=== PATIENT | male | born 1995 ===

== ENCOUNTER 2021-06-09 01:37 | Emergency (ER) | payer MEDICAID, SELFPAY ==
--- NOTE | ~2021-06-09 | CT_ITS ---
EXAMINATION: CT ABDOMEN AND PELVIS WITH CONTRAST CLINICAL INFORMATION: Right lower quadrant/flank pain COMPARISON: None TECHNIQUE: Multidetector volumetric images were obtained from the superior aspect of the liver through the pubic symphysis following administration 85 mL of Omnipaque 350 intravenous contrast. Sagittal and coronal reformatted images were obtained on the technologist's workstation. Oral contrast: No This CT examination was performed using dose optimization techniques as appropriate, variously including the following: *Automated exposure control *Adjustment of mA and/or kV according to patient size (this includes techniques or standardized protocols for targeted exams where dose is matched to indication/reason for exam; i.e. extremities or head) *Use of iterative reconstruction technique DLP: 394 mGy-cm FINDINGS: LUNG BASES: The visualized lung bases are unremarkable. LIVER, GALLBLADDER, AND BILIARY TREE: The liver is normal in size, shape, and attenuation. No focal hepatic lesion or biliary ductal dilatation is present. The gallbladder is unremarkable with no evidence of radiopaque gallstones, gallbladder wall thickening, or obvious pericholecystic inflammatory changes. PANCREAS: Unremarkable. SPLEEN: Unremarkable. ADRENAL GLANDS: Unremarkable. KIDNEYS AND URETERS: The kidneys are normal in size, shape, and attenuation. Delayed right-sided nephrogram. Mild right hydroureteronephrosis. 0.2 cm calculus in the distal ureter approximately 1 cm proximal to the ureterovesicular junction. No additional calculi noted. BLADDER: Decompressed with no gross abnormality. GASTROINTESTINAL TRACT: The stomach is unremarkable. Normal caliber small bowel. No obstruction. No colonic wall thickening or inflammatory change. No free air or free fluid. The appendix is not definitively seen. ABDOMINAL WALL: No significant hernia is appreciated. LYMPH NODES: Normal. VASCULAR: Unremarkable. PELVIC VISCERA: The prostate and seminal vesicles are unremarkable. OSSEOUS STRUCTURES: No acute or suspicious osseous abnormality. CT/CT abdomen pelvis w con IMPRESSION: Mild right hydroureteronephrosis with a 0.2 cm distal ureteral obstructing calculus.
[2021-06-09 01:41] VITALS: BP 127/74; PULSE 67; RESP 16; TEMP 36.8; O2SAT 96; BMI 25.1
[2021-06-09] MEDS: ondansetron HCL 4 MG/2 ML VIAL IVPUSH ×2 (02:22→04:24)
--- NOTE | 2021-06-09 02:24 | PC.NURSE ---
Addendum entered by Karmen Alonso 06/09/21 02:26: Pt unable to provide urine sample at this time, provided with bedside urinal when able. Original Note: Pt ambulating from the [facility] into room 17, pt vomiting multiple times while ambulating into room. Pt reports a s/o of right sided lower back pain followed by episodes of vomiting. Pt denies dysuria, reports a hx of kidney stones. IV established, labs obtained, pt medicated with Zofran per NOV. Awaiting primary MD beckman.
[2021-06-09 02:27] LABS: MANUAL DIFF FLAG NO
[2021-06-09 02:28] LABS: Basophils Percent Auto 0.3 % (0-2); Eosinophils Absolute Auto 0.2 X10*3/uL (0.0-0.4); Eosinophils Percent Auto 1.3 % (0-4); Hematocrit 41.4 % (42-52); Imm Gran Abs Auto 0.07 X10*3/uL (0.00-0.03); Imm Gran Pct Auto 0.5 % (0.0-0.4); Lymphocytes Absolute Auto 3.8 X10*3/uL (1.2-4.9); Lymphocytes Percent Auto 26.5 % (20-40); Mean Corpuscular HGB Conc 33.8 g/dl (31.0-36.0); Mean Corpuscular Hemoglobin 29.8 pg (27.0-33.0); Mean Corpuscular Volume 88.1 fL (80-98); Mean Platelet Volume 9.9 fL (9.4-12.4); Monocytes Absolute Auto 0.9 X10*3/uL (0.1-1.2); Monocytes Percent Auto 6.4 % (2-11); Neutrophils Absolute Auto 9.3 X10*3/uL (2.0-8.3); Platelet Count 283 X10*3/uL (160-400); Red Cell Distribution Width 12.5 % (11.0-16.0); White Blood Count 14.3 X10*3/uL (4.8-10.8)
[2021-06-09 02:45] LABS: Alanine Aminotransferase 18 U/L (0-40); Albumin Level 4.6 g/dL (3.5-5.0); Alkaline Phosphatase 78 U/L (39-117); Anion Gap 15 (12-20); Aspartate Amino Transferase 22 U/L (5-37); Bilirubin Direct 0.2 mg/dL (0.0-0.5); Bilirubin Total 0.2 mg/dL (0.0-1.0); Blood Urea Nitrogen 14 mg/dL (9-16); Calcium 9.7 mg/dL (8.4-10.2); Carbon Dioxide 23 mmol/L (22-29); Chloride 106 mmol/L (96-108); Creatinine Clr Calc Pharmacy 93.9; Estimated Glomerular Filt Rate > 60; Glucose Random 124 mg/dL (60-115); Lipase 15 U/L (8-78); Sodium 140 mmol/L (135-145); Total Protein 7.3 g/dL (6.5-8.0)
--- NOTE | 2021-06-09 02:55 | ED_ITS ---
HPI - Abdominal Pain General Chief Complaint: Abdominal Pain Stated Complaint: stomach/abd pain Time Seen by Provider: 06/09/21 01:45 Source: patient Mode of arrival: ambulatory History of Present Illness HPI narrative: 26-year-old male without significant past medical history presents with acute onset of right-sided sharp, do not abdominal pain that radiates into the right lower quadrant with associated nausea but no vomiting and states he gets chills when the pain is ?really bad?. In addition, patient endorses that he is having some dysuria with this pain. Related Data Previous Rx's Medication Instructions Recorded prednisone 20 mg tablet 20 mg PO DAILY 4 Days #4 tab 06/09/21 tamsulosin 0.4 mg capsule (Flomax) 0.4 mg PO BEDTIME #4 cap 06/09/21 Allergies Allergy/AdvReac Type Severity Reaction Status Date / Time No Known Allergies Allergy Verified 06/09/21 01:40 Review of Systems Review of Systems Pertinent positives and negatives as stated in HPI and 10 point review of systems is otherwise negative. Physical Exam Vital Signs: Vital Signs: Last Vital Signs Temp 98.3 F 06/09/21 01:41 Pulse 67 06/09/21 01:41 Resp 16 06/09/21 01:41 BP 127/74 06/09/21 01:41 Pulse Ox 96 06/09/21 01:41 Body Mass Index 25.1 VITAL SIGNS: Reviewed. GENERAL: Well developed, well nourished, in no acute distress. HEAD: Normocephalic/atraumatic EYES: PERRLA, EOMI OROPHARYNX: no oral lesions noted, posterior pharynx clear LUNGS: Normal breath sounds. No adventitious sounds or accessory muscle use. SpO2<96> CARDIOVASCULAR: Regular rate and rhythm without noted murmurs ABDOMEN: Soft, tenderness noted along right flank with CVA tenderness has well as pain on palpation the right lower quadrant without rebound, non-distended with bowel sounds. SKIN: Inspection of the skin reveals no rashes, NEUROLOGIC: Alert and oriented x 4. Course Course Course Narrative: 26-year-old male with history and clinical presentation suggestive of renal colic, appendicitis. Review of all investigations consistent with ureterolithiasis with mild hydro and after receiving pain medication patient is now feeling much better, pain free, and tolerating oral intake. He will be discharged in stable condition and was informed of all results. MDM - Abdominal Pain Lab Data Result diagrams: 06/09/21 02:21 10 02:21 Labs: Lab Results 06/09/21 06/09/21 06/09/21 Range/Units 02:21 02:21 02:21 WBC 14.3 H (4.8-10.8) X10*3/uL RBC 4.70 (4.60-5.80) X10*6/uL Hgb 14.0 (14.0-18.0) g/dl Hct 41.4 L (42-52) % MCV 88.1 (80-98) fL MCH 29.8 (27.0-33.0) pg MCHC 33.8 (31.0-36.0) g/dl RDW 12.5 (11.0-16.0) % Plt Count 283 (160-400) X10*3/uL MPV 9.9 (9.4-12.4) fL Immature Gran % (Auto) 0.5 H (0.0-0.4) % Neut % (Auto) 65.0 (45-73) % Lymph % (Auto) 26.5 (20-40) % [place] % (Auto) 6.4 (2-11) % Eos % (Auto) 1.3 (0-4) % Baso % (Auto) 0.3 (0-2) % Lymph # (Auto) 3.8 (1.2-4.9) X10*3/uL [place] # (Auto) 0.9 (0.1-1.2) X10*3/uL Eos # (Auto) 0.2 (0.0-0.4) X10*3/uL Baso # (Auto) 0.0 (0.0-0.2) X10*3/uL Abs Immat Gran (auto) 0.07 H (0.00-0.03) X10*3/uL Absolute Neuts (auto) 9.3 H (2.0-8.3) X10*3/uL Absolute Nucleated RBC 0.000 (0.0-0.012) X10*3/uL Nucleated RBC % (auto) 0.0 (0.0-0.2) /100WBC Sodium 140 (135-145) mmol/L Potassium 4.0 (3.3-5.1) mmol/L Chloride 106 (96-108) mmol/L Carbon Dioxide 23 (22-29) mmol/L Anion Gap 15 (12-20) BUN 14 (9-16) mg/dL Creatinine 1.17 (0.5-1.4) mg/dL Estim Creat Clear Calc 93.9 Estimated GFR > 60 Random Glucose 124 H (60-115) mg/dL Calcium 9.7 (8.4-10.2) mg/dL Total Bilirubin 0.2 Cancelled (0.0-1.0) mg/dL Direct Bilirubin 0.2 Cancelled (0.0-0.5) mg/dL AST 22 Cancelled (5-37) U/L ALT 18 Cancelled (0-40) U/L Alkaline Phosphatase 78 Cancelled (39-117) U/L Total Protein 7.3 Cancelled (6.5-8.0) g/dL Albumin 4.6 Cancelled (3.5-5.0) g/dL Lipase 15 Cancelled (8-78) U/L Urine Color Urine Appearance Urine pH (5.0-8.0) Ur Specific [place] (1.005-1.025) Urine Protein (NEG-TRACE) MG/DL Urine Glucose (UA) (NEG) MG/DL Urine Ketones (NEG) MG/DL Urine Blood (NEG) Urine Nitrite (NEG) Ur Leukocyte Esterase (NEG) 06/09/21 Range/Units 04:29 WBC (4.8-10.8) X10*3/uL RBC (4.60-5.80) X10*6/uL Hgb (14.0-18.0) g/dl Hct (42-52) % MCV (80-98) fL MCH (27.0-33.0) pg MCHC (31.0-36.0) g/dl RDW (11.0-16.0) % Plt Count (160-400) X10*3/uL MPV (9.4-12.4) fL Immature Gran % (Auto) (0.0-0.4) % Neut % (Auto) (45-73) % Lymph % (Auto) (20-40) % [place] % (Auto) (2-11) % Eos % (Auto) (0-4) % Baso % (Auto) (0-2) % Lymph # (Auto) (1.2-4.9) X10*3/uL [place] # (Auto) (0.1-1.2) X10*3/uL Eos # (Auto) (0.0-0.4) X10*3/uL Baso # (Auto) (0.0-0.2) X10*3/uL Abs Immat Gran (auto) (0.00-0.03) X10*3/uL Absolute Neuts (auto) (2.0-8.3) X10*3/uL Absolute Nucleated RBC (0.0-0.012) X10*3/uL Nucleated RBC % (auto) (0.0-0.2) /100WBC Sodium (135-145) mmol/L Potassium (3.3-5.1) mmol/L Chloride (96-108) mmol/L Carbon Dioxide (22-29) mmol/L Anion Gap (12-20) BUN (9-16) mg/dL Creatinine (0.5-1.4) mg/dL Estim Creat Clear Calc Estimated GFR Random Glucose (60-115) mg/dL Calcium (8.4-10.2) mg/dL Total Bilirubin (0.0-1.0) mg/dL Direct Bilirubin (0.0-0.5) mg/dL AST (5-37) U/L ALT (0-40) U/L Alkaline Phosphatase (39-117) U/L Total Protein (6.5-8.0) g/dL Albumin (3.5-5.0) g/dL Lipase (8-78) U/L Urine Color YELLOW Urine Appearance CLEAR Urine pH 6.0 (5.0-8.0) Ur Specific [place] >= 1.030 H (1.005-1.025) Urine Protein TRACE (NEG-TRACE) MG/DL Urine Glucose (UA) NEG (NEG) MG/DL Urine Ketones NEG (NEG) MG/DL Urine Blood NEG (NEG) Urine Nitrite NEG (NEG) Ur Leukocyte Esterase NEG (NEG) Discharge Plan Discharge Clinical Impression: Renal colic, Ureterolithiasis Patient Disposition: Home, Self-Care Instructions: Renal Colic (ED), Ureteral Stones (ED) Additional Instructions: 1. Increase fluid hydration, especially with water. 2. Tylenol 1000 mg, orally, every 6 hours as needed for pain control. Do not exceed 4000 mg within 24 hours. 3. Ibuprofen 400 mg, orally with milk or food, every 6 hours as needed for pain control. 4. You have been provided with a referral to see Urology regarding your kidney stone and you should call Wednesday morning. Return to the ER for acute worsening of your symptoms. Prescriptions: New tamsulosin [Flomax] 0.4 mg capsule 0.4 mg PO BEDTIME Qty: 4 RF: 0 prednisone 20 mg tablet 20 mg PO DAILY 4 Days Qty: 4 RF: 0 Referrals: [facility] [Primary Care Provider] - 2 days Ray Allen MD [Physician] - 2 days [facility] Past Medical History Source: nursing notes reviewed Medical History No known health problems Social History Social History Advance Directives: No Advance Directives Information Provided: Yes
[2021-06-09] MEDS: 0.9 % Sodium Chloride 1,000 ML 999 ML IV (03:05)
[2021-06-09] MEDS: Ketorolac Tromethamine 15 MG/ML VIAL IVPUSH (03:05)
--- NOTE | 2021-06-09 03:27 | PC.NURSE ---
Pt off to CT on hospital bed.
--- NOTE | 2021-06-09 03:48 | PC.NURSE ---
Pt returns from CT on hospital bed at this time. Per CT staff, pt vomiting several times in CT. Awaiting CT results.
[2021-06-09] MEDS: fentaNYL citrate/PF 100 MCG/2 ML VIAL 25 MCG IVPUSH (04:25)
--- NOTE | 2021-06-09 04:29 | PC.NURSE ---
Pt medicated per NOV. UA obtained and sent.
[2021-06-09 04:42] LABS: Appearance Urine CLEAR; Color Urine YELLOW; Glucose Urine UA NEG (NEG); Leukocyte Esterase Urine NEG (NEG); Nitrite Urine NEG (NEG); Specific Gravity - Urine >= 1.030 (1.005-1.025); Urine Blood NEG (NEG); Urine Ketones NEG (NEG); Urine Protein TRACE MG/DL (NEG-TRACE)
--- NOTE | 2021-06-09 05:42 | PC.NURSE ---
MD at bedside discussing results and plan for discharge.
[2021-06-09 05:56] VITALS: BP 103/62; PULSE 68; RESP 16; O2SAT 98
== END 2021-06-09 06:34 | disposition home or self-care (01) ==
PROVIDERS: Emergency Provider Student in an Organized Health Care Education/Training Program
DX: N20.1 Calculus of ureter (principal); R11.0 Nausea; N23 Unspecified renal colic; Z79.899 Other long term (current) drug therapy
CPT/HCPCS: 36415; 74177; 80053; 81003; 82248; 83690; 85025; 96361; 96374; 96375; 96376; 99284; J1885; J2405; J3010

== ENCOUNTER 2022-05-12 23:06 | Emergency (ER) | payer MEDICAID, SELFPAY ==
--- NOTE | ~2022-05-12 | CT_ITS ---
EXAMINATION: CT ABDOMEN AND PELVIS WITHOUT CONTRAST CLINICAL INFORMATION: Right-sided pain with history of stones COMPARISON: 06/09/2021 TECHNIQUE: Multidetector volumetric imaging was performed from the superior aspect of the liver through the pubic symphysis. Sagittal and coronal reformatted images were obtained on the technologist's workstation. This CT examination was performed using dose optimization techniques as appropriate, variously including the following: *Automated exposure control *Adjustment of mA and/or kV according to patient size (this includes techniques or standardized protocols for targeted exams where dose is matched to indication/reason for exam; i.e. extremities or head) *Use of iterative reconstruction technique DLP: 453 mGy-cm FINDINGS: LUNG BASES: The visualized lung bases are unremarkable. LIVER, GALLBLADDER, AND BILIARY TREE: The liver is normal in size, shape, and attenuation. No focal hepatic lesion or biliary ductal dilatation is identified. The gallbladder is unremarkable with no evidence of radiopaque gallstones, gallbladder wall thickening, or obvious pericholecystic inflammatory changes. PANCREAS: Unremarkable. SPLEEN: Unremarkable. ADRENAL GLANDS: Unremarkable. KIDNEYS AND URETERS: There is a 2 mm calculus in the distal right ureter with minimal hydronephrosis. No left hydronephrosis. Several punctate bilateral renal calculi are noted. BLADDER: Unremarkable. GASTROINTESTINAL TRACT: No evidence of bowel obstruction. No significant bowel wall thickening is seen. Appendix is suspected to be collapsed. No free air or significant free fluid is seen. ABDOMINAL WALL: No significant hernia is appreciated. LYMPH NODES: No lymphadenopathy is seen, though assessment is limited in the absence of intravenous contrast. VASCULAR: Unremarkable. PELVIC VISCERA: Unremarkable. OSSEOUS STRUCTURES: Unremarkable. CT/CT abdomen pelvis wo IV con IMPRESSION: 1. Distal right ureteral calculus measuring 2 mm with minimal hydronephrosis. 2. Punctate bilateral renal calculi.
[2022-05-12 23:35] VITALS: BP 132/66; PULSE 63; RESP 18; TEMP 36.7; O2SAT 98; BMI 23.2
[2022-05-12 23:48] LABS: MANUAL DIFF FLAG NO
[2022-05-12 23:49] LABS: Basophils Percent Auto 0.2 % (0-2); Eosinophils Absolute Auto 0.3 X10*3/uL (0.0-0.4); Eosinophils Percent Auto 1.6 % (0-4); Hemoglobin 13.2 g/dl (14.0-18.0); Imm Gran Abs Auto 0.07 X10*3/uL (0.00-0.03); Imm Gran Pct Auto 0.4 % (0.0-0.4); Lymphocytes Absolute Auto 4.6 X10*3/uL (1.2-4.9); Lymphocytes Percent Auto 27.3 % (20-40); Mean Corpuscular HGB Conc 34.7 g/dl (31.0-36.0); Mean Corpuscular Hemoglobin 31.5 pg (27.0-33.0); Mean Corpuscular Volume 90.7 fL (80.0-98.0); Mean Platelet Volume 10.6 fL (9.4-12.4); Monocytes Absolute Auto 1.3 X10*3/uL (0.1-1.2); Monocytes Percent Auto 7.8 % (2-11); Neutrophils Absolute Auto 10.6 x10*3/uL (2.0-8.3); Neutrophils Percent Auto 62.7 % (45-73); Platelet Count 222 X10*3/uL (160-400); Red Blood Count 4.19 X10*6/uL (4.60-5.80); Red Cell Distribution Width 13.2 % (11.0-16.0); White Blood Count 16.9 X10*3/uL (4.8-10.8)
[2022-05-13 00:09] LABS: Alanine Aminotransferase 23 U/L (0-40); Albumin Level 4.5 g/dL (3.5-5.0); Alkaline Phosphatase 74 U/L (39-117); Anion Gap 16 (12-20); Aspartate Amino Transferase 26 U/L (5-37); Bilirubin Total 0.2 mg/dL (0.0-1.0); Blood Urea Nitrogen 15 mg/dL (9-16); Calcium 9.5 mg/dL (8.4-10.2); Carbon Dioxide 23 mmol/L (22-29); Chloride 107 mmol/L (96-108); Creatinine Clr Calc Pharmacy 91.7; Estimated Glomerular Filt Rate > 60; Glucose Random 100 mg/dL (60-115); Potassium 3.6 mmol/L (3.3-5.1); Sodium 142 mmol/L (135-145); Total Protein 7.1 g/dL (6.5-8.0)
[2022-05-13 04:00] VITALS: BP 107/62; PULSE 62; RESP 13; TEMP 36.6; O2SAT 99
--- NOTE | 2022-05-13 04:00 | ED.ABDPAIN ---
HPI - Abdominal Pain General Chief Complaint: Abdominal Pain Stated Complaint: kidney stones Time Seen by Provider: 05/13/22 03:56 Source: patient Mode of arrival: ambulatory Limitations: no limitations History of Present Illness HPI narrative: Patient's history of kidney stones in the past came with several months of pain in the right mid abdomen radiating to the right testicle since yesterday pain got worse prior to arrival with nausea and vomiting patient had 1 episode of kidney stone in the past mother has history of kidney stones. No hematuria no fever or chills Related Data Previous Rx's Medication Instructions Recorded prednisone 20 mg tablet 20 mg PO DAILY 4 days #4 tabs 06/09/21 tamsulosin 0.4 mg capsule (Flomax) 0.4 mg PO BEDTIME #4 caps 06/09/21 ondansetron 4 mg disintegrating 4 mg PO Q6-8H PRN nausea and 05/13/22 tablet vomiting #7 tabs oxycodone 5 mg tablet 5 mg PO Q6H PRN Moderate Pain 05/13/22 (Scale Score 5-6) #20 tabs tamsulosin 0.4 mg capsule (Flomax) 0.4 mg PO DAILY #7 caps 05/13/22 Allergies Allergy/AdvReac Type Severity Reaction Status Date / Time No Known Allergies Allergy Verified 06/09/21 01:40 Review of Systems Review of Systems Yes all other systems are reviewed and are negative [facility] Past Medical History Medical History No known health problems Social History Social History Patient Tobacco Use Status: Current everyday Tobacco user Smoked in Last 30 Days: Yes Substance Use Type: Marijuana Advance Directives: No Advance Directives Information Provided: No Physical Exam ED Vital Signs: Vital Signs - 24 hr 05/12/22 23:35 05/13/22 04:00 Temperature 98.1 F 97.9 F Pulse Rate 63 62 Respiratory Rate 18 13 Blood Pressure 132/66 107/62 Pulse Oximetry 98 99 Oxygen Delivery Method Room Air Room Air BMI result Body Mass Index 23.2 Appearance: Alert. Oriented X3. In moderate distress Eyes: PERRLA, No Nystagmus ENT: Pharynx normal. Oral Mucosa moist Neck: Normal inspection. Neck supple. CVS: Normal heart rate and rhythm. Pulses normal. Respiratory: No respiratory distress. Equal air entry bilateral, no wheezing/rales/rhonchi Abdomen: Soft and nontender. Bowel sounds are present, no mass palpable, right CVA tenderness+ Skin: Skin warm and dry. Normal skin color. Normal skin turgor. Extremities: No lower extremity edema. No calf tenderness Neuro: Oriented X 3. No motor deficit. MDM - Abdominal Pain Differential Diagnosis Differential diagnosis: Likely acute appendicitis and calculus of kidney Lab Data Attestation: I reviewed the patient's lab results. Result diagrams: 05/12/22 23:39 05/12/22 23:39 Labs: Lab Results 05/12/22 05/12/22 Range/Units 23:39 23:39 WBC 16.9 H (4.8-10.8) X10*3/uL RBC 4.19 L (4.60-5.80) X10*6/uL Hgb 13.2 L (14.0-18.0) g/dl Hct 38.0 L (42.0-52.0) % MCV 90.7 (80.0-98.0) fL MCH 31.5 (27.0-33.0) pg MCHC 34.7 (31.0-36.0) g/dl RDW 13.2 (11.0-16.0) % Plt Count 222 (160-400) X10*3/uL MPV 10.6 (9.4-12.4) fL Immature Gran % (Auto) 0.4 (0.0-0.4) % Neut % (Auto) 62.7 (45-73) % Lymph % (Auto) 27.3 (20-40) % [place] % (Auto) 7.8 (2-11) % Eos % (Auto) 1.6 (0-4) % Baso % (Auto) 0.2 (0-2) % Lymph # (Auto) 4.6 (1.2-4.9) X10*3/uL [place] # (Auto) 1.3 H (0.1-1.2) X10*3/uL Eos # (Auto) 0.3 (0.0-0.4) X10*3/uL Baso # (Auto) 0.0 (0.0-0.2) X10*3/uL Abs Immat Gran (auto) 0.07 H (0.00-0.03) X10*3/uL Absolute Neuts (auto) 10.6 H (2.0-8.3) x10*3/uL Absolute Nucleated RBC 0.000 (0.0-0.012) X10*3/uL Nucleated RBC % (auto) 0.0 (0.0-0.2) /100WBC Sodium 142 (135-145) mmol/L Potassium 3.6 (3.3-5.1) mmol/L Chloride 107 (96-108) mmol/L Carbon Dioxide 23 (22-29) mmol/L Anion Gap 16 (12-20) BUN 15 (9-16) mg/dL Creatinine 1.16 (0.5-1.4) mg/dL Estim Creat Clear Calc 91.7 Estimated GFR > 60 Random Glucose 100 (60-115) mg/dL Calcium 9.5 (8.4-10.2) mg/dL Total Bilirubin 0.2 (0.0-1.0) mg/dL AST 26 (5-37) U/L ALT 23 (0-40) U/L Alkaline Phosphatase 74 (39-117) U/L Total Protein 7.1 (6.5-8.0) g/dL Albumin 4.5 (3.5-5.0) g/dL Discharge Plan Discharge Clinical Impression: Calculus of kidney Patient Disposition: Home, Self-Care Instructions: Kidney Stones (ED) Additional Instructions: Drink plenty of fluids Pain medication and Flomax advised Follow with urologist if pain continues Prescriptions: New tamsulosin [Flomax] 0.4 mg capsule 0.4 mg PO DAILY Qty: 7 0RF ondansetron 4 mg tablet,disintegrating 4 mg PO Q6-8H PRN (Reason: nausea and vomiting) Qty: 7 0RF oxycodone 5 mg tablet 5 mg PO Q6H PRN (Reason: Moderate Pain (Scale Score 5-6)) Qty: 20 0RF Rx Instructions: Partial Fill upon patient request. No Action tamsulosin [Flomax] 0.4 mg capsule 0.4 mg PO BEDTIME Qty: 4 0RF prednisone 20 mg tablet 20 mg PO DAILY 4 Days Qty: 4 0RF Referrals: Ray Allen MD [Physician] - 1 week
[2022-05-13] MEDS: Morphine Sulfate 4 MG/ML CARTRIDGE IVPUSH (04:54)
[2022-05-13] MEDS: 0.9 % Sodium Chloride 1,000 ML 999 ML IV (04:54)
[2022-05-13] MEDS: Ketorolac Tromethamine 30 MG/ML VIAL IVPUSH (04:55)
[2022-05-13] MEDS: ondansetron HCL 4 MG/2 ML VIAL IVPUSH (04:55)
--- NOTE | 2022-05-13 05:03 | PC.NURSE ---
Pt medicated per NOV, A&O, pt resting quietly while on his cellphone.
[2022-05-13 06:25] VITALS: BP 105/64; PULSE 63; RESP 14; TEMP 37.6
--- NOTE | 2022-05-13 06:30 | PC.NURSE ---
discharge instructions given and explained to pt, all questions answered, pt ambulates safely and independently
== END 2022-05-13 06:30 | disposition home or self-care (01) ==
PROVIDERS: Emergency Provider Internal Medicine
DX: N13.2 Hydronephrosis with renal and ureteral calculous obstruction (principal); R10.9 Unspecified abdominal pain; Z87.442 Personal history of urinary calculi; F17.200 Nicotine dependence, unspecified, uncomplicated; F12.90 Cannabis use, unspecified, uncomplicated
CPT/HCPCS: 36415; 74176; 80053; 85025; 96374; 96375; 99284; 99285; J1885; J2270; J2405

== ENCOUNTER 2022-05-22 21:17 | Emergency (ER) | payer MEDICAID, SELFPAY ==
[2022-05-22 22:27] VITALS: BP 123/76; PULSE 63; RESP 20; TEMP 36.6; O2SAT 96; BMI 22.1
[2022-05-23 01:14] VITALS: BP 111/59; PULSE 63; O2SAT 99
--- NOTE | 2022-05-23 01:28 | ED.MALEGU ---
HPI - Male Genitourinary General Chief complaint: Urogenital-Male Stated complaint: kidney stones Time Seen by Provider: 05/23/22 01:21 Source: patient and old records reviewed Mode of arrival: ambulatory Limitations: no limitations History of Present Illness HPI Narrative: dx with R distal 2mm non obs stone 05/13 had pain earlier that was severe couldn't urinate, took his medication since waiting thinks he passed the stone and saw something in his urine Complaint: other (?passed stone) Onset (ago): week(s) (10 days ago ) Duration: now resolved Location: right flank Severity: moderate Quality: sharp Exacerbating factors: none Context: other (known stone) Associated symptoms: Reports urinary retention Related Data Previous Rx's Medication Instructions Recorded prednisone 20 mg tablet 20 mg PO DAILY 4 days #4 tabs 06/09/21 tamsulosin 0.4 mg capsule (Flomax) 0.4 mg PO BEDTIME #4 caps 06/09/21 ondansetron 4 mg disintegrating 4 mg PO Q6-8H PRN nausea and 05/13/22 tablet vomiting #7 tabs oxycodone 5 mg tablet 5 mg PO Q6H PRN Moderate Pain 05/13/22 (Scale Score 5-6) #20 tabs tamsulosin 0.4 mg capsule (Flomax) 0.4 mg PO DAILY #7 caps 05/13/22 Allergies Allergy/AdvReac Type Severity Reaction Status Date / Time No Known Allergies Allergy Verified 05/22/22 22:31 Review of Systems Review of Systems: Constitutional : No Weight loss, No Fever, No Chills ENT/Mouth : No sore throat, No Rhinorrhea Eyes: No Swelling, No Redness Cardiovascular : No Chest Pain, No SOB, NoEdema Respiratory : No Cough, No Sputum, No Wheezing Gastrointestinal : Positive Nausea, no Vomiting, no Diarrhea, positive abdominal Pain, No Hematochezia, No Melena Genitourinary : No Dysuria, No Urinary Frequency, No Hematuria, No Urgency , pos retention Musculoskeletal : No joint pain, No Myalgias, No Joint Swelling Skin : No Skin Lesions, No rash Neuro : No Weakness, No Numbness, No Dizziness, No Headache Psych : No Anxiety/Panic, No Depression Heme/Lymph: No Bruising, No Lymphadenopathy Endocrine : No Polyuria, No Polydipsia All other systems reviewed and are negative. [facility] Past Medical History Attestation statement: The following information was validated with the patient. Medical History No known health problems Social History Social History Patient Tobacco Use Status: Current everyday Tobacco user Substance Use Type: Marijuana Advance Directives: No Advance Directives Information Provided: No Physical Exam Vital Signs: Vital Signs: Last Vital Signs Temp 97.9 F 05/22/22 22:27 Pulse 63 05/23/22 01:14 Resp 20 05/22/22 22:27 BP 111/59 L 05/23/22 01:14 Pulse Ox 99 05/23/22 01:14 O2 Del Method 05/23/22 01:14 BMI result Body Mass Index 22.1 Appearance: Alert. Oriented X3. No acute distress. Eyes: Pupils equal, round and reactive to light. ENT: Pharynx normal. Neck: Normal inspection. Neck supple. CVS: Normal heart rate and rhythm. Pulses normal. Respiratory: No respiratory distress. Breath sounds normal. Abdomen: Soft and nontender. Skin: Skin warm and dry. Normal skin color. Normal skin turgor. Extremities: No lower extremity edema. No calf ttp Neuro: Oriented X 3. No motor deficit. No sensory deficit. Course Course Course Narrative: kidney function normal suspect he passed stone has no pain WBC cells but also RBCs and epi doubt UTI - no bacteria seen MDM - Male Genitourinary MDM Narrative Medical decision making narrative: 27 yo male with known small R ureter stone 2mm - came in with pain but has since think he passed it after he though he saw something in the urine, at this time will test his urine and repeat chem7 for kidney function Lab Data Result diagrams: 05/23/22 01:59 Labs: Lab Results 05/23/22 05/23/22 Range/Units 01:46 01:59 Sodium 141 (135-145) mmol/L Potassium 4.7 D (3.3-5.1) mmol/L Chloride 104 (96-108) mmol/L Carbon Dioxide 27 (22-29) mmol/L Anion Gap 15 (12-20) BUN 13 (9-16) mg/dL Creatinine 1.21 (0.5-1.4) mg/dL Estim Creat Clear Calc 86.6 Estimated GFR > 60 Random Glucose 99 (60-115) mg/dL Calcium 9.9 (8.4-10.2) mg/dL Urine Color Yellow Urine Appearance Clear Urine pH 6.0 (5.0-9.0) Ur Specific [place] 1.020 (1.005-1.025) Urine Protein Trace (Neg-Trace) mg/dL Urine Glucose (UA) Negative (Negative) mg/dL Urine Ketones 40 (Negative) mg/dL Urine Blood Small (1+) H (Negative) Urine Nitrite Negative (Negative) Ur Leukocyte Esterase Moderate (2+) H (Negative) Urine RBC 11-20 H (0-2) /HPF Urine WBC 11-20 H (0-5) /HPF Ur Squamous Epith Cells 3-5 (0-2) /HPF Calcium Oxalate Crystal Present Urine Bacteria None Seen (None Seen) Hyaline Casts 6-10 (0-2) /LPF Discharge Plan Discharge Clinical Impression: Calculus, ureteral Patient Disposition: Home, Self-Care Instructions: Ureteral Stones (ED) Additional Instructions: return to ED for any worsening symptoms or concerns based off your exam suspect you passed your stone continue to drink plenty of fluids stay hydrated Prescriptions: No Action tamsulosin [Flomax] 0.4 mg capsule 0.4 mg PO DAILY Qty: 7 0RF ondansetron 4 mg tablet,disintegrating 4 mg PO Q6-8H PRN (Reason: nausea and vomiting) Qty: 7 0RF oxycodone 5 mg tablet 5 mg PO Q6H PRN (Reason: Moderate Pain (Scale Score 5-6)) Qty: 20 0RF Rx Instructions: Partial Fill upon patient request. tamsulosin [Flomax] 0.4 mg capsule 0.4 mg PO BEDTIME Qty: 4 0RF prednisone 20 mg tablet 20 mg PO DAILY 4 Days Qty: 4 0RF Stand Alone Forms: Work/School Release
[2022-05-23 01:52] LABS: Appearance Urine Clear; Color Urine Yellow; Glucose Urine UA Negative (Negative); Leukocyte Esterase Urine Moderate (2+) (Negative); Nitrite Urine Negative (Negative); UMIC TRIGGER UACC YES; Urine Blood Small (1+) (Negative); Urine Ketones 40 mg/dL (Negative); Urine Protein Trace mg/dL (Neg-Trace)
[2022-05-23 02:05] LABS: Bacteria Urine None Seen (None Seen); Calcium Oxalate Crystals Urine Present; UACC Culture Trigger YES
[2022-05-23 02:27] LABS: Anion Gap 15 (12-20); Blood Urea Nitrogen 13 mg/dL (9-16); Calcium 9.9 mg/dL (8.4-10.2); Carbon Dioxide 27 mmol/L (22-29); Chloride 104 mmol/L (96-108); Creatinine Clr Calc Pharmacy 86.6; Estimated Glomerular Filt Rate > 60; Glucose Random 99 mg/dL (60-115); Potassium 4.7 mmol/L (3.3-5.1); Sodium 141 mmol/L (135-145)
--- NOTE | 2022-05-23 02:30 | PC.NURSE ---
pt a&ox3, vss, pt resting comfortably, RR even and unlabored. no new orders at this time.
== END 2022-05-23 02:47 | disposition home or self-care (01) ==
PROVIDERS: Emergency Provider Emergency Medicine
DX: N20.2 Calculus of kidney with calculus of ureter (principal); F17.200 Nicotine dependence, unspecified, uncomplicated; F12.90 Cannabis use, unspecified, uncomplicated
CPT/HCPCS: 36415; 80048; 81001; 81003; 87086; 99283

== ENCOUNTER 2022-12-31 17:30 | Emergency (ER) | payer MEDICAID, SELFPAY ==
[2022-12-31 18:39] VITALS: BP 106/62; PULSE 66; RESP 18; TEMP 36.8; O2SAT 98; BMI 22.1
--- NOTE | 2022-12-31 18:44 | ED_ITS ---
HPI - Nausea/Vomiting/Diarrhea General Chief complaint: Nausea/Vomiting/Diarrhea Stated complaint: Dehydrated? Related Data Previous Rx's ?Medication ?Instructions ?Recorded prednisone 20 mg tablet 20 mg PO DAILY 4 days #4 tabs 06/09/21 tamsulosin 0.4 mg capsule (Flomax) 0.4 mg PO BEDTIME #4 caps 06/09/21 ondansetron 4 mg disintegrating 4 mg PO Q6-8H PRN nausea and 05/13/22 tablet vomiting #7 tabs oxycodone 5 mg tablet 5 mg PO Q6H PRN Moderate Pain 05/13/22 (Scale Score 5-6) #20 tabs tamsulosin 0.4 mg capsule (Flomax) 0.4 mg PO DAILY #7 caps 05/13/22 hydrocortisone acetate 25 mg 25 mg MS BID 5 days #12 ea 01/01/23 rectal suppository (Anusol-HC) polyethylene glycol 3350 17 17 g PO DAILY PRN constipation 01/01/23 gram/dose oral powder (Miralax) #238 grams cefuroxime axetil 250 mg tablet 250 mg PO BID #14 tabs 01/26/23 ketorolac 10 mg tablet 10 mg PO Q6H PRN pain 5 days #20 01/27/23 tabs oxycodone 5 mg tablet 5 mg PO Q4H PRN pain #14 tabs 01/27/23 tamsulosin 0.4 mg capsule (Flomax) 0.4 mg PO DAILY #30 caps 01/27/23 cephalexin 500 mg capsule 500 mg PO BID #28 caps 02/11/23 cyclobenzaprine 10 mg tablet 10 mg PO TID PRN muscle spasm #10 02/11/23 tabs Allergies Allergy/AdvReac Type Severity Reaction Status Date / Time No Known Allergies Allergy Verified 02/11/23 10:19 [facility] Past Medical History Medical History No known health problems Social History Social History Alcohol intake: never Patient Tobacco Use Status: Current everyday Tobacco user Smoked in Last 30 Days: Yes Use of substances other than those prescribed or required for medical reasons: Yes Substance Use Type: Marijuana Advance Directives: No Advance Directives Information Provided: No Physical Exam 2 Vital Signs: Vital Signs: Last Vital Signs Temp 98.3 F 12/31/22 18:39 Pulse 66 12/31/22 18:39 Resp 18 12/31/22 18:39 BP 106/62 12/31/22 18:39 Pulse Ox 98 12/31/22 18:39 O2 Del Method Room Air 12/31/22 18:39 BMI result Body Mass Index 22.1 Course Course Course Narrative: This is an RME: Additional HPI, ROS, PE not included below will be deferred to primary provider. Medical Decision Making Lab Data 12/31/22 18:53 12/31/22 18:53 Labs: Lab Results 12/31/22 Range/Units 18:53 WBC 10.0 (4.8-10.8) X10*3/uL RBC 4.73 (4.60-5.80) X10*6/uL Hgb 14.0 (14.0-18.0) g/dl Hct 41.8 L (42.0-52.0) % MCV 88.4 (80.0-98.0) fL MCH 29.6 (27.0-33.0) pg MCHC 33.5 (31.0-36.0) g/dl RDW 12.3 (11.0-16.0) % Plt Count 258 (160-400) X10*3/uL MPV 10.3 (9.4-12.4) fL Immature Gran % (Auto) 0.1 (0.0-0.4) % Neut % (Auto) 68.1 (45-73) % Lymph % (Auto) 23.6 (20-40) % Sac % (Auto) 7.3 (2-11) % Eos % (Auto) 0.6 (0-4) % Baso % (Auto) 0.3 (0-2) % Lymph # (Auto) 2.4 (1.2-4.9) X10*3/uL Sac # (Auto) 0.7 (0.1-1.2) X10*3/uL Eos # (Auto) 0.1 (0.0-0.4) X10*3/uL Baso # (Auto) 0.0 (0.0-0.2) X10*3/uL Abs Immat Gran (auto) 0.01 (0.00-0.03) X10*3/uL Absolute Neuts (auto) 6.8 (2.0-8.3) x10*3/uL Absolute Nucleated RBC 0.000 (0.0-0.012) X10*3/uL Nucleated RBC % (auto) 0.0 (0.0-0.2) /100WBC Sodium 144 (135-145) mmol/L Potassium 4.0 (3.3-5.1) mmol/L Chloride 106 (96-108) mmol/L Carbon Dioxide 28 (22-29) mmol/L Anion Gap 14 (12-20) BUN 15 (9-16) mg/dL Creatinine 0.93 (0.5-1.4) mg/dL Estim Creat Clear Calc 112.7 Estimated GFR > 60 Random Glucose 77 (60-115) mg/dL Calcium 9.9 (8.4-10.2) mg/dL Magnesium 2.0 (1.6-2.6) mg/dL Total Bilirubin 0.9 (0.0-1.0) mg/dL AST 21 (5-37) U/L ALT 13 (0-40) U/L Alkaline Phosphatase 62 (39-117) U/L Total Protein 7.1 (6.5-8.0) g/dL Albumin 4.8 (3.5-5.0) g/dL Lipase 20 (8-78) U/L COVID-19 (LOREN) Negative (Negative) COVID-19 Clin Com See Note Influenza Type A (JEFFRY) Negative (Negative) Influenza Type B (JEFFRY) Negative (Negative) Influenza A & B Note See Note Discharge Plan Discharge Clinical Impression: Eloped from emergency department Patient Disposition: Elopement Prescriptions: No Action tamsulosin [Flomax] 0.4 mg capsule 0.4 mg PO DAILY Qty: 7 0RF ondansetron 4 mg tablet,disintegrating 4 mg PO Q6-8H PRN (Reason: nausea and vomiting) Qty: 7 0RF oxycodone 5 mg tablet 5 mg PO Q6H PRN (Reason: Moderate Pain (Scale Score 5-6)) Qty: 20 0RF Rx Instructions: Partial Fill upon patient request. tamsulosin [Flomax] 0.4 mg capsule 0.4 mg PO BEDTIME Qty: 4 0RF prednisone 20 mg tablet 20 mg PO DAILY 4 Days Qty: 4 0RF polyethylene glycol 3350 [Miralax] 17 gram/dose powder 17 g PO DAILY PRN (Reason: constipation) Qty: 238 0RF hydrocortisone acetate [Anusol-HC] 25 mg suppository 25 mg MS BID 5 Days Qty: 12 0RF cephalexin 500 mg capsule 500 mg PO BID Qty: 28 0RF cyclobenzaprine 10 mg tablet 10 mg PO TID PRN (Reason: muscle spasm) Qty: 10 0RF cefuroxime axetil 250 mg tablet 250 mg PO BID Qty: 14 0RF tamsulosin [Flomax] 0.4 mg capsule 0.4 mg PO DAILY Qty: 30 0RF ketorolac 10 mg tablet 10 mg PO Q6H PRN (Reason: pain) 5 Days Qty: 20 0RF oxycodone 5 mg tablet 5 mg PO Q4H PRN (Reason: pain) Qty: 14 0RF Rx Instructions: Patient may request partial fill; Partial Fill upon patient request. Discharge Date/Time: 12/31/22 22:53 Print Language: Albanian
[2022-12-31 18:58] LABS: MANUAL DIFF FLAG NO
[2022-12-31 19:12] LABS: Basophils Percent Auto 0.3 % (0-2); Eosinophils Absolute Auto 0.1 X10*3/uL (0.0-0.4); Eosinophils Percent Auto 0.6 % (0-4); Hematocrit 41.8 % (42.0-52.0); Imm Gran Abs Auto 0.01 X10*3/uL (0.00-0.03); Imm Gran Pct Auto 0.1 % (0.0-0.4); Lymphocytes Absolute Auto 2.4 X10*3/uL (1.2-4.9); Lymphocytes Percent Auto 23.6 % (20-40); Mean Corpuscular HGB Conc 33.5 g/dl (31.0-36.0); Mean Corpuscular Hemoglobin 29.6 pg (27.0-33.0); Mean Corpuscular Volume 88.4 fL (80.0-98.0); Mean Platelet Volume 10.3 fL (9.4-12.4); Monocytes Absolute Auto 0.7 X10*3/uL (0.1-1.2); Monocytes Percent Auto 7.3 % (2-11); Neutrophils Absolute Auto 6.8 x10*3/uL (2.0-8.3); Neutrophils Percent Auto 68.1 % (45-73); Platelet Count 258 X10*3/uL (160-400); Red Blood Count 4.73 X10*6/uL (4.60-5.80); Red Cell Distribution Width 12.3 % (11.0-16.0)
[2022-12-31 19:13] LABS: Alanine Aminotransferase 13 U/L (0-40); Albumin Level 4.8 g/dL (3.5-5.0); Alkaline Phosphatase 62 U/L (39-117); Anion Gap 14 (12-20); Aspartate Amino Transferase 21 U/L (5-37); Bilirubin Total 0.9 mg/dL (0.0-1.0); Blood Urea Nitrogen 15 mg/dL (9-16); Calcium 9.9 mg/dL (8.4-10.2); Carbon Dioxide 28 mmol/L (22-29); Chloride 106 mmol/L (96-108); Creatinine Clr Calc Pharmacy 112.7; Estimated Glomerular Filt Rate > 60; Glucose Random 77 mg/dL (60-115); Lipase 20 U/L (8-78); Sodium 144 mmol/L (135-145); Total Protein 7.1 g/dL (6.5-8.0)
[2022-12-31 19:14] LABS: COVID-19 Test Negative (Negative); IDNOW Serial# 08D9AD1C; IDNOW Serial# BCCEAD1C; Influenza A Negative (Negative); Influenza B2 Negative (Negative)
--- NOTE | 2022-12-31 22:53 | PC.NURSE ---
pt called into [facility] no answer- registered
== END 2022-12-31 22:53 | disposition left against medical advice (07) ==
PROVIDERS: Physician Assistant; Emergency Provider Emergency Medicine
DX: R11.2 Nausea with vomiting, unspecified (principal); R19.7 Diarrhea, unspecified; Z20.822 Contact with and (suspected) exposure to COVID-19; F17.200 Nicotine dependence, unspecified, uncomplicated; F12.90 Cannabis use, unspecified, uncomplicated; Z79.899 Other long term (current) drug therapy
CPT/HCPCS: 80053; 83690; 83735; 85025; 87502; 87635; 99281; 99283

== ENCOUNTER 2023-01-01 18:03 | Emergency (ER) | payer MEDICAID, SELFPAY ==
--- NOTE | ~2023-01-01 | XR_ITS ---
EXAMINATION: XR ABDOMEN KUB CLINICAL INDICATION: Abdominal pain. Question constipation. COMPARISON: 05/13/2022 TECHNIQUE: AP view of the abdomen. FINDINGS: Nonobstructive bowel gas pattern. No dilated loops of bowel. Scattered gas throughout the colon. No significant abnormal colonic stool burden. No suspicious calcifications. No acute osseous abnormality. XR/XR KUB IMPRESSION: Nonobstructive bowel gas pattern. No significant abnormal colonic stool burden.
[2023-01-01 19:34] VITALS: BP 113/77; PULSE 65; RESP 18; TEMP 36.8; O2SAT 99; BMI 23.6
--- NOTE | 2023-01-01 19:35 | ED_ITS ---
HPI - GI Bleed General Chief complaint: Abdominal Pain <AURE Campos - Last Filed: 01/01/23 19:37> Stated complaint: blood in stool, hemarroid? foamy stool, cpl days <AURE Campos - Last Filed: 01/01/23 19:37> Time Seen by Provider: 01/01/23 22:51 <AURE Campos - Last Filed: 01/01/23 19:37> Source: patient, RN notes reviewed and old records reviewed <Bear Ramirez - Last Filed: 01/01/23 23:48> Mode of arrival: ambulatory <Bear Ramirez - Last Filed: 01/01/23 23:48> Limitations: no limitations <Bear Ramirez - Last Filed: 01/01/23 23:48> History of Present Illness HPI Narrative: 27-year-old male presents for evaluation of rectal bleeding. He reports that he has had bright red blood per rectum on and off for the last few months He feels constipated and like he has to strain frequently He reports some nausea vomiting and diarrhea on off for the last few months as well Denies any fevers, chills He states ?I feel like there is a soft, squishy ball near my rectum. ? He states ?it is located on in a in her right side. ? <Bear Ramirez - Last Filed: 01/01/23 23:48> Related Data Home medications: Previous Rx's Medication Instructions Recorded prednisone 20 mg tablet 20 mg PO DAILY 4 days #4 tabs 06/09/21 tamsulosin 0.4 mg capsule (Flomax) 0.4 mg PO BEDTIME #4 caps 06/09/21 ondansetron 4 mg disintegrating 4 mg PO Q6-8H PRN nausea and 05/13/22 tablet vomiting #7 tabs oxycodone 5 mg tablet 5 mg PO Q6H PRN Moderate Pain 05/13/22 (Scale Score 5-6) #20 tabs tamsulosin 0.4 mg capsule (Flomax) 0.4 mg PO DAILY #7 caps 05/13/22 hydrocortisone acetate 25 mg 25 mg CO BID 5 days #12 ea 01/01/23 rectal suppository (Anusol-HC) polyethylene glycol 3350 17 17 g PO DAILY PRN constipation 01/01/23 gram/dose oral powder (Miralax) #238 grams <AURE Campos - Last Filed: 01/01/23 19:37> Allergies/Adverse reactions: Allergies Allergy/AdvReac Type Severity Reaction Status Date / Time No Known Allergies Allergy Verified 12/31/22 18:42 <AURE Campos - Last Filed: 01/01/23 19:37> Review of Systems Constitutional: Constitutional: Denies chills, Denies fever(s) and Reports weakness <Bear Ramirez - Last Filed: 01/01/23 23:48> Gastrointestinal: Gastrointestinal: Reports abdominal pain, Reports hematochezia, Reports constipation, Reports diarrhea, Reports loose stools and Reports nausea <Bear Ramirez - Last Filed: 01/01/23 23:48> Neurologic: Reports weakness <Bear Ramirez - Last Filed: 01/01/23 23:48> [facility] Past Medical History Medical History: Medical History No known health problems <AURE Campos - Last Filed: 01/01/23 19:37> Social History Social History: Social History Patient Tobacco Use Status: Current everyday Tobacco user Smoked in Last 30 Days: No Use of substances other than those prescribed or required for medical reasons: Refusing to respond Substance Use Type: Marijuana Advance Directives: No <AURE Campos - Last Filed: 01/01/23 19:37> Physical Exam Vital Signs: Vital Signs: Last Vital Signs Temp 97.8 F 01/01/23 23:20 Pulse 60 01/01/23 23:20 Resp 16 01/01/23 23:20 BP 111/65 01/01/23 23:20 Pulse Ox 98 01/01/23 23:20 O2 Del Method Room Air 01/01/23 23:20 BMI result Body Mass Index 23.6 <AURE Campos - Last Filed: 01/01/23 19:37> Vital Signs: Last Vital Signs Temp 97.8 F 01/01/23 23:20 Pulse 60 01/01/23 23:20 Resp 16 01/01/23 23:20 BP 111/65 01/01/23 23:20 Pulse Ox 98 01/01/23 23:20 O2 Del Method Room Air 01/01/23 23:20 BMI result Body Mass Index 23.6 <Bear Islasy - Last Filed: 01/01/23 23:48> Const: General: healthy appearing, comfortable, no acute distress, alert and awake <Bear OHudson - Last Filed: 01/01/23 23:48> Nutritional Appearance: well nourished < - Last Filed: 01/01/23 23:48> Orientation/consciousness: patient oriented x3 < Last Filed: 01/01/23 23:48> Resp: Effort & Inspection: normal respiratory effort, able to speak in complete sentences and not labored < Last Filed: 01/01/23 23:48> Cardio: Rate: regular rate < Last Filed: 01/01/23 23:48> Rhythm: regular rhythm < Last Filed: 01/01/23 23:48> GI: Inspection: No distended < Last Filed: 01/01/23 23:48> Palpation (GI): Soft to palpation, not firm, nontender, no guarding and not rigid < Last Filed: 01/01/23 23:48> Auscultation: normoactive bowel sounds <Bear OHudson - Last Filed: 01/01/23 23:48> Rectal Exam - Male: Yes normal sphincter tone and Yes Internal hemorrhoid(s) present (3-4:00 position visible when bearing down) <Bear OHudson - Last Filed: 01/01/23 23:48> Skin: General skin exam: no rashes or lesions noted and elasticity normal < Last Filed: 01/01/23 23:48> Neuro: General: patient oriented x3 <Bear Zeny Last Filed: 01/01/23 23:48> Cranial nerves: Yes Bilaterally intact EOM present <Beareva Ramirez - Last Filed: 01/01/23 23:48> Cognition (Neuro): normal cognition <Bear Ramirez - Last Filed: 01/01/23 23:48> Course Course Course Narrative: RME: 27yo M w/no sig PMHx c/o rectal bleeding x today. Admits sx have been on and off for awhile, but body felt weird today . Reports suspected bump to rectal area. Reports assoc abdominal pain, N/V, diarrhea. denies taking AC Patient presented to the ED yesterday however eloped Labs, UA, occult stool ordered Full HPI, ROS and PE to be performed by primary ED provider. <AURE Campos - Last Filed: 01/01/23 19:37> Medical Decision Making Medical Decision Making MDM Narrative: 27-year-old male presents for evaluation of rectal bleeding. He reports a lump that appears to be a internal hemorrhoid at the 3 o'clock position. He reports constipation will get a KUB. Abdominal exam is reassuring, he is soft, nondistended nontender. Less likely to be surgical abdomen. His blood work is reassuring, his blood counts are consistent with his baseline. His BUN to creatinine ratio is 18. Given the obvious internal hemorrhoids and bright red blood per rectum, this is likely the source. Will treat the internal hemorrhoids with Anusol suppositories. <Bear Ramirez - Last Filed: 01/01/23 23:48> Differential Diagnosis Internal hemorrhoids External hemorrhoid Constipation Diverticular bleed Rectal abscess <Bear Ramirez - Last Filed: 01/01/23 23:48> Lab Data MDM Lab Attestation statement: I reviewed the patient's lab results. <Bear Ramirez - Last Filed: 01/01/23 23:48> Result Diagrams: 01/01/23 21:30 01/01/23 21:30 <AURE Campos - Last Filed: 01/01/23 19:37> Labs: Lab Results 01/01/23 01/01/23 Range/Units 21:30 21:30 WBC 9.2 (4.8-10.8) X10*3/uL RBC 4.63 (4.60-5.80) X10*6/uL Hgb 13.8 L (14.0-18.0) g/dl Hct 40.9 L (42.0-52.0) % MCV 88.3 (80.0-98.0) fL MCH 29.8 (27.0-33.0) pg MCHC 33.7 (31.0-36.0) g/dl RDW 12.5 (11.0-16.0) % Plt Count 243 (160-400) X10*3/uL MPV 10.0 (9.4-12.4) fL Immature Gran % (Auto) 0.1 (0.0-0.4) % Neut % (Auto) 66.6 (45-73) % Lymph % (Auto) 26.7 (20-40) % [place] % (Auto) 6.0 (2-11) % Eos % (Auto) 0.4 (0-4) % Baso % (Auto) 0.2 (0-2) % Lymph # (Auto) 2.5 (1.2-4.9) X10*3/uL [place] # (Auto) 0.6 (0.1-1.2) X10*3/uL Eos # (Auto) 0.0 (0.0-0.4) X10*3/uL Baso # (Auto) 0.0 (0.0-0.2) X10*3/uL Abs Immat Gran (auto) 0.01 (0.00-0.03) X10*3/uL Absolute Neuts (auto) 6.1 (2.0-8.3) x10*3/uL Absolute Nucleated RBC 0.000 (0.0-0.012) X10*3/uL Nucleated RBC % (auto) 0.0 (0.0-0.2) /100WBC Sodium 142 (135-145) mmol/L Potassium 4.0 (3.3-5.1) mmol/L Chloride 107 (96-108) mmol/L Carbon Dioxide 27 (22-29) mmol/L Anion Gap 12 (12-20) BUN 18 H (9-16) mg/dL Creatinine 1.01 (0.5-1.4) mg/dL Estim Creat Clear Calc 107.9 Estimated GFR > 60 Random Glucose 98 (60-115) mg/dL Calcium 10.0 (8.4-10.2) mg/dL Total Bilirubin 0.9 (0.0-1.0) mg/dL Direct Bilirubin 0.3 (0.0-0.5) mg/dL AST 21 (5-37) U/L ALT 13 (0-40) U/L Alkaline Phosphatase 61 (39-117) U/L Total Protein 7.1 (6.5-8.0) g/dL Albumin 4.8 (3.5-5.0) g/dL Lipase 20 (8-78) U/L <AURE Campos - Last Filed: 01/01/23 19:37> Lab Results 01/01/23 01/01/23 Range/Units 21:30 21:30 WBC 9.2 (4.8-10.8) X10*3/uL RBC 4.63 (4.60-5.80) X10*6/uL Hgb 13.8 L (14.0-18.0) g/dl Hct 40.9 L (42.0-52.0) % MCV 88.3 (80.0-98.0) fL MCH 29.8 (27.0-33.0) pg MCHC 33.7 (31.0-36.0) g/dl RDW 12.5 (11.0-16.0) % Plt Count 243 (160-400) X10*3/uL MPV 10.0 (9.4-12.4) fL Immature Gran % (Auto) 0.1 (0.0-0.4) % Neut % (Auto) 66.6 (45-73) % Lymph % (Auto) 26.7 (20-40) % [place] % (Auto) 6.0 (2-11) % Eos % (Auto) 0.4 (0-4) % Baso % (Auto) 0.2 (0-2) % Lymph # (Auto) 2.5 (1.2-4.9) X10*3/uL [place] # (Auto) 0.6 (0.1-1.2) X10*3/uL Eos # (Auto) 0.0 (0.0-0.4) X10*3/uL Baso # (Auto) 0.0 (0.0-0.2) X10*3/uL Abs Immat Gran (auto) 0.01 (0.00-0.03) X10*3/uL Absolute Neuts (auto) 6.1 (2.0-8.3) x10*3/uL Absolute Nucleated RBC 0.000 (0.0-0.012) X10*3/uL Nucleated RBC % (auto) 0.0 (0.0-0.2) /100WBC Sodium 142 (135-145) mmol/L Potassium 4.0 (3.3-5.1) mmol/L Chloride 107 (96-108) mmol/L Carbon Dioxide 27 (22-29) mmol/L Anion Gap 12 (12-20) BUN 18 H (9-16) mg/dL Creatinine 1.01 (0.5-1.4) mg/dL Estim Creat Clear Calc 107.9 Estimated GFR > 60 Random Glucose 98 (60-115) mg/dL Calcium 10.0 (8.4-10.2) mg/dL Total Bilirubin 0.9 (0.0-1.0) mg/dL Direct Bilirubin 0.3 (0.0-0.5) mg/dL AST 21 (5-37) U/L ALT 13 (0-40) U/L Alkaline Phosphatase 61 (39-117) U/L Total Protein 7.1 (6.5-8.0) g/dL Albumin 4.8 (3.5-5.0) g/dL Lipase 20 (8-78) U/L <Bear Ramirez - Last Filed: 01/01/23 23:48> Independent Interpretation I performed an independent interpretation of an: Plain X-Ray (No fecal impaction) <Bear Ramirez - Last Filed: 01/01/23 23:48> Discharge Plan Discharge Clinical Impression: Internal hemorrhoid <AURE Campos - Last Filed: 01/01/23 19:37> Patient Disposition: Home, Self-Care <AURE Campos - Last Filed: 01/01/23 19:37> Instructions: Hemorrhoids (ED) <AURE Campos - Last Filed: 01/01/23 19:37> Additional Instructions: Use Anusol suppository twice daily for the next 5 days. You should also use MiraLax every night for the next 2 weeks to prevent straining while using the bathroom You may also lemon picker a Sitz bath with Epsom salt to soak in daily Follow-up with your primary doctor <AURE Campos - Last Filed: 01/01/23 19:37> Prescriptions: New polyethylene glycol 3350 [Miralax] 17 gram/dose powder 17 g PO DAILY PRN (Reason: constipation) Qty: 238 0RF hydrocortisone acetate [Anusol-HC] 25 mg suppository 25 mg CO BID 5 Days Qty: 12 0RF No Action tamsulosin [Flomax] 0.4 mg capsule 0.4 mg PO DAILY Qty: 7 0RF ondansetron 4 mg tablet,disintegrating 4 mg PO Q6-8H PRN (Reason: nausea and vomiting) Qty: 7 0RF oxycodone 5 mg tablet 5 mg PO Q6H PRN (Reason: Moderate Pain (Scale Score 5-6)) Qty: 20 0RF Rx Instructions: Partial Fill upon patient request. tamsulosin [Flomax] 0.4 mg capsule 0.4 mg PO BEDTIME Qty: 4 0RF prednisone 20 mg tablet 20 mg PO DAILY 4 Days Qty: 4 0RF <AURE Campos - Last Filed: 01/01/23 19:37>
[2023-01-01 21:35] LABS: MANUAL DIFF FLAG NO
[2023-01-01 21:37] LABS: Basophils Percent Auto 0.2 % (0-2); Eosinophils Percent Auto 0.4 % (0-4); Hematocrit 40.9 % (42.0-52.0); Hemoglobin 13.8 g/dl (14.0-18.0); Imm Gran Abs Auto 0.01 X10*3/uL (0.00-0.03); Imm Gran Pct Auto 0.1 % (0.0-0.4); Lymphocytes Absolute Auto 2.5 X10*3/uL (1.2-4.9); Lymphocytes Percent Auto 26.7 % (20-40); Mean Corpuscular HGB Conc 33.7 g/dl (31.0-36.0); Mean Corpuscular Hemoglobin 29.8 pg (27.0-33.0); Mean Corpuscular Volume 88.3 fL (80.0-98.0); Monocytes Absolute Auto 0.6 X10*3/uL (0.1-1.2); Neutrophils Absolute Auto 6.1 x10*3/uL (2.0-8.3); Neutrophils Percent Auto 66.6 % (45-73); Platelet Count 243 X10*3/uL (160-400); Red Blood Count 4.63 X10*6/uL (4.60-5.80); Red Cell Distribution Width 12.5 % (11.0-16.0); White Blood Count 9.2 X10*3/uL (4.8-10.8)
[2023-01-01 21:50] VITALS: BP 114/65; PULSE 74; RESP 16; TEMP 35.6; O2SAT 99
[2023-01-01 21:55] LABS: Alanine Aminotransferase 13 U/L (0-40); Albumin Level 4.8 g/dL (3.5-5.0); Alkaline Phosphatase 61 U/L (39-117); Anion Gap 12 (12-20); Aspartate Amino Transferase 21 U/L (5-37); Bilirubin Direct 0.3 mg/dL (0.0-0.5); Bilirubin Total 0.9 mg/dL (0.0-1.0); Blood Urea Nitrogen 18 mg/dL (9-16); Carbon Dioxide 27 mmol/L (22-29); Chloride 107 mmol/L (96-108); Creatinine Clr Calc Pharmacy 107.9; Estimated Glomerular Filt Rate > 60; Glucose Random 98 mg/dL (60-115); Lipase 20 U/L (8-78); Sodium 142 mmol/L (135-145); Total Protein 7.1 g/dL (6.5-8.0)
[2023-01-01 23:20] VITALS: BP 111/65; PULSE 60; RESP 16; TEMP 36.6; O2SAT 98
--- NOTE | 2023-01-01 23:21 | MHC.EDTECH ---
THIS PCT ASSUMED CARE OF PT AT 2300 ,VITALS SIGN TAKEN .
== END 2023-01-02 00:07 | disposition home or self-care (01) ==
PROVIDERS: Physician Assistant; Emergency Provider Emergency Medicine
DX: K64.8 Other hemorrhoids (principal); K62.5 Hemorrhage of anus and rectum; F17.200 Nicotine dependence, unspecified, uncomplicated; F12.90 Cannabis use, unspecified, uncomplicated; Z79.899 Other long term (current) drug therapy
CPT/HCPCS: 36415; 74018; 80048; 80076; 83690; 85025; 99283; 99284

== ENCOUNTER 2023-01-25 23:36 | Emergency (ER) | payer MEDICAID, SELFPAY ==
--- NOTE | ~2023-01-25 | US_ITS ---
EXAMINATION: US SCROTUM CLINICAL INFORMATION: Left testicle pain for one day. COMPARISON: None available. TECHNIQUE: A sonogram of the scrotum was performed assessing hawthorne-scale appearance and color Doppler flow. Spectral Doppler analysis of the arterial and venous flow were performed in the testes bilaterally. FINDINGS: RIGHT: Right testicle measures 4.9 x 2.1 x 2.7 cm, volume 15 mL. No focal testicular parenchymal lesions are visualized. Spectral Doppler analysis of the arterial and venous flow is normal in the right testis. Right epididymal head is normal in size. No right hydrocele or varicocele is seen. Right epididymal Doppler flow is normal. LEFT: Left testicle measures 4.8 x 1.9 x 3.9 cm, volume 15 mL. No focal testicular parenchymal lesions are visualized. Spectral Doppler analysis of the arterial and venous flow is normal in the left testis. Left epididymal head is normal in size. No left hydrocele or varicocele is seen. Left epididymal Doppler flow is normal. US/US scrotum doppler IMPRESSION: No evidence of testicular torsion, epididymitis, or orchitis. Unremarkable exam.
--- NOTE | ~2023-01-25 | US_ITS ---
EXAMINATION: US SCROTUM CLINICAL INFORMATION: Left testicle pain for one day. COMPARISON: None available. TECHNIQUE: A sonogram of the scrotum was performed assessing hawthorne-scale appearance and color Doppler flow. Spectral Doppler analysis of the arterial and venous flow were performed in the testes bilaterally. FINDINGS: RIGHT: Right testicle measures 4.9 x 2.1 x 2.7 cm, volume 15 mL. No focal testicular parenchymal lesions are visualized. Spectral Doppler analysis of the arterial and venous flow is normal in the right testis. Right epididymal head is normal in size. No right hydrocele or varicocele is seen. Right epididymal Doppler flow is normal. LEFT: Left testicle measures 4.8 x 1.9 x 3.9 cm, volume 15 mL. No focal testicular parenchymal lesions are visualized. Spectral Doppler analysis of the arterial and venous flow is normal in the left testis. Left epididymal head is normal in size. No left hydrocele or varicocele is seen. Left epididymal Doppler flow is normal. US/US scrotum IMPRESSION: No evidence of testicular torsion, epididymitis, or orchitis. Unremarkable exam.
--- NOTE | ~2023-01-25 | CT_ITS ---
EXAMINATION: CT ABDOMEN AND PELVIS WITHOUT CONTRAST CLINICAL INFORMATION: Left flank/testicular pain. COMPARISON: 05.13.2022. TECHNIQUE: Multidetector volumetric imaging was performed from the superior aspect of the liver through the pubic symphysis. Sagittal and coronal reformatted images were obtained on the technologist's workstation. This CT examination was performed using dose optimization techniques as appropriate, variously including the following: *Automated exposure control *Adjustment of mA and/or kV according to patient size (this includes techniques or standardized protocols for targeted exams where dose is matched to indication/reason for exam; i.e. extremities or head) *Use of iterative reconstruction technique DLP: 384 mGy-cm FINDINGS: LUNG BASES: The visualized lung bases are unremarkable. LIVER, GALLBLADDER, AND BILIARY TREE: The liver is normal in size, shape, and attenuation. No focal hepatic lesion or biliary ductal dilatation is present. The gallbladder is unremarkable with no evidence of radiopaque gallstones, gallbladder wall thickening, or obvious pericholecystic inflammatory changes. PANCREAS: Unremarkable. SPLEEN: Unremarkable. ADRENAL GLANDS: Unremarkable. KIDNEYS AND URETERS: There is a 2 mm calculus in the distal left ureter approximately 5 cm from the ureterovesical junction with minimal associated periureteral fat stranding and mild hydroureter, without significant hydronephrosis. Multiple punctate nonobstructive intrarenal calculi redemonstrated. BLADDER: Unremarkable. GASTROINTESTINAL TRACT: The small and large bowel are unremarkable. The appendix is unremarkable. ABDOMINAL WALL: No significant hernia is appreciated. LYMPH NODES: Normal. VASCULAR: Unremarkable. PELVIC VISCERA: Unremarkable. OSSEOUS STRUCTURES: Unremarkable. CT/CT abdomen pelvis wo IV con IMPRESSION: * There is a 2 mm calculus in the distal LEFT ureter approximately 5 cm from the ureterovesical junction with associated mild hydroureter and periureteral fat stranding. * Bilateral nonobstructive intrarenal calculi.
[2023-01-25 23:40] VITALS: BP 107/71; PULSE 64; RESP 18; TEMP 36.5; O2SAT 100; BMI 20.8
[2023-01-26 01:18] VITALS: BP 100/68; PULSE 71; RESP 18; O2SAT 98
--- NOTE | 2023-01-26 01:18 | ED_ITS ---
HPI - Male Genitourinary General Chief complaint: Urogenital-Male Stated complaint: Pain left testicle, burning in lower abdomen Time Seen by Provider: 01/26/23 01:11 Source: patient Mode of arrival: ambulatory Limitations: no limitations History of Present Illness HPI Narrative: 27-year-old male came in for evaluation of left testicular/left flank pain. Pain started since 10-12 hours ago in the left testicle then pain started to radiate to the left lower abdomen and left flank area, patient had history of kidney stones in the right side. Patient declined dysuria, hematuria, or penile discharge. Patient is sexually active with 1 partner stated that STD is not likely. Declined any trauma to the genital area. Related Data Previous Rx's Medication Instructions Recorded prednisone 20 mg tablet 20 mg PO DAILY 4 days #4 tabs 06/09/21 tamsulosin 0.4 mg capsule (Flomax) 0.4 mg PO BEDTIME #4 caps 06/09/21 ondansetron 4 mg disintegrating 4 mg PO Q6-8H PRN nausea and 05/13/22 tablet vomiting #7 tabs oxycodone 5 mg tablet 5 mg PO Q6H PRN Moderate Pain 05/13/22 (Scale Score 5-6) #20 tabs tamsulosin 0.4 mg capsule (Flomax) 0.4 mg PO DAILY #7 caps 05/13/22 hydrocortisone acetate 25 mg 25 mg PA BID 5 days #12 ea 01/01/23 rectal suppository (Anusol-HC) polyethylene glycol 3350 17 17 g PO DAILY PRN constipation 01/01/23 gram/dose oral powder (Miralax) #238 grams cefuroxime axetil 250 mg tablet 250 mg PO BID #14 tabs 01/26/23 Allergies Allergy/AdvReac Type Severity Reaction Status Date / Time No Known Allergies Allergy Verified 01/25/23 23:43 Review of Systems Review of Systems: All other systems are reviewed and are negative Constitutional: Reports as per HPI and Reports no additional constitutional complaints Eyes: Reports as per HPI and Reports no additional eye complaints Reports system reviewed and no additional complaints, except as documented Cardiovascular: Reports as per HPI and Reports no additional cardiovascular complaints Respiratory: Reports as per HPI and Reports no additional respiratory complaints Gastrointestinal: Reports as per HPI and Reports no additional gastrointestinal complaints Genitourinary: Reports no additional female genitourinary complaints Musculoskeletal: Reports no additional musculoskeletal complaints Skin/Breast: Reports system reviewed and no additional complaints, except as docu Psychiatric: Reports no additional psychiatric complaints Endocrine: Reports no additional endocrine complaints Hematologic/Lymphatic: Reports no additional hematologic/lymphatic complaints Allergic/Immunologic: Reports no additional allergic/immunologic complaints Reports system reviewed and no additional complaints, except as documented and Reports Abnormal speech present [facility] Past Medical History Medical History No known health problems Social History Social History Patient Tobacco Use Status: Current everyday Tobacco user Substance Use Type: Marijuana Advance Directives: No Advance Directives Information Provided: Yes Physical Exam Vital Signs: Vital Signs: Last Vital Signs Temp 97.7 F 01/26/23 02:00 Pulse 60 01/26/23 02:00 Resp 16 01/26/23 02:00 BP 106/57 L 01/26/23 02:00 Pulse Ox 98 01/26/23 02:00 O2 Del Method Room Air 01/26/23 02:00 BMI result Body Mass Index 20.8 Vital signs have been reviewed as appeared to be correct. Blood pressure no rmal. Heart rate normal. Respiration rate normal. Temperature normal. Oxygen saturation normal. Appearance: Alert. Oriented X3. No acute distress. Head: Normal external exam. Normocephalic. Atraumatic. No Guerrero signs noted. No raccoon eyes noted Eyes: PERRLA. EOMI. Conjunctiva and sclera normal. Eyelids normal. ENT: TM's Normal. Pharynx normal. Uvula midline. Moist mucous membranes. No trismus noted. No drooling noted. No muffled voice noted. Neck: Normal inspection. Neck supple. FROM. No adenopathy. Thyroid Normal. No meningeal signs. No neck mass noted. CVS: Normal heart rate and rhythm. Heart sound normal. No murmurs noted. Pulses normal throughout. Respiratory: No respiratory distress. Painless inspiration. Breath sounds normal. No wheezes/rales/rhonchi noted. Chest nontender. No accessory muscle usage noted or decreased air movement noted. Abdomen: Soft and nontender. Bowel sounds normal in all 4 quadrants. No distention noted. No organomegaly noted. No visible injury noted. exam: No distinct liver swelling or tenderness or redness, intact cremasteric reflex on both sides. Back: No CVA tenderness. Full range of motion noted. Skin: Skin warm and dry. Normal skin color. Normal skin turgor. No rashes/lesions/lacerations noted. Extremities: No lower extremity edema. Extremities exhibit normal range of motion. Extremities nontender. Neuro: Oriented X 3. Cranial nerve exam: II-XII are grossly intact No motor deficit. No sensory deficit. Reflexes normal. Course Course Course Narrative: 27-year-old came in with left testicular pain workup revealed patient has 2 mm left ureteric stone causing patient's symptoms, patient now is comfortable no abdominal pain or colicky pain, will discharge the patient to follow up with Urology, patient also found to have elevated LFTs, patient declined drinking alcohol, or exposure to hepatitis infection. Patient was instructed to follow up with PCP, patient was instructed to avoid drinking alcohol or taking Tylenol until sees his PCP. Will start patient on cefuroxime for a mild UTI. Medical Decision Making Differential Diagnosis Differential Diagnoses: The differential diagnosis associated with the presentation includes (Left renal colic, testicular torsion, epididymitis, UTI, electrolyte abnormalities, severe anemia, STDs, transaminitis.) Admission/Observation Consideration of admission/observation: Escalation of care including admission/observation considered Lab Data MDM Lab Attestation statement: I reviewed the patient's lab results. 01/26/23 01:26 01/26/23 01:26 Labs: Lab Results 01/26/23 01/26/23 01/26/23 Range/Units 01:26 01:26 04:25 WBC 15.0 H (4.8-10.8) X10*3/uL RBC 4.69 (4.60-5.80) X10*6/uL Hgb 13.8 L (14.0-18.0) g/dl Hct 41.4 L (42.0-52.0) % MCV 88.3 (80.0-98.0) fL MCH 29.4 (27.0-33.0) pg MCHC 33.3 (31.0-36.0) g/dl RDW 12.6 (11.0-16.0) % Plt Count 252 (160-400) X10*3/uL MPV 10.0 (9.4-12.4) fL Immature Gran % (Auto) 0.3 (0.0-0.4) % Neut % (Auto) 75.9 H (45-73) % Lymph % (Auto) 16.2 L (20-40) % [place] % (Auto) 6.7 (2-11) % Eos % (Auto) 0.8 (0-4) % Baso % (Auto) 0.1 (0-2) % Lymph # (Auto) 2.4 (1.2-4.9) X10*3/uL [place] # (Auto) 1.0 (0.1-1.2) X10*3/uL Eos # (Auto) 0.1 (0.0-0.4) X10*3/uL Baso # (Auto) 0.0 (0.0-0.2) X10*3/uL Abs Immat Gran (auto) 0.05 H (0.00-0.03) X10*3/uL Absolute Neuts (auto) 11.4 H (2.0-8.3) x10*3/uL Absolute Nucleated RBC 0.000 (0.0-0.012) X10*3/uL Nucleated RBC % (auto) 0.0 (0.0-0.2) /100WBC Sodium 140 (135-145) mmol/L Potassium 4.0 (3.3-5.1) mmol/L Chloride 105 (96-108) mmol/L Carbon Dioxide 25 (22-29) mmol/L Anion Gap 14 (12-20) BUN 13 (9-16) mg/dL Creatinine 1.00 (0.5-1.4) mg/dL Estim Creat Clear Calc 98.6 Estimated GFR > 60 Random Glucose 91 (60-115) mg/dL Calcium 9.9 (8.4-10.2) mg/dL Total Bilirubin 0.3 (0.0-1.0) mg/dL AST 96 H (5-37) U/L ALT 124 H (0-40) U/L Alkaline Phosphatase 54 (39-117) U/L Total Protein 6.9 (6.5-8.0) g/dL Albumin 4.5 (3.5-5.0) g/dL Urine Color Yellow Urine Appearance Cloudy Urine pH 6.0 (5.0-9.0) Ur Specific [place] 1.020 (1.005-1.025) Urine Protein 30 (1+) H (Neg-Trace) mg/dL Urine Glucose (UA) Negative (Negative) mg/dL Urine Ketones Trace (Negative) mg/dL Urine Blood Large (3+) H (Negative) Urine Nitrite Negative (Negative) Ur Leukocyte Esterase Small (1+) H (Negative) Urine RBC >20 H (0-2) /HPF Urine WBC 6-10 H (0-5) /HPF Ur Squamous Epith Cells 0-2 (0-2) /HPF Urine Bacteria None Seen (None Seen) Hyaline Casts 0-2 (0-2) /LPF Independent Interpretation I performed an independent interpretation of an: CT Scan (CT abdomen and pelvis: 2 mm calculus in the distal left ureter.) Radiology Impression Discussion of test interpretation with radiology: I have reviewed the radiologist's reading. Discharge Plan Discharge Clinical Impression: Renal colic on left side, Elevated transaminase level, Urinary tract infection Patient Disposition: Home, Self-Care Instructions: Renal Colic (ED) Additional Instructions: Your liver enzymes is elevated it is important to follow-up with your primary doctor to get workup on your liver as an outpatient. Prescriptions: New cefuroxime axetil 250 mg tablet 250 mg PO BID Qty: 14 0RF No Action tamsulosin [Flomax] 0.4 mg capsule 0.4 mg PO DAILY Qty: 7 0RF ondansetron 4 mg tablet,disintegrating 4 mg PO Q6-8H PRN (Reason: nausea and vomiting) Qty: 7 0RF oxycodone 5 mg tablet 5 mg PO Q6H PRN (Reason: Moderate Pain (Scale Score 5-6)) Qty: 20 0RF Rx Instructions: Partial Fill upon patient request. tamsulosin [Flomax] 0.4 mg capsule 0.4 mg PO BEDTIME Qty: 4 0RF prednisone 20 mg tablet 20 mg PO DAILY 4 Days Qty: 4 0RF polyethylene glycol 3350 [Miralax] 17 gram/dose powder 17 g PO DAILY PRN (Reason: constipation) Qty: 238 0RF hydrocortisone acetate [Anusol-HC] 25 mg suppository 25 mg PA BID 5 Days Qty: 12 0RF Referrals: Physician,Unknown J [Primary Care Provider] -
[2023-01-26 01:20] VITALS: BP 100/68; PULSE 64; RESP 16; TEMP 36.6; O2SAT 98
--- NOTE | 2023-01-26 01:24 | PC.NURSE ---
Cremasteric reflex positive
[2023-01-26 01:31] LABS: MANUAL DIFF FLAG NO
--- NOTE | 2023-01-26 01:32 | MHC.EDTECH ---
ctng urine collected ,blood drawn and sent to lab ,vitals sign taken .
[2023-01-26 01:33] LABS: Basophils Percent Auto 0.1 % (0-2); Eosinophils Absolute Auto 0.1 X10*3/uL (0.0-0.4); Eosinophils Percent Auto 0.8 % (0-4); Hematocrit 41.4 % (42.0-52.0); Hemoglobin 13.8 g/dl (14.0-18.0); Imm Gran Abs Auto 0.05 X10*3/uL (0.00-0.03); Imm Gran Pct Auto 0.3 % (0.0-0.4); Lymphocytes Absolute Auto 2.4 X10*3/uL (1.2-4.9); Lymphocytes Percent Auto 16.2 % (20-40); Mean Corpuscular HGB Conc 33.3 g/dl (31.0-36.0); Mean Corpuscular Hemoglobin 29.4 pg (27.0-33.0); Mean Corpuscular Volume 88.3 fL (80.0-98.0); Monocytes Percent Auto 6.7 % (2-11); Neutrophils Absolute Auto 11.4 x10*3/uL (2.0-8.3); Neutrophils Percent Auto 75.9 % (45-73); Platelet Count 252 X10*3/uL (160-400); Red Blood Count 4.69 X10*6/uL (4.60-5.80); Red Cell Distribution Width 12.6 % (11.0-16.0)
[2023-01-26 01:50] LABS: Alanine Aminotransferase 124 U/L (0-40); Albumin Level 4.5 g/dL (3.5-5.0); Alkaline Phosphatase 54 U/L (39-117); Anion Gap 14 (12-20); Aspartate Amino Transferase 96 U/L (5-37); Bilirubin Total 0.3 mg/dL (0.0-1.0); Blood Urea Nitrogen 13 mg/dL (9-16); Calcium 9.9 mg/dL (8.4-10.2); Carbon Dioxide 25 mmol/L (22-29); Chloride 105 mmol/L (96-108); Creatinine Clr Calc Pharmacy 98.6; Estimated Glomerular Filt Rate > 60; Glucose Random 91 mg/dL (60-115); Sodium 140 mmol/L (135-145); Total Protein 6.9 g/dL (6.5-8.0)
[2023-01-26 02:00] VITALS: BP 106/57; PULSE 60; RESP 16; TEMP 36.5; O2SAT 98
--- NOTE | 2023-01-26 02:27 | PC.NURSE ---
Pt lying on stretcher, using cell phone, no acute distress at this time. Pending imaging results.
[2023-01-26 04:33] LABS: Appearance Urine Cloudy; Color Urine Yellow; Glucose Urine UA Negative (Negative); Leukocyte Esterase Urine Small (1+) (Negative); Nitrite Urine Negative (Negative); UMIC TRIGGER UACC YES; Urine Blood Large (3+) (Negative); Urine Ketones Trace mg/dL (Negative); Urine Protein 30 (1+) mg/dL (Neg-Trace)
[2023-01-26 04:36] LABS: Bacteria Urine None Seen (None Seen); Hyaline Casts Urine 0-2 /LPF (0-2); RBC Urine >20 /HPF (0-2); Squamous Epithelial Cell Urine 0-2 /HPF (0-2); UACC Culture Trigger YES
[2023-01-26 06:25] LABS: CT PCR NOT DETECTED (Not Detect.); NG PCR NOT DETECTED (Not Detect.)
[2023-01-27 04:30] LABS: HBS Num1 1.47 mIU/mL (0-7.99); HBc Num1 0.07 S/CO (0.00-0.79); HBsAGNum1 0.32 S/CO (0.00-0.99); Hepatitis A Antibody IgM 0.25 Index (0-0.79); Hepatitis B Core Antibody Nonreactive (Nonreactive); Hepatitis B Surface Antigen Negative (Negative); ~HepC Num1 0.06 S/CO (0.00-0.79); ~Hepatitis A Antibody IgM Nonreactive (Nonreactive); ~Hepatitis B Surface Antibody NONREACTIVE (Nonreactive); ~Hepatitis C Antibody Nonreactive (Nonreactive)
== END 2023-01-26 05:10 | disposition home or self-care (01) ==
PROVIDERS: Physician Assistant; Emergency Provider Emergency Medicine
DX: N39.0 Urinary tract infection, site not specified (principal); N23 Unspecified renal colic; R74.01 Elevation of levels of liver transaminase levels; N50.812 Left testicular pain; Z11.8 Encounter for screening for other infectious and parasitic diseases
CPT/HCPCS: 0353U; 36415; 74176; 76870; 80053; 81001; 85025; 86704; 86706; 86709; 86803; 87086; 87340; 93975; 99284

== ENCOUNTER 2023-01-27 06:30 | Emergency (ER) | payer MEDICAID, SELFPAY ==
[2023-01-27 06:53] VITALS: BP 120/73; PULSE 57; RESP 18; TEMP 36.6; O2SAT 98; BMI 20.8
--- NOTE | 2023-01-27 07:09 | ED.MALEGU ---
HPI - Male Genitourinary General Chief complaint: Urogenital-Male Stated complaint: Abdominal pain Time Seen by Provider: 01/27/23 07:02 Source: patient Mode of arrival: ambulatory Limitations: no limitations History of Present Illness HPI Narrative: 27-year-old male who presents emergency department for evaluation of left lower groin pain. The patient was see yesterday 01/26/2023 at 01:11 hours and diagnosed with a left 2 mm ureteral calculus approximately 5 cm from that UVJ with associated hydroureter and periureteral fat stranding with bilateral nonobstructing intrarenal calculi. Patient also had testicular ultrasound which revealed no epididymis, orchitis or torsion. Patient was discharged with prescriptions for cefuroxime 250 mg b.i.d. x7 days. Patient states that the pain became severe to the point where he could not tolerate it. He had associated nausea with no vomiting. Related Data Previous Rx's Medication Instructions Recorded prednisone 20 mg tablet 20 mg PO DAILY 4 days #4 tabs 06/09/21 tamsulosin 0.4 mg capsule (Flomax) 0.4 mg PO BEDTIME #4 caps 06/09/21 ondansetron 4 mg disintegrating 4 mg PO Q6-8H PRN nausea and 05/13/22 tablet vomiting #7 tabs oxycodone 5 mg tablet 5 mg PO Q6H PRN Moderate Pain 05/13/22 (Scale Score 5-6) #20 tabs tamsulosin 0.4 mg capsule (Flomax) 0.4 mg PO DAILY #7 caps 05/13/22 hydrocortisone acetate 25 mg 25 mg ND BID 5 days #12 ea 01/01/23 rectal suppository (Anusol-HC) polyethylene glycol 3350 17 17 g PO DAILY PRN constipation 01/01/23 gram/dose oral powder (Miralax) #238 grams cefuroxime axetil 250 mg tablet 250 mg PO BID #14 tabs 01/26/23 ketorolac 10 mg tablet 10 mg PO Q6H PRN pain 5 days #20 01/27/23 tabs oxycodone 5 mg tablet 5 mg PO Q4H PRN pain #14 tabs 01/27/23 tamsulosin 0.4 mg capsule (Flomax) 0.4 mg PO DAILY #30 caps 01/27/23 Allergies Allergy/AdvReac Type Severity Reaction Status Date / Time No Known Allergies Allergy Verified 01/25/23 23:43 [facility] Past Medical History [facility] Narrative: Past medical history: Kidney stones. Past surgical history: None. Social history: He does smoke cigarettes. He drinks alcohol but infrequently. He smokes marijuana daily. Medical History No known health problems Social History Social History Alcohol intake: never Patient Tobacco Use Status: Current everyday Tobacco user Use of substances other than those prescribed or required for medical reasons: Yes Substance Use Type: Marijuana Substance Use Frequency: Daily Advance Directives: No Physical Exam Vital Signs: Vital Signs: Last Vital Signs Temp 97.8 F 01/27/23 06:53 Pulse 66 01/27/23 10:00 Resp 15 01/27/23 10:00 BP 101/48 L 01/27/23 10:00 Pulse Ox 96 01/27/23 10:00 O2 Del Method Room Air 01/27/23 10:00 BMI result Body Mass Index 20.8 Const: Other: Awake, alert, male patient, appears to be in distress secondary to his left-sided abdominal pain, answers all questions appropriately HEENT: Head: Yes normal to inspection, Yes normocephalic and Yes atraumatic Ears: external ears normal General nose exam: Normal external nose present Face and sinus: Yes normal facial exam Mouth: Normal oral and palatal mucosa present Throat: Yes posterior oropharynx normal Eyes: General: appearance normal, both eyes and all related structures Pupils: Equal, round and reactive pupils present Neck: Neck: Yes normal visual inspection, Yes no lymphadenopathy, Yes trachea midline and Yes supple Chest: Chest palpation & inspection: normal inspection of the chest and normal palpation of entire chest wall Resp: Effort & Inspection: normal respiratory effort and able to speak in complete sentences Auscultation: clear to auscultation bilaterally Cardio: Rate: regular rate Rhythm: regular rhythm Heart sounds: S1 normal heart sound present, S2 normal heart sound present and no murmurs GI: Inspection: Yes normal to inspection Palpation (GI): Soft to palpation, Tenderness to palpation present (GI) in the LLQ (Moderate) and no guarding Auscultation: normal bowel sounds : General: Yes CVA tenderness on the left (Moderate) Back/Spine/Pelvis: Back: CVA tenderness Skin: General skin exam: no rashes or lesions noted Neuro: Cranial nerves: Yes CN's II-XII intact bilaterally and Yes Equal, round and reactive pupils present Cognition (Neuro): normal cognition Motor exam (neuro): 5/5 motor strength present throughout Extrem: General: Yes normal to inspection Psych: Appearance: grossly normal Speech and movement: Normal speech and movement present Affect: normal affect Attitude: cooperative Thought process: Normal thought process present Thought content: Normal thought content present Medications Administered Discontinued Medications Generic Name Dose Route Start Last Admin Trade Name Freq PRN Reason Stop Dose Admin Sodium Chloride 1,000 mls @ 999 mls/hr 01/27/23 07:08 01/27/23 07:45 Ns IV 01/27/23 08:08 Infused .Q1H1M STA Infusion Ketorolac Tromethamine 15 mg 01/27/23 07:08 01/27/23 07:12 Ketorolac Tromethamine 15 Mg/Ml Vial IVPUSH 01/27/23 07:09 15 mg ONCE STA Administration Ondansetron HCl 4 mg 01/27/23 07:08 01/27/23 07:12 Ondansetron Hcl 4 Mg/2 Ml Vial IVPUSH 01/27/23 07:09 4 mg ONCE ONE Administration Medical Decision Making Medical Decision Making MDM Narrative: 27-year-old male who presents emergency department for evaluation of left flank and left groin pain. The patient was seen 1 day prior and diagnosed with aleft 2 mm ureteral calculus approximately 5 cm from that UVJ with associated hydroureter and periureteral fat stranding with bilateral nonobstructing intrarenal calculi. Is also diagnosed with urinary tract infection and started on cefuroxime 250 mg b.i.d. x7 days. Patient's pain woke him up this morning. He states that the pain is 10/10. Pain is constant. He had associated nausea with no vomiting. He took ibuprofen with no relief his pain. I did order laboratory evaluation includes CBC and CMP. Patient was ordered to get Toradol 15 mg IV and Zofran 4 mg IV. Was also treated with normal saline x1 L. 1043: My interpretation patient's laboratory evaluation is as follows: WBC elevated 12,600. BUN and creatinine were normal. LFTs were elevated but similarly elevated yesterday The patient feels significantly better after the above treatment. The patient will be discharged home with prescriptions for Toradol 10 mg 3 times a day as needed for pain, he was also advised to take Tylenol and for pain not relieved by these 2 medications she was prescribed oxycodone. Patient was also started on Flomax 0.4 mg once a day for 2 weeks. He was given the name of our urologist advised follow-up for re-evaluation. Lab Data 01/27/23 08:03 01/27/23 08:03 Labs: Lab Results 01/27/23 01/27/23 Range/Units 08:03 08:03 WBC 12.6 H (4.8-10.8) X10*3/uL RBC 4.33 L (4.60-5.80) X10*6/uL Hgb 13.0 L (14.0-18.0) g/dl Hct 39.5 L (42.0-52.0) % MCV 91.2 (80.0-98.0) fL MCH 30.0 (27.0-33.0) pg MCHC 32.9 (31.0-36.0) g/dl RDW 12.6 (11.0-16.0) % Plt Count 223 (160-400) X10*3/uL MPV 9.9 (9.4-12.4) fL Immature Gran % (Auto) 0.7 H (0.0-0.4) % Neut % (Auto) 79.7 H (45-73) % Lymph % (Auto) 12.3 L (20-40) % [place] % (Auto) 6.7 (2-11) % Eos % (Auto) 0.4 (0-4) % Baso % (Auto) 0.2 (0-2) % Lymph # (Auto) 1.6 (1.2-4.9) X10*3/uL [place] # (Auto) 0.8 (0.1-1.2) X10*3/uL Eos # (Auto) 0.1 (0.0-0.4) X10*3/uL Baso # (Auto) 0.0 (0.0-0.2) X10*3/uL Abs Immat Gran (auto) 0.09 H (0.00-0.03) X10*3/uL Absolute Neuts (auto) 10.0 H (2.0-8.3) x10*3/uL Absolute Nucleated RBC 0.000 (0.0-0.012) X10*3/uL Nucleated RBC % (auto) 0.0 (0.0-0.2) /100WBC Sodium 143 (135-145) mmol/L Potassium 4.8 (3.3-5.1) mmol/L Chloride 110 H (96-108) mmol/L Carbon Dioxide 26 (22-29) mmol/L Anion Gap 12 (12-20) BUN 16 (9-16) mg/dL Creatinine 1.02 (0.5-1.4) mg/dL Estim Creat Clear Calc 96.6 Estimated GFR > 60 Random Glucose 87 (60-115) mg/dL Calcium 9.1 D (8.4-10.2) mg/dL Total Bilirubin 0.5 (0.0-1.0) mg/dL AST 61 H (5-37) U/L ALT 90 H (0-40) U/L Alkaline Phosphatase 50 (39-117) U/L Total Protein 6.1 L (6.5-8.0) g/dL Albumin 4.1 (3.5-5.0) g/dL Discharge Plan Discharge Clinical Impression: Calculus of distal left ureter, Renal colic on left side Patient Disposition: Home, Self-Care Instructions: How to Strain Your Urine (ED), Ureteral Stones (ED) Additional Instructions: Your symptoms are consistent with your left-sided 2 mm ureteral stone. Increase your fluid intake, urinate frequently, strain your urine. Continue taking the antibiotic as prescribed yesterday Take Toradol (ketorolac) 10 mg pills, 1 pills every 6 hours as needed for pain. Take Tylenol (acetaminophen) 500 mg pills, 2 pills every 4-6 hours as needed for pain. For pain not relieved by Toradol or Tylenol take oxycodone 5 mg pills, 1 pill every 4 hours as needed for pain. Do not drive or work while taking this medication since they can cause sleepiness. Oxycodone is a narcotic medication that can be addicting. If you are concerned about addiction you can ask the pharmacist for less pills or do not get this prescription filled. Follow-up with our on-call urologist Dr. Allen in 1-2 weeks. Please return to the emergency department if your symptoms get worse or if you develop any symptoms that are concerning to you. Prescriptions: New tamsulosin [Flomax] 0.4 mg capsule 0.4 mg PO DAILY Qty: 30 0RF ketorolac 10 mg tablet 10 mg PO Q6H PRN (Reason: pain) 5 Days Qty: 20 0RF oxycodone 5 mg tablet 5 mg PO Q4H PRN (Reason: pain) Qty: 14 0RF Rx Instructions: Patient may request partial fill; Partial Fill upon patient request. No Action tamsulosin [Flomax] 0.4 mg capsule 0.4 mg PO DAILY Qty: 7 0RF ondansetron 4 mg tablet,disintegrating 4 mg PO Q6-8H PRN (Reason: nausea and vomiting) Qty: 7 0RF oxycodone 5 mg tablet 5 mg PO Q6H PRN (Reason: Moderate Pain (Scale Score 5-6)) Qty: 20 0RF Rx Instructions: Partial Fill upon patient request. tamsulosin [Flomax] 0.4 mg capsule 0.4 mg PO BEDTIME Qty: 4 0RF prednisone 20 mg tablet 20 mg PO DAILY 4 Days Qty: 4 0RF polyethylene glycol 3350 [Miralax] 17 gram/dose powder 17 g PO DAILY PRN (Reason: constipation) Qty: 238 0RF hydrocortisone acetate [Anusol-HC] 25 mg suppository 25 mg ND BID 5 Days Qty: 12 0RF cefuroxime axetil 250 mg tablet 250 mg PO BID Qty: 14 0RF Referrals: Ray Allen MD [Physician] - 2 weeks (2 mm left ureteral stone)
[2023-01-27] MEDS: Ketorolac Tromethamine 15 MG/ML VIAL IVPUSH (07:12)
[2023-01-27] MEDS: 0.9 % Sodium Chloride 1,000 ML 999 ML IV (07:12)
[2023-01-27] MEDS: ondansetron HCL 4 MG/2 ML VIAL IVPUSH (07:12)
--- NOTE | 2023-01-27 07:21 | PC.NURSE ---
iv placed and medicated per emar, having small episodes of emesis in room, given meds for nausea pending effect. pt now r side lying w fluids infusing, given small cup of water, tolerating sips at this time.
--- NOTE | 2023-01-27 07:45 | PC.NURSE ---
sts feeling some pain relief, resting at this time.
[2023-01-27 08:09] LABS: MANUAL DIFF FLAG NO
[2023-01-27 08:14] LABS: Basophils Percent Auto 0.2 % (0-2); Eosinophils Absolute Auto 0.1 X10*3/uL (0.0-0.4); Eosinophils Percent Auto 0.4 % (0-4); Hematocrit 39.5 % (42.0-52.0); Imm Gran Abs Auto 0.09 X10*3/uL (0.00-0.03); Imm Gran Pct Auto 0.7 % (0.0-0.4); Lymphocytes Absolute Auto 1.6 X10*3/uL (1.2-4.9); Lymphocytes Percent Auto 12.3 % (20-40); Mean Corpuscular HGB Conc 32.9 g/dl (31.0-36.0); Mean Corpuscular Volume 91.2 fL (80.0-98.0); Mean Platelet Volume 9.9 fL (9.4-12.4); Monocytes Absolute Auto 0.8 X10*3/uL (0.1-1.2); Monocytes Percent Auto 6.7 % (2-11); Neutrophils Percent Auto 79.7 % (45-73); Platelet Count 223 X10*3/uL (160-400); Red Blood Count 4.33 X10*6/uL (4.60-5.80); Red Cell Distribution Width 12.6 % (11.0-16.0); White Blood Count 12.6 X10*3/uL (4.8-10.8)
[2023-01-27 08:31] LABS: Alanine Aminotransferase 90 U/L (0-40); Albumin Level 4.1 g/dL (3.5-5.0); Alkaline Phosphatase 50 U/L (39-117); Anion Gap 12 (12-20); Aspartate Amino Transferase 61 U/L (5-37); Bilirubin Total 0.5 mg/dL (0.0-1.0); Blood Urea Nitrogen 16 mg/dL (9-16); Calcium 9.1 mg/dL (8.4-10.2); Carbon Dioxide 26 mmol/L (22-29); Chloride 110 mmol/L (96-108); Creatinine Clr Calc Pharmacy 96.6; Estimated Glomerular Filt Rate > 60; Glucose Random 87 mg/dL (60-115); Potassium 4.8 mmol/L (3.3-5.1); Sodium 143 mmol/L (135-145); Total Protein 6.1 g/dL (6.5-8.0)
[2023-01-27 10:00] VITALS: BP 101/48; PULSE 66; RESP 15; O2SAT 96
== END 2023-01-27 11:07 | disposition home or self-care (01) ==
PROVIDERS: Emergency Provider Emergency Medicine Emergency Medical Services
DX: N20.2 Calculus of kidney with calculus of ureter (principal); N23 Unspecified renal colic
CPT/HCPCS: 36415; 80053; 85025; 96361; 96374; 96375; 99284; 99285; J1885; J2405

== ENCOUNTER 2023-02-11 10:14 | Emergency (ER) | payer MEDICAID, SELFPAY ==
--- NOTE | ~2023-02-11 | US_ITS ---
EXAMINATION: US RETROPERITONEAL LIMITED (RENAL ONLY) CLINICAL INFORMATION: Recent left ureteral lithiasis, new pain COMPARISON: CT abdomen from 01/26/2023 TECHNIQUE: Grayscale and color images of the bilateral kidneys and bladder were obtained FINDINGS: RIGHT KIDNEY: 10.3 x 6.0 x 5.3 cm (SAG x AP x TRV). The kidney is normal in size, contour, and echogenicity. Renal cortical thickness is normal. No calculi or focal parenchymal lesions. No hydronephrosis. LEFT KIDNEY: 10.5 x 6.5 x 5.3 cm (SAG x AP x TRV). The kidney is normal in size, contour, and echogenicity. Renal cortical thickness is normal. No focal parenchymal lesions. Mild left-sided hydronephrosis with a 5 mm calculus noted in the left renal lower pole. BLADDER: Unable to evaluate secondary to lack of volume. US/US renal BI IMPRESSION: 1. Mild left-sided hydronephrosis with a 5 mm calculus noted in the left renal lower pole. 2. No right-sided nephrolithiasis or hydronephrosis. 3. Urinary bladder not well evaluated secondary to lack of volume.
[2023-02-11 10:19] VITALS: BP 116/70; PULSE 72; RESP 18; TEMP 36.7; O2SAT 98; BMI 21.2
[2023-02-11 10:37] LABS: MANUAL DIFF FLAG NO
[2023-02-11 10:43] LABS: Basophils Percent Auto 0.3 % (0-2); Eosinophils Percent Auto 0.4 % (0-4); Hematocrit 39.7 % (42.0-52.0); Imm Gran Abs Auto 0.04 X10*3/uL (0.00-0.03); Imm Gran Pct Auto 0.4 % (0.0-0.4); Lymphocytes Absolute Auto 1.3 X10*3/uL (1.2-4.9); Lymphocytes Percent Auto 11.5 % (20-40); Mean Corpuscular HGB Conc 32.7 g/dl (31.0-36.0); Mean Corpuscular Hemoglobin 29.5 pg (27.0-33.0); Mean Corpuscular Volume 90.2 fL (80.0-98.0); Mean Platelet Volume 10.3 fL (9.4-12.4); Monocytes Absolute Auto 1.1 X10*3/uL (0.1-1.2); Monocytes Percent Auto 9.8 % (2-11); Neutrophils Absolute Auto 8.4 x10*3/uL (2.0-8.3); Neutrophils Percent Auto 77.6 % (45-73); Platelet Count 262 X10*3/uL (160-400); Red Cell Distribution Width 12.7 % (11.0-16.0); White Blood Count 10.9 X10*3/uL (4.8-10.8)
[2023-02-11 11:02] LABS: Alanine Aminotransferase 34 U/L (0-40); Albumin Level 4.3 g/dL (3.5-5.0); Alkaline Phosphatase 77 U/L (39-117); Anion Gap 14 (12-20); Aspartate Amino Transferase 39 U/L (5-37); Bilirubin Total 0.7 mg/dL (0.0-1.0); Blood Urea Nitrogen 21 mg/dL (9-16); Calcium 9.8 mg/dL (8.4-10.2); Carbon Dioxide 25 mmol/L (22-29); Chloride 107 mmol/L (96-108); Estimated Glomerular Filt Rate 43; Glucose Random 84 mg/dL (60-115); Potassium 4.5 mmol/L (3.3-5.1); Sodium 141 mmol/L (135-145); Total Protein 6.7 g/dL (6.5-8.0)
[2023-02-11] MEDS: Ketorolac Tromethamine 30 MG/ML VIAL IM (11:40)
--- NOTE | 2023-02-11 12:02 | ED.ABDPAIN ---
HPI - Abdominal Pain General Chief Complaint: Abdominal Pain Stated Complaint: abd pain , back pain Time Seen by Provider: 02/11/23 10:38 Source: patient Mode of arrival: ambulatory Limitations: no limitations History of Present Illness HPI narrative: 27-year-old male with no major medical problems, recently diagnosed kidney stone 2 mm in left UVJ presents recurrent flank/abdominal pain. The pain is severe. The pain starts in left flank pain and then can radiate to the left lower quadrant. It is not associated with nausea him a vomiting or diarrhea. She he denies any urinary frequency, urgency or dysuria. He denies fever but has had some subjective chills no rigors. Symptoms are worsened by certain movements and certain positions. They are better with rest. Patient denies any chest pain, cough or mucus production MD elicited complaint: abdominal pain Pertinent past history: kidney stones Onset (ago): day(s) (4) Pain Consistency: constant Location: L flank Severity: severe Quality: stabbing and aching Radiation: LLQ Exacerbating factors: movement Relieving factors: rest Associated symptoms: denies other symptoms Related Data Previous Rx's Medication Instructions Recorded prednisone 20 mg tablet 20 mg PO DAILY 4 days #4 tabs 06/09/21 tamsulosin 0.4 mg capsule (Flomax) 0.4 mg PO BEDTIME #4 caps 06/09/21 ondansetron 4 mg disintegrating 4 mg PO Q6-8H PRN nausea and 05/13/22 tablet vomiting #7 tabs oxycodone 5 mg tablet 5 mg PO Q6H PRN Moderate Pain 05/13/22 (Scale Score 5-6) #20 tabs tamsulosin 0.4 mg capsule (Flomax) 0.4 mg PO DAILY #7 caps 05/13/22 hydrocortisone acetate 25 mg 25 mg SD BID 5 days #12 ea 01/01/23 rectal suppository (Anusol-HC) polyethylene glycol 3350 17 17 g PO DAILY PRN constipation 01/01/23 gram/dose oral powder (Miralax) #238 grams cefuroxime axetil 250 mg tablet 250 mg PO BID #14 tabs 01/26/23 ketorolac 10 mg tablet 10 mg PO Q6H PRN pain 5 days #20 01/27/23 tabs oxycodone 5 mg tablet 5 mg PO Q4H PRN pain #14 tabs 01/27/23 tamsulosin 0.4 mg capsule (Flomax) 0.4 mg PO DAILY #30 caps 01/27/23 cephalexin 500 mg capsule 500 mg PO BID #28 caps 02/11/23 cyclobenzaprine 10 mg tablet 10 mg PO TID PRN muscle spasm #10 02/11/23 tabs Allergies Allergy/AdvReac Type Severity Reaction Status Date / Time No Known Allergies Allergy Verified 02/11/23 10:19 Review of Systems Review of Systems GEN: Well developed, no acute distress, alert, oriented HEENT: Normocephalic, atraumatic, normal external ears, nose appears normal, no oropharyngeal edema or exudates Eyes: Normal to appearance Neck: Supple, no lymphadenopathy Respiratory: Talks in complete sentences, no respiratory distress, clear to auscultation bilaterally Cardiovascular: Regular rate and rhythm, no murmurs rubs or gallops Abdomen: Soft, +tender, nondistended, no guarding, no rebound Back: No CVA tenderness Extremities: No clubbing cyanosis or edema Neurologic: No focal neurologic deficits, cranial nerves 2-12 intact, strength is 5/5 bilaterally Skin: No rash PMFSH Past Medical History Medical History No known health problems Social History Social History Alcohol intake: never Patient Tobacco Use Status: Current everyday Tobacco user Substance Use Type: Marijuana Advance Directives: No Advance Directives Information Provided: No Physical Exam ED Vital Signs: Vital Signs - 24 hr 02/11/23 10:19 Temperature 98.1 F Pulse Rate 72 Respiratory Rate 18 Blood Pressure 116/70 Pulse Oximetry 98 Oxygen Delivery Method Room Air BMI result Body Mass Index 21.2 GEN: Well developed, no acute distress, alert, oriented HEENT: Normocephalic, atraumatic, normal external ears, nose appears normal, no oropharyngeal edema or exudates Eyes: Normal to appearance Neck: Supple, no lymphadenopathy Respiratory: Talks in complete sentences, no respiratory distress, clear to auscultation bilaterally Cardiovascular: Regular rate and rhythm, no murmurs rubs or gallops Abdomen: Soft, nontender, nondistended, no guarding, no rebound Back: No CVA tenderness Extremities: No clubbing cyanosis or edema Neurologic: No focal neurologic deficits, cranial nerves 2-12 intact, strength is 5/5 bilaterally Skin: No rash Course Course Course Narrative: Patient presents with left-sided abdominal flank pain. Examination is benign. Possible etiology includes renal colic, UTI, pyelonephritis, colitis, diverticulitis. Could also be musculoskeletal, radicular. Will provide patient with analgesics, repeat ultrasound to check for new hydronephrosis. Will re-evaluate patient. Reevaluation(s) Reevaluation #1: The workup is complete. Discussed abnormal lab findings including acute renal injury, ultrasound findings. Recommending close follow-up with repeat lab testing Time: 13:48 Medical Decision Making Medical Decision Making [facility] Narrative: 27-year-old male presents with left-sided abdominal and flank pain. Patient had recent diagnosis of a 2 mm UVJ stone. Exam was benign. Will check metabolic PU to lab tests urinalysis. Check for urinary tract infection. Check for blood in urine. Differential diagnosis could include kidney stone, pyelonephritis, diverticulitis, colitis, gastroenteritis. Differential Diagnosis Differential Diagnoses: The differential diagnosis associated with the presentation includes (See above) Admission/Observation Consideration of admission/observation: Escalation of care including admission/observation considered Lab Data [facility] Lab Attestation statement: I reviewed the patient's lab results. 02/11/23 10:34 02/11/23 10:34 Labs: Lab Results 02/11/23 02/11/23 02/11/23 Range/Units 10:34 10:34 12:06 WBC 10.9 H (4.8-10.8) X10*3/uL RBC 4.40 L (4.60-5.80) X10*6/uL Hgb 13.0 L (14.0-18.0) g/dl Hct 39.7 L (42.0-52.0) % MCV 90.2 (80.0-98.0) fL MCH 29.5 (27.0-33.0) pg MCHC 32.7 (31.0-36.0) g/dl RDW 12.7 (11.0-16.0) % Plt Count 262 (160-400) X10*3/uL MPV 10.3 (9.4-12.4) fL Immature Gran % (Auto) 0.4 (0.0-0.4) % Neut % (Auto) 77.6 H (45-73) % Lymph % (Auto) 11.5 L (20-40) % [place] % (Auto) 9.8 (2-11) % Eos % (Auto) 0.4 (0-4) % Baso % (Auto) 0.3 (0-2) % Lymph # (Auto) 1.3 (1.2-4.9) X10*3/uL [place] # (Auto) 1.1 (0.1-1.2) X10*3/uL Eos # (Auto) 0.0 (0.0-0.4) X10*3/uL Baso # (Auto) 0.0 (0.0-0.2) X10*3/uL Abs Immat Gran (auto) 0.04 H (0.00-0.03) X10*3/uL Absolute Neuts (auto) 8.4 H (2.0-8.3) x10*3/uL Absolute Nucleated RBC 0.000 (0.0-0.012) X10*3/uL Nucleated RBC % (auto) 0.0 (0.0-0.2) /100WBC Sodium 141 (135-145) mmol/L Potassium 4.5 (3.3-5.1) mmol/L Chloride 107 (96-108) mmol/L Carbon Dioxide 25 (22-29) mmol/L Anion Gap 14 (12-20) BUN 21 H (9-16) mg/dL Creatinine 1.86 H (0.5-1.4) mg/dL Estim Creat Clear Calc 54.0 Estimated GFR 43 Random Glucose 84 (60-115) mg/dL Calcium 9.8 D (8.4-10.2) mg/dL Total Bilirubin 0.7 (0.0-1.0) mg/dL AST 39 H (5-37) U/L ALT 34 (0-40) U/L Alkaline Phosphatase 77 (39-117) U/L Total Protein 6.7 (6.5-8.0) g/dL Albumin 4.3 (3.5-5.0) g/dL Urine Color Yellow Urine Appearance Clear Urine pH 6.0 (5.0-9.0) Ur Specific [place] >= 1.030 H (1.005-1.025) Urine Protein 30 (1+) H (Neg-Trace) mg/dL Urine Glucose (UA) Negative (Negative) mg/dL Urine Ketones 40 (Negative) mg/dL Urine Blood Negative (Negative) Urine Nitrite Negative (Negative) Ur Leukocyte Esterase Small (1+) H (Negative) Urine RBC 3-5 H (0-2) /HPF Urine WBC 11-20 H (0-5) /HPF Ur Squamous Epith Cells 0-2 (0-2) /HPF Urine Bacteria Trace (None Seen) Hyaline Casts 0-2 (0-2) /LPF Independent Interpretation I performed an independent interpretation of an: Plain X-Ray and Ultrasound (No hydronephrosis) Radiology Impression Discussion of test interpretation with radiology: I have reviewed the radiologist's reading. Radiologist Impression: US/US renal BI IMPRESSION: 1.? Mild left-sided hydronephrosis with a 5 mm calculus noted in the left renal lower pole. 2.? No right-sided nephrolithiasis or hydronephrosis. 3.? Urinary bladder not well evaluated secondary to lack of volume. Dictated By: Debbie Thacker MD Signed By: <Electronically signed by Debbie Thacker MD in OV> 02/11/23 1302 Medications Administered Discontinued Medications Generic Name Dose Route Start Last Admin Trade Name Freq PRN Reason Stop Dose Admin Ketorolac Tromethamine 30 mg 02/11/23 11:11 02/11/23 11:40 Ketorolac Tromethamine 30 Mg/Ml Vial IM 02/11/23 11:12 30 mg ONCE ONE Administration Discharge Plan Discharge Clinical Impression: Left flank pain, Nephrolithiasis, PERFECTO (acute kidney injury) Patient Disposition: Home, Self-Care Instructions: Acute Kidney Injury (DC), Kidney Stones (ED), Flank Pain (ED) Additional Instructions: follow up testing with metabolic panel to assess kidney function Prescriptions: New cephalexin 500 mg capsule 500 mg PO BID Qty: 28 0RF cyclobenzaprine 10 mg tablet 10 mg PO TID PRN (Reason: muscle spasm) Qty: 10 0RF No Action tamsulosin [Flomax] 0.4 mg capsule 0.4 mg PO DAILY Qty: 7 0RF ondansetron 4 mg tablet,disintegrating 4 mg PO Q6-8H PRN (Reason: nausea and vomiting) Qty: 7 0RF oxycodone 5 mg tablet 5 mg PO Q6H PRN (Reason: Moderate Pain (Scale Score 5-6)) Qty: 20 0RF Rx Instructions: Partial Fill upon patient request. tamsulosin [Flomax] 0.4 mg capsule 0.4 mg PO BEDTIME Qty: 4 0RF prednisone 20 mg tablet 20 mg PO DAILY 4 Days Qty: 4 0RF polyethylene glycol 3350 [Miralax] 17 gram/dose powder 17 g PO DAILY PRN (Reason: constipation) Qty: 238 0RF hydrocortisone acetate [Anusol-HC] 25 mg suppository 25 mg SD BID 5 Days Qty: 12 0RF cefuroxime axetil 250 mg tablet 250 mg PO BID Qty: 14 0RF tamsulosin [Flomax] 0.4 mg capsule 0.4 mg PO DAILY Qty: 30 0RF ketorolac 10 mg tablet 10 mg PO Q6H PRN (Reason: pain) 5 Days Qty: 20 0RF oxycodone 5 mg tablet 5 mg PO Q4H PRN (Reason: pain) Qty: 14 0RF Rx Instructions: Patient may request partial fill; Partial Fill upon patient request. Referrals: [facility] [Primary Care Provider] - Bro Hale MD [Physician] - 1 week
[2023-02-11 12:22] LABS: Appearance Urine Clear; Color Urine Yellow; Glucose Urine UA Negative (Negative); Leukocyte Esterase Urine Small (1+) (Negative); Nitrite Urine Negative (Negative); Specific Gravity - Urine >= 1.030 (1.005-1.025); UMIC TRIGGER UACC YES; Urine Blood Negative (Negative); Urine Ketones 40 mg/dL (Negative); Urine Protein 30 (1+) mg/dL (Neg-Trace)
[2023-02-11 12:36] LABS: Bacteria Urine Trace (None Seen); Hyaline Casts Urine 0-2 /LPF (0-2); Squamous Epithelial Cell Urine 0-2 /HPF (0-2); UACC Culture Trigger YES
== END 2023-02-11 14:10 | disposition home or self-care (01) ==
PROVIDERS: Emergency Provider Emergency Medicine
DX: N17.9 Acute kidney failure, unspecified (principal); N13.2 Hydronephrosis with renal and ureteral calculous obstruction; R10.9 Unspecified abdominal pain; F17.200 Nicotine dependence, unspecified, uncomplicated; F12.90 Cannabis use, unspecified, uncomplicated; Z79.899 Other long term (current) drug therapy
CPT/HCPCS: 36415; 76775; 80053; 81001; 85025; 87086; 96372; 99283; 99284; J1885

== ENCOUNTER 2023-04-05 07:13 | Emergency (ER) | payer MEDICAID, SELFPAY ==
--- NOTE | ~2023-04-05 | US_ITS ---
EXAMINATION: US SCROTUM CLINICAL INFORMATION: Acute left testicular pain. COMPARISON: 01/26/2023. TECHNIQUE: A sonogram of the scrotum was performed assessing hawthorne-scale appearance and color Doppler flow. Spectral Doppler analysis of the arterial and venous flow were performed in the testes bilaterally. FINDINGS: RIGHT: Right testicle measures 4.8 x 2.2 x 2.8 cm, volume 15.3 mL. No focal testicular parenchymal lesions are visualized. Spectral Doppler analysis of the arterial and venous flow is increased in the right testis. Right epididymal head is normal in size. No right hydrocele or varicocele is seen. Right epididymal Doppler flow is increased. LEFT: Left testicle measures 4.6 x 2.2 x 2.4 cm, volume 12.8 mL. No focal testicular parenchymal lesions are visualized. Spectral Doppler analysis of the arterial and venous flow is increased in the left testis. Left epididymal head is normal in size. No left hydrocele or varicocele is seen. Left epididymal Doppler flow is increased. US/US scrotum IMPRESSION: No evidence for intratesticular mass or torsion. Increased color flow observed in the bilateral testicles and epididymis structures compared with previous examination suggestive of bilateral epididymoorchitis.
--- NOTE | 2023-04-05 07:19 | ECG_ITS ---
Test Reason : CP Blood Pressure : / mmHG Vent. Rate : 068 BPM Atrial Rate : 068 BPM P-R Int : 108 ms QRS Dur : 090 ms QT Int : 388 ms P-R-T Axes : 036 062 044 degrees QTc Int : 412 ms Sinus rhythm with short TX Incomplete right bundle branch block Borderline ECG No previous ECGs available Referred By: Generic ED Physician Electronically Signed By:DENI CHING
[2023-04-05 07:33] VITALS: BP 121/70; PULSE 72; RESP 15; TEMP 37.1; O2SAT 100; BMI 21.2
[2023-04-05 07:34] VITALS: PULSE 73; RESP 10; O2SAT 99
[2023-04-05 08:04] VITALS: BP 114/68; PULSE 66; RESP 14; O2SAT 100
[2023-04-05 08:16] LABS: Appearance Urine Clear; Color Urine Yellow; Glucose Urine UA Negative (Negative); Leukocyte Esterase Urine Small (1+) (Negative); Nitrite Urine Negative (Negative); PH 6.5 (5.0-9.0); Specific Gravity - Urine 1.025 (1.005-1.025); UMIC TRIGGER UACC YES; Urine Blood Large (3+) (Negative); Urine Ketones Trace mg/dL (Negative); Urine Protein Trace mg/dL (Neg-Trace)
[2023-04-05 08:21] LABS: Bacteria Urine None Seen (None Seen); RBC Urine >20 /HPF (0-2); UACC Culture Trigger YES
--- NOTE | 2023-04-05 08:36 | ED.CHESTPAIN ---
HPI - Chest Pain General Chief Complaint: Chest Pain Stated Complaint: l testicle and chest pain Time Seen by Provider: 04/05/23 07:22 Source: patient and EMS Mode of arrival: EMS Limitations: no limitations History of Present Illness HPI narrative: 27-year-old male presents with 2 complaints. First, patient complains of right-sided chest pain. This has been going on for period of 1 month. The pain is intermittent. Mild to moderate. There is no clear relieving or exacerbating features. Describes the pain as sharp and achy. There is no shortness of breath, palpitations or lightheadedness. Patient is also complaining of left testicular pain. He describes the pain as dull. There is no clear relieving or exacerbating features. The pain does not radiate. Does not associated penile discharge. Patient denies any trauma. Related Data Previous Rx's Medication Instructions Recorded prednisone 20 mg tablet 20 mg PO DAILY 4 days #4 tabs 06/09/21 tamsulosin 0.4 mg capsule (Flomax) 0.4 mg PO BEDTIME #4 caps 06/09/21 ondansetron 4 mg disintegrating 4 mg PO Q6-8H PRN nausea and 05/13/22 tablet vomiting #7 tabs oxycodone 5 mg tablet 5 mg PO Q6H PRN Moderate Pain 05/13/22 (Scale Score 5-6) #20 tabs tamsulosin 0.4 mg capsule (Flomax) 0.4 mg PO DAILY #7 caps 05/13/22 hydrocortisone acetate 25 mg 25 mg LA BID 5 days #12 ea 01/01/23 rectal suppository (Anusol-HC) polyethylene glycol 3350 17 17 g PO DAILY PRN constipation 01/01/23 gram/dose oral powder (Miralax) #238 grams cefuroxime axetil 250 mg tablet 250 mg PO BID #14 tabs 01/26/23 ketorolac 10 mg tablet 10 mg PO Q6H PRN pain 5 days #20 01/27/23 tabs oxycodone 5 mg tablet 5 mg PO Q4H PRN pain #14 tabs 01/27/23 tamsulosin 0.4 mg capsule (Flomax) 0.4 mg PO DAILY #30 caps 01/27/23 cephalexin 500 mg capsule 500 mg PO BID #28 caps 02/11/23 cyclobenzaprine 10 mg tablet 10 mg PO TID PRN muscle spasm #10 02/11/23 tabs Allergies Allergy/AdvReac Type Severity Reaction Status Date / Time No Known Allergies Allergy Verified 02/11/23 10:19 Review of Systems Review of Systems: CONSTITUTIONAL: Denies weight loss, fever and chills. HEENT: Denies changes in vision and hearing. RESPIRATORY: Denies SOB and cough. CV: Denies palpitations + CP. GI: Denies abdominal pain, nausea, vomiting and diarrhea. : Denies dysuria and urinary frequency. MSK: Denies myalgia and joint pain. SKIN: Denies rash and pruritus. NEUROLOGICAL: Denies headache and syncope. PSYCHIATRIC: Denies recent changes in mood. Denies anxiety and depression. All other ROS are negative unless in HPI PMFSH Past Medical History Medical History No known health problems Social History Social History Alcohol intake: never Patient Tobacco Use Status: Current everyday Tobacco user Smoked in Last 30 Days: Yes Use of substances other than those prescribed or required for medical reasons: Yes Substance Use Type: Marijuana Advance Directives: No Advance Directives Information Provided: No Physical Exam Vital Signs: Vital Signs: Last Vital Signs Temp 98.8 F 04/05/23 07:33 Pulse 66 04/05/23 08:04 Resp 14 04/05/23 08:04 BP 114/68 04/05/23 08:04 Pulse Ox 100 04/05/23 08:04 O2 Del Method Room Air 04/05/23 08:04 BMI result Body Mass Index 21.2 GEN: Well developed, no acute distress, alert, oriented HEENT: Normocephalic, atraumatic, normal external ears, nose appears normal, no oropharyngeal edema or exudates Eyes: Normal to appearance Neck: Supple, no lymphadenopathy Respiratory: Talks in complete sentences, no respiratory distress, clear to auscultation bilaterally Cardiovascular: Regular rate and rhythm, no murmurs rubs or gallops Abdomen: Soft, nontender, nondistended, no guarding, no rebound Back: No CVA tenderness Extremities: No clubbing cyanosis or edema Neurologic: No focal neurologic deficits, cranial nerves 2-12 intact, strength is 5/5 bilaterally Skin: No rash Chest wall: Reproducible right of sternum chest wall tenderness to palpation point specific : Normal external genitalia, positive cremasteric reflexes, prominent epididymis on the left testicle. To palpation Course Course Course Narrative: Is 9:30 a.m.. The workup is complete. Chest pain is atypical and reproducible. Likely musculoskeletal. Patient will take anti-inflammatory pain medications for 10-12 days. As far as the testicular pain is concerned, ultrasound identified likely epididymo-orchitis. He will be treated with azithromycin and ceftriaxone. We are awaiting culture results/gonorrhea/chlamydia PCR. Patient will follow-up with urology as needed. Medical Decision Making Medical Decision Making [facility] Narrative: Patient presents with chest pain. Chest pain is reproducible on examination. Is atypical and not associated with exertion. Will have an EKG performed. His lungs are clear to auscultation bilaterally. Do not see an indication to have any imaging studies. Doubt PE, pneumothorax or other potentially catastrophic diagnosis of his reproducible chest wall tenderness. Patient also has left testicular tenderness. I suspect epididymitis based on his examination however, orchitis, hernia or other possible diagnoses. Will obtain an ultrasound to rule out torsion, orchitis, etc.. Will also obtain a urinalysis to rule out STI. Differential Diagnosis Differential Diagnoses: The differential diagnosis associated with the presentation includes (See above) Lab Data [facility] Lab Attestation statement: I reviewed the patient's lab results. Labs: Lab Results 04/05/23 Range/Units 08:01 Urine Color Yellow Urine Appearance Clear Urine pH 6.5 (5.0-9.0) Ur Specific [place] 1.025 (1.005-1.025) Urine Protein Trace (Neg-Trace) mg/dL Urine Glucose (UA) Negative (Negative) mg/dL Urine Ketones Trace (Negative) mg/dL Urine Blood Large (3+) H (Negative) Urine Nitrite Negative (Negative) Ur Leukocyte Esterase Small (1+) H (Negative) Urine RBC >20 H (0-2) /HPF Urine WBC 6-10 H (0-5) /HPF Ur Squamous Epith Cells 3-5 (0-2) /HPF Urine Bacteria None Seen (None Seen) Hyaline Casts 3-5 (0-2) /LPF Independent Interpretation I performed an independent interpretation of an: EKG (Normal sinus rhythm heart 68, normal intervals, no acute ST elevations depressions, nonspecific T-wave changes noted lead 3 and AVF. Likely normal EKG.) and Ultrasound (Scrotal: NAD ) Radiology Impression Discussion of test interpretation with radiology: I have reviewed the radiologist's reading. Radiologist Impression: US/US scrotum IMPRESSION: No evidence for intratesticular mass or torsion. ? Increased color flow observed in the bilateral testicles and epididymis structures compared with previous examination suggestive of bilateral epididymoorchitis. Dictated By: Brennon Eastman Signed By: <Electronically signed by Brennon? Jaren in OV> 04/05/23 0903 Prescription Management I considered prescription management with: Pain Medication Discharge Plan Discharge Clinical Impression: Acute chest wall pain, Left testicular pain, Acute epididymo-orchitis Patient Disposition: Home, Self-Care Instructions: Testicle Pain (ED), Chest Wall Pain (ED), Epididymo-Orchitis (ED) Prescriptions: No Action tamsulosin [Flomax] 0.4 mg capsule 0.4 mg PO DAILY Qty: 7 0RF ondansetron 4 mg tablet,disintegrating 4 mg PO Q6-8H PRN (Reason: nausea and vomiting) Qty: 7 0RF oxycodone 5 mg tablet 5 mg PO Q6H PRN (Reason: Moderate Pain (Scale Score 5-6)) Qty: 20 0RF Rx Instructions: Partial Fill upon patient request. tamsulosin [Flomax] 0.4 mg capsule 0.4 mg PO BEDTIME Qty: 4 0RF prednisone 20 mg tablet 20 mg PO DAILY 4 Days Qty: 4 0RF polyethylene glycol 3350 [Miralax] 17 gram/dose powder 17 g PO DAILY PRN (Reason: constipation) Qty: 238 0RF hydrocortisone acetate [Anusol-HC] 25 mg suppository 25 mg LA BID 5 Days Qty: 12 0RF cephalexin 500 mg capsule 500 mg PO BID Qty: 28 0RF cyclobenzaprine 10 mg tablet 10 mg PO TID PRN (Reason: muscle spasm) Qty: 10 0RF cefuroxime axetil 250 mg tablet 250 mg PO BID Qty: 14 0RF tamsulosin [Flomax] 0.4 mg capsule 0.4 mg PO DAILY Qty: 30 0RF ketorolac 10 mg tablet 10 mg PO Q6H PRN (Reason: pain) 5 Days Qty: 20 0RF oxycodone 5 mg tablet 5 mg PO Q4H PRN (Reason: pain) Qty: 14 0RF Rx Instructions: Patient may request partial fill; Partial Fill upon patient request. Referrals: Ray Allen MD [Physician] - 1 week
--- NOTE | 2023-04-05 08:59 | PC.NURSE ---
pt a&o x4, pleasant, calm, and cooperative. reports chest pain that worsens with palpation. pt sts he works out and when he picked up his niece yesterday, pain increased. pt also reports the last time he was here for L testicular pain, he was dx with an PERFECTO but has not had time to follow up for treatment for it. pt sts he still has L testicular pain/tingling. pt resting quietly on stretcher, EKG obtained, labs drawn, and urine samples sent. vss. wctm.
[2023-04-05] MEDS: Azithromycin 500 MG TABLET 1000 MG PO (09:49)
[2023-04-05] MEDS: cefTRIAXone sodium 500 MG, Lidocaine HCl 1 % MPF 1 ML IM (09:49)
[2023-04-05 14:05] LABS: CT PCR NOT DETECTED (Not Detect.); NG PCR NOT DETECTED (Not Detect.)
== END 2023-04-05 09:58 | disposition home or self-care (01) ==
PROVIDERS: Emergency Provider Emergency Medicine
DX: R07.89 Other chest pain (principal); N50.812 Left testicular pain; N45.3 Epididymo-orchitis; F17.200 Nicotine dependence, unspecified, uncomplicated; F12.90 Cannabis use, unspecified, uncomplicated; Z79.899 Other long term (current) drug therapy
CPT/HCPCS: 0353U; 76870; 81001; 87086; 93005; 96372; 99284; 99285; J0696

== ENCOUNTER → 2023-04-05 07:19 | Outpatient (BNV) | payer MEDICAID, SELFPAY | PROVIDERS: Emergency Provider Emergency Medicine; Visit Provider Internal Medicine | DX: R07.9 Chest pain, unspecified (principal) | CPT/HCPCS: 93010 ==

== ENCOUNTER 2024-05-13 00:53 | Emergency (ER) | payer SELFPAY ==
[2024-05-13 01:12] VITALS: BP 119/72; PULSE 75; RESP 18; TEMP 36.9; O2SAT 98; BMI 22.0
[2024-05-13 01:49] LABS: Basophils Percent Auto 0.3 % (0-2); Eosinophils Absolute Auto 0.2 X10*3/uL (0.0-0.4); Eosinophils Percent Auto 2.2 % (0-4); Hematocrit 42.5 % (42.0-52.0); Hemoglobin 14.5 g/dl (14.0-18.0); Imm Gran Abs Auto 0.04 X10*3/uL (0.00-0.03); Imm Gran Pct Auto 0.4 % (0.0-0.4); Lymphocytes Absolute Auto 3.9 X10*3/uL (1.2-4.9); Lymphocytes Percent Auto 38.1 % (20-40); MANUAL DIFF FLAG NO; Mean Corpuscular HGB Conc 34.1 g/dl (31.0-36.0); Mean Corpuscular Hemoglobin 30.5 pg (27.0-33.0); Mean Corpuscular Volume 89.5 fL (80.0-98.0); Mean Platelet Volume 10.6 fL (9.4-12.4); Monocytes Absolute Auto 0.8 X10*3/uL (0.1-1.2); Monocytes Percent Auto 8.2 % (2-11); Neutrophils Absolute Auto 5.2 x10*3/uL (2.0-8.3); Neutrophils Percent Auto 50.8 % (45-73); Platelet Count 250 X10*3/uL (160-400); Red Blood Count 4.75 X10*6/uL (4.60-5.80); Red Cell Distribution Width 13.1 % (11.0-16.0); White Blood Count 10.2 X10*3/uL (4.8-10.8)
[2024-05-13 01:51] LABS: Appearance Urine Clear; Color Urine Yellow; Glucose Urine UA Negative (Negative); Leukocyte Esterase Urine Trace (Negative); Nitrite Urine Negative (Negative); Specific Gravity - Urine 1.025 (1.005-1.025); UMIC TRIGGER UACC YES; Urine Blood Negative (Negative); Urine Ketones Trace mg/dL (Negative); Urine Protein Trace mg/dL (Neg-Trace)
[2024-05-13 01:54] LABS: Bacteria Urine None Seen (None Seen); Hyaline Casts Urine 0-2 /LPF (0-2); RBC Urine 0-2 /HPF (0-2); Squamous Epithelial Cell Urine 0-2 /HPF (0-2); UACC Culture Trigger YES
[2024-05-13 02:27] LABS: Alanine Aminotransferase 14 U/L (0-40); Albumin Level 4.2 g/dL (3.5-5.0); Alkaline Phosphatase 66 U/L (39-117); Anion Gap 12 (12-20); Aspartate Amino Transferase 24 U/L (5-37); Bilirubin Total 0.2 mg/dL (0.0-1.0); Blood Urea Nitrogen 15 mg/dL (9-16); Calcium 9.5 mg/dL (8.4-10.2); Carbon Dioxide 24 mmol/L (22-29); Chloride 108 mmol/L (96-108); Creatinine Clr Calc Pharmacy 104.6; Estimated Glomerular Filt Rate > 60; Glucose Random 97 mg/dL (60-115); Potassium 3.4 mmol/L (3.3-5.1); Sodium 141 mmol/L (135-145); Total Protein 6.6 g/dL (6.5-8.0)
--- NOTE | 2024-05-13 02:49 | ED_ITS ---
HPI - General Adult General Chief complaint: Abdominal Pain Stated complaint: kidney stones again? Time Seen by Provider: 05/13/24 02:49 History of Present Illness ED Provider: Arabella ORTEGA narrative: The patient is a 28-year-old male. He has a history of having had kidney stones in the past. He says that he was going to work tonight for an 23:00 shift at an [facility] house when he started to have pain in his right lower back that he thought might be like kidney stone pain. He had nausea but no vomiting. No diarrhea. No fever. He came to the emergency room for evaluation. While waiting to be seen in the emergency room he has had improvement in his symptoms although he still has some mild residual discomfort. Related Data Previous Rx's ?Medication ?Instructions ?Recorded prednisone 20 mg tablet 20 mg PO DAILY 4 days #4 tabs 06/09/21 tamsulosin 0.4 mg capsule (Flomax) 0.4 mg PO BEDTIME #4 caps 06/09/21 ondansetron 4 mg disintegrating 4 mg PO Q6-8H PRN nausea and 05/13/22 tablet vomiting #7 tabs oxycodone 5 mg tablet 5 mg PO Q6H PRN Moderate Pain 05/13/22 (Scale Score 5-6) #20 tabs tamsulosin 0.4 mg capsule (Flomax) 0.4 mg PO DAILY #7 caps 05/13/22 hydrocortisone acetate 25 mg 25 mg IA BID 5 days #12 ea 01/01/23 rectal suppository (Anusol-HC) polyethylene glycol 3350 17 17 g PO DAILY PRN constipation 01/01/23 gram/dose oral powder (Miralax) #238 grams cefuroxime axetil 250 mg tablet 250 mg PO BID #14 tabs 01/26/23 ketorolac 10 mg tablet 10 mg PO Q6H PRN pain 5 days #20 01/27/23 tabs oxycodone 5 mg tablet 5 mg PO Q4H PRN pain #14 tabs 01/27/23 tamsulosin 0.4 mg capsule (Flomax) 0.4 mg PO DAILY #30 caps 01/27/23 cephalexin 500 mg capsule 500 mg PO BID #28 caps 02/11/23 cyclobenzaprine 10 mg tablet 10 mg PO TID PRN muscle spasm #10 02/11/23 tabs Allergies Allergy/AdvReac Type Severity Reaction Status Date / Time No Known Allergies Allergy Verified 05/13/24 01:14 Review of Systems 2 Review of Systems: Yes all other systems are reviewed and are negative [facility] Past Medical History Medical History No known health problems Social History Social History Alcohol intake: never Patient Tobacco Use Status: Current everyday Tobacco user Smoked in Last 30 Days: Yes Use of substances other than those prescribed or required for medical reasons: Yes Substance Use Type: Marijuana Advance Directives: No Advance Directives Information Provided: Yes Do you have a plan to hurt others: No Plan Physical Exam ED Vital Signs: Vital Signs - 24 hr 05/13/24 01:12 05/13/24 03:33 Temperature 98.4 F 98.4 F Pulse Rate 75 56 Respiratory Rate 18 16 Blood Pressure 119/72 101/66 Pulse Oximetry 98 98 Oxygen Delivery Method Room Air Room Air BMI result Body Mass Index 22.0 Const Other: The patient had fall asleep prior to my evaluation. He seemed to be sleeping soundly. He woke with gentle tactile stimulation. He did not seem in obvious distress although he describes some ongoing right-sided discomfort.. HENMT Head: Yes normal to inspection Face and sinus: Yes normal facial exam Mouth: Normal oral and palatal mucosa present Eyes General: appearance normal, both eyes and all related structures Periorbital: periorbital findings normal Conjunctivae: conjunctivae normal Neck Neck: Yes normal visual inspection and Yes full ROM Resp Effort & Inspection: normal respiratory effort Auscultation: clear to auscultation bilaterally Cardio Rate: regular rate Rhythm: regular rhythm Heart sounds: S1 normal heart sound present and S2 normal heart sound present GI Other: The abdomen is flat, soft, nontender. Back/Spine/Pelvis Other: No definite CVA percussion tenderness. Skin Other: Skin is dry and unremarkable. Neuro Other: The patient was initially asleep. He woke to normal mental status. Cranial nerves are grossly intact. He moves extremities normally and seems grossly neurologically intact. Extrem Other: No peripheral edema. Medications Administered Discontinued Medications Generic Name Dose Route Start Last Admin Trade Name Freq PRN Reason Stop Dose Admin Ketorolac Tromethamine 30 mg 05/13/24 02:54 05/13/24 03:07 Ketorolac Tromethamine 30 Mg/Ml Vial IM 05/13/24 02:55 30 mg ONCE ONE Administration Medical Decision Making Medical Decision Making [facility] Narrative: The patient had presented to triage complaining of right flank pain associated with nausea but no vomiting which he felt was similar to previous symptoms of renal colic. While waiting to be seen the patient had fallen asleep. He woke easily and seemed to complain of some ongoing right-sided flank discomfort although he did not have obvious right-sided percussion tenderness. His urinalysis showed no blood. He has a small amount of leukocyte esterase and white cells on his urinalysis but this seems to be baseline for him. Previous similarly abnormal urinalyses with urine cultures have had no growth. The patient was offered a CT of the abdomen and pelvis to evaluate for a possible ureteral stone. The patient was not certain that he wanted a CT scan. He was given a dose of IM ketorolac. He was observed. He seemed to feel better. He was again offered a CT scan to evaluate for a stone but he does not wish To have a CT scan. Ultimately he was discharged. He requested a work note which was provided. He should return if significantly worse and otherwise follow-up with his regular doctors. Lab Data 05/13/24 01:39 05/13/24 02:07 Labs: Lab Results 05/13/24 05/13/24 Range/Units 01:39 02:07 WBC 10.2 (4.8-10.8) X10*3/uL RBC 4.75 (4.60-5.80) X10*6/uL Hgb 14.5 (14.0-18.0) g/dl Hct 42.5 (42.0-52.0) % MCV 89.5 (80.0-98.0) fL MCH 30.5 (27.0-33.0) pg MCHC 34.1 (31.0-36.0) g/dl RDW 13.1 (11.0-16.0) % Plt Count 250 (160-400) X10*3/uL MPV 10.6 (9.4-12.4) fL Immature Gran % (Auto) 0.4 (0.0-0.4) % Neut % (Auto) 50.8 (45-73) % Lymph % (Auto) 38.1 (20-40) % [place] % (Auto) 8.2 (2-11) % Eos % (Auto) 2.2 (0-4) % Baso % (Auto) 0.3 (0-2) % Lymph # (Auto) 3.9 (1.2-4.9) X10*3/uL [place] # (Auto) 0.8 (0.1-1.2) X10*3/uL Eos # (Auto) 0.2 (0.0-0.4) X10*3/uL Baso # (Auto) 0.0 (0.0-0.2) X10*3/uL Abs Immat Gran (auto) 0.04 H (0.00-0.03) X10*3/uL Absolute Neuts (auto) 5.2 (2.0-8.3) x10*3/uL Absolute Nucleated RBC 0.000 (0.0-0.012) X10*3/uL Nucleated RBC % (auto) 0.0 (0.0-0.2) /100WBC Sodium 141 (135-145) mmol/L Potassium 3.4 (3.3-5.1) mmol/L Chloride 108 (96-108) mmol/L Carbon Dioxide 24 (22-29) mmol/L Anion Gap 12 (12-20) BUN 15 (9-16) mg/dL Creatinine 0.96 (0.5-1.4) mg/dL Estim Creat Clear Calc 104.6 Estimated GFR > 60 Random Glucose 97 (60-115) mg/dL Calcium 9.5 (8.4-10.2) mg/dL Total Bilirubin 0.2 (0.0-1.0) mg/dL AST 24 (5-37) U/L ALT 14 (0-40) U/L Alkaline Phosphatase 66 (39-117) U/L Total Protein 6.6 (6.5-8.0) g/dL Albumin 4.2 (3.5-5.0) g/dL Urine Color Yellow Urine Appearance Clear Urine pH 6.0 (5.0-9.0) Ur Specific [place] 1.025 (1.005-1.025) Urine Protein Trace (Neg-Trace) mg/dL Urine Glucose (UA) Negative (Negative) mg/dL Urine Ketones Trace (Negative) mg/dL Urine Blood Negative (Negative) Urine Nitrite Negative (Negative) Ur Leukocyte Esterase Trace H (Negative) Urine RBC 0-2 (0-2) /HPF Urine WBC 6-10 H (0-5) /HPF Ur Squamous Epith Cells 0-2 (0-2) /HPF Urine Bacteria None Seen (None Seen) Hyaline Casts 0-2 (0-2) /LPF Discharge Plan Discharge Clinical Impression: Right flank pain Patient Disposition: Home, Self-Care Additional Instructions: Your testing in the emergency room today seems fairly reassuring. There was no blood in your urine. I do not know if your symptoms indicated done today. Please plan on following up with your regular doctors if you have any ongoing symptoms. If you feel significantly worse return to the emergency department. Prescriptions: No Action tamsulosin [Flomax] 0.4 mg capsule 0.4 mg PO DAILY Qty: 7 0RF ondansetron 4 mg tablet,disintegrating 4 mg PO Q6-8H PRN (Reason: nausea and vomiting) Qty: 7 0RF oxycodone 5 mg tablet 5 mg PO Q6H PRN (Reason: Moderate Pain (Scale Score 5-6)) Qty: 20 0RF Rx Instructions: Partial Fill upon patient request. tamsulosin [Flomax] 0.4 mg capsule 0.4 mg PO BEDTIME Qty: 4 0RF prednisone 20 mg tablet 20 mg PO DAILY 4 Days Qty: 4 0RF polyethylene glycol 3350 [Miralax] 17 gram/dose powder 17 g PO DAILY PRN (Reason: constipation) Qty: 238 0RF hydrocortisone acetate [Anusol-HC] 25 mg suppository 25 mg IA BID 5 Days Qty: 12 0RF cephalexin 500 mg capsule 500 mg PO BID Qty: 28 0RF cyclobenzaprine 10 mg tablet 10 mg PO TID PRN (Reason: muscle spasm) Qty: 10 0RF cefuroxime axetil 250 mg tablet 250 mg PO BID Qty: 14 0RF tamsulosin [Flomax] 0.4 mg capsule 0.4 mg PO DAILY Qty: 30 0RF ketorolac 10 mg tablet 10 mg PO Q6H PRN (Reason: pain) 5 Days Qty: 20 0RF oxycodone 5 mg tablet 5 mg PO Q4H PRN (Reason: pain) Qty: 14 0RF Rx Instructions: Patient may request partial fill; Partial Fill upon patient request. Stand Alone Forms: Work/School Release Interventions: ED Discharge Assessment Last Done: 05/13/24 03:57 Discharge Date/Time: 05/13/24 03:58 Print Language: Armenian
[2024-05-13] MEDS: Ketorolac Tromethamine 30 MG/ML VIAL IM (03:07)
[2024-05-13 03:33] VITALS: BP 101/66; PULSE 56; RESP 16; TEMP 36.9; O2SAT 98
--- NOTE | 2024-05-13 03:42 | PC.NURSE ---
pt states he is feeling better, when asked if he wanted a Ct of his abd, pt states no . when asked if he wanted to go home, pt states yes , informed
[2024-05-13 03:57] VITALS: BP 101/66; PULSE 56; RESP 16; TEMP 36.9; O2SAT 98
== END 2024-05-13 03:58 | disposition home or self-care (01) ==
PROVIDERS: Emergency Provider Emergency Medicine
DX: R10.9 Unspecified abdominal pain (principal); F17.210 Nicotine dependence, cigarettes, uncomplicated; F12.90 Cannabis use, unspecified, uncomplicated; Z79.899 Other long term (current) drug therapy
CPT/HCPCS: 36415; 80053; 81001; 85025; 87086; 96372; 99284; J1885

== ENCOUNTER 2024-08-22 10:39 | Emergency (ER) | payer MEDICAID, SELFPAY ==
--- NOTE | ~2024-08-22 | US_ITS ---
EXAMINATION: US SCROTUM CLINICAL INFORMATION: Acute left-sided testicular pain.. COMPARISON: Scrotal ultrasound January 26, 2023 TECHNIQUE: A sonogram of the scrotum was performed assessing hawthorne-scale appearance and color Doppler flow. Spectral Doppler analysis of the arterial and venous flow were performed in the testes bilaterally. FINDINGS: RIGHT: Right testicle measures 4.8 x 2.2 x 2.8 cm, volume 15.3 mL. No focal testicular parenchymal lesions are visualized. Spectral Doppler analysis of the arterial and venous flow is mildly increased in the right testis. Right epididymal head is normal in size. No right hydrocele or varicocele is seen. Right epididymal Doppler flow is mildly increased. LEFT: Left testicle measures 4.6 x 2.2 x 2.4 cm, volume 12.8 mL. No focal testicular parenchymal lesions are visualized. Spectral Doppler analysis of the arterial and venous flow is mildly increased in the left testis. Left epididymal head is normal in size. No left hydrocele or varicocele is seen. Left epididymal Doppler flow is mildly increased. US/US scrotum doppler IMPRESSION: Mildly Increased vascularity of the bilateral testes and epididymides compared to prior exam suggestive of possible bilateral epididymoorchitis. There is no hydrocele. Echotexture of testes and epididymis is normal. Electronically signed by: Virgilio Miller MD 08/22/2024 03:39 PM EST
--- NOTE | ~2024-08-22 | CT_ITS ---
EXAMINATION: CT ABDOMEN AND PELVIS WITHOUT CONTRAST CLINICAL INFORMATION: Left flank pain. COMPARISON: CT dated January 26, 2023. TECHNIQUE: Multidetector volumetric imaging was performed from the superior aspect of the liver through the pubic symphysis. Sagittal and coronal reformatted images were obtained on the technologist's workstation. This CT examination was performed using dose optimization techniques as appropriate, variously including the following: *Automated exposure control *Adjustment of mA and/or kV according to patient size (this includes techniques or standardized protocols for targeted exams where dose is matched to indication/reason for exam; i.e. extremities or head) *Use of iterative reconstruction technique DLP: 376 mGy-cm FINDINGS: Inadequate evaluation of the intra-abdominal organs and vascular structures due to lack of IV contrast. LUNG BASES: No acute airspace disease or gross alignment nodules in the included lungs. LIVER, GALLBLADDER, AND BILIARY TREE: Liver measures 15 cm. No pericholecystic fluid collection or gallbladder wall thickening. No intrahepatic or extrahepatic biliary ductal dilatation. PANCREAS: No peripancreatic fluid collections or edema pattern. No main pancreatic ductal dilatation. SPLEEN: 10 cm. Small accessory spleen. ADRENAL GLANDS: No nodular lesions. KIDNEYS AND URETERS: Right kidney: Slightly increased density in the medullary pelvicalyceal region. No hydronephrosis. Left kidney: There is a cluster of 1.5 mm calculus in the distal left ureter near the vesicoureteral junction. There is mild to moderate dilatation of the left pelvicalyceal system and the left ureter. 1 mm calcification in the lower pole, pelvicalyceal system. . BLADDER: Collapsed. GASTROINTESTINAL TRACT: Gas and fluid-filled mildly prominent small bowel loops. Collapsed appearance of the left hemicolon. No intestinal obstruction pattern. No ascites. No pneumoperitoneum. No pneumatosis intestinalis. Appendix is normal. ABDOMINAL WALL: Small tiny fat-containing umbilical hernia. LYMPH NODES: Prominent less than 1 cm lymph nodes, mesenteric and retroperitoneal. VASCULAR: No aneurysm, aorta. PELVIC VISCERA: The prostate gland is not enlarged. OSSEOUS STRUCTURES: No acute fracture or listhesis. Decreased intervertebral disc height at L5-S1. Probable bony island in the acetabulum. CT/CT abdomen pelvis wo IV con IMPRESSION: Cluster of 1.5 mm obstructing calculi, distal left ureter near the vesicoureteral junction resulting in mild to moderate left hydroureteronephrosis. 1 mm calculus, left kidney. Probable ileus. Fleischner guidelines were followed. Electronically signed by: Keegan Cannon MD 08/22/2024 03:20 PM GINI
--- NOTE | ~2024-08-22 | US_ITS ---
EXAMINATION: US SCROTUM CLINICAL INFORMATION: Acute left-sided testicular pain.. COMPARISON: Scrotal ultrasound January 26, 2023 TECHNIQUE: A sonogram of the scrotum was performed assessing hawthorne-scale appearance and color Doppler flow. Spectral Doppler analysis of the arterial and venous flow were performed in the testes bilaterally. FINDINGS: RIGHT: Right testicle measures 4.8 x 2.2 x 2.8 cm, volume 15.3 mL. No focal testicular parenchymal lesions are visualized. Spectral Doppler analysis of the arterial and venous flow is mildly increased in the right testis. Right epididymal head is normal in size. No right hydrocele or varicocele is seen. Right epididymal Doppler flow is mildly increased. LEFT: Left testicle measures 4.6 x 2.2 x 2.4 cm, volume 12.8 mL. No focal testicular parenchymal lesions are visualized. Spectral Doppler analysis of the arterial and venous flow is mildly increased in the left testis. Left epididymal head is normal in size. No left hydrocele or varicocele is seen. Left epididymal Doppler flow is mildly increased. US/US scrotum IMPRESSION: Mildly Increased vascularity of the bilateral testes and epididymides compared to prior exam suggestive of possible bilateral epididymoorchitis. There is no hydrocele. Echotexture of testes and epididymis is normal. Electronically signed by: Virgilio Miller MD 08/22/2024 03:39 PM EST
--- OUTSIDE RECORDS SUMMARY | 2024-08-22 10:47 | XMS_ITS | Continuity of Care Document ---
Author Organization [facility] Address [address] [place] [address] Phone Care Team Providers Care Manager Dental Name Role Phone MarcelinoAyo ordonez Unavailable Unavailable Procedures Procedure Date EMERGENCY DEPT VISIT X-RAY EXAM OF HAND EMERGENCY DEPT VISIT Advance Directives Directive Yes / No Effective Date File Name No Information Encounters Encounter Description Practice Location Reason(s) For Visit Diagnoses Date Provider Providers Copied on Encounter EMERGENCY DEPT VISIT [facility] , [address] [place], [id number], [place] tel:[phone] [facility] Open wound of hand except fingers alone, without mention of complicationAcciden ts caused by other specified cutting and piercing instruments or objects 2 Ryland Rollins. [address] [place], [id number] , [place]. tel: [phone] [facility] , [address] [place], [id number], [place] tel:[phone] [facility] RAD[facility]OLOG[facility] Open wound of hand except fingers alone, without mention of complication 2 Alf Machado. [address] [place], [id number] , [place]. tel: [phone] EMERGENCY DEPT VISIT [facility] , [address] [place], [id number], [place] tel:[phone] [facility] Emergency Dept Migraine, unspecified without mention of intractable migraine 1 Daphne Ball. [address] [place], [id number] , [place]. tel: [phone] Family History Family Member Type Diagnosis Age At Onset No Information Payers Payer name Insurance type Covered libertarian ID Authoriza arlin(s) [employer] [place] [id number] Social History Type Description Quantity Date Captured Comments Sex Male Smoking Status No Information Chief Complaint And Reason For Visit No Information Reason For Referral Reason For Referral No Information History Of Present Illness Encounter Date Complaint History Of Prese nt Illness No Information Functional Status Date Functional Assessmen t No Information Instructions Date Instruction Additional Infor mation No Information Assessments Type Assessment Date No Information Patient Care Teams Name Effective Dates (start - stop) Status Members No Information
[2024-08-22 11:08] VITALS: BP 138/91; PULSE 62; RESP 16; TEMP 36.2; O2SAT 98; BMI 22.8
--- NOTE | 2024-08-22 11:11 | ED_ITS ---
HPI - General Adult General Chief complaint: Urogenital-Male Stated complaint: l side abd pain Time Seen by Provider: 08/22/24 12:41 Source: patient Mode of arrival: ambulatory Limitations: no limitations History of Present Illness ED Provider: MARY BARBOSA PA-C HPI narrative: 29 year old male with pmhx significant for epididumo-orchitis and nephrolithiasis presents to the ED today for evaluation of intermittent left testicular pain and swelling x1 week. He states symptoms initially began in his right testicle. Pain has now moved primarily to his left testicle. He states his left testicle is painful to the touch. Pain radiates to his left lower abdomen. Denies any blunt injury or trauma to his testicles. No clear exacerbating or relieving factors. He has not trialed any [id number] pain medications at home. He reports associated urinary hesitancy and dysuria. Denies fever, chills, hematuria, flank pain. Denies constipation, diarrhea. He states he is sexually active with one female partner. He uses protection in the form of a condom. He has tested negative for STIs in the past. He is not currently concerned for STIs. Denies penile discharge or lesions. Related Data Previous Rx's ?Medication ?Instructions ?Recorded prednisone 20 mg tablet 20 mg PO DAILY 4 days #4 tabs 06/09/21 tamsulosin 0.4 mg capsule (Flomax) 0.4 mg PO BEDTIME #4 caps 06/09/21 ondansetron 4 mg disintegrating 4 mg PO Q6-8H PRN nausea and 05/13/22 tablet vomiting #7 tabs oxycodone 5 mg tablet 5 mg PO Q6H PRN Moderate Pain 05/13/22 (Scale Score 5-6) #20 tabs tamsulosin 0.4 mg capsule (Flomax) 0.4 mg PO DAILY #7 caps 05/13/22 hydrocortisone acetate 25 mg 25 mg PA BID 5 days #12 ea 01/01/23 rectal suppository (Anusol-HC) polyethylene glycol 3350 17 17 g PO DAILY PRN constipation 01/01/23 gram/dose oral powder (Miralax) #238 grams cefuroxime axetil 250 mg tablet 250 mg PO BID #14 tabs 01/26/23 ketorolac 10 mg tablet 10 mg PO Q6H PRN pain 5 days #20 01/27/23 tabs oxycodone 5 mg tablet 5 mg PO Q4H PRN pain #14 tabs 01/27/23 tamsulosin 0.4 mg capsule (Flomax) 0.4 mg PO DAILY #30 caps 01/27/23 cephalexin 500 mg capsule 500 mg PO BID #28 caps 02/11/23 cyclobenzaprine 10 mg tablet 10 mg PO TID PRN muscle spasm #10 02/11/23 tabs ketorolac 10 mg tablet 10 mg PO Q8H 5 days #15 tabs 08/22/24 levofloxacin 500 mg tablet 500 mg PO DAILY 5 days #5 tabs 08/22/24 prednisone 20 mg tablet 20 mg PO DAILY 5 days #5 tabs 08/22/24 tamsulosin 0.4 mg capsule (Flomax) 0.4 mg PO BEDTIME 7 days #7 caps 08/22/24 Allergies Allergy/AdvReac Type Severity Reaction Status Date / Time No Known Allergies Allergy Verified 08/22/24 11:12 Review of Systems 2 Review of Systems: Constitutional: No fever, chills, fatigue, night sweats, weight changes ENT/Mouth: No ear pain, hearing loss, nasal congestion, sinus pain, rhinorrhea, sore throat Eyes: No eye pain, swelling, redness, vision changes, discharge Cardio: No chest pain, palpitations, FAUST, orthopnea, peripheral edema Pulm: No SOB, cough, sputum, wheezing, dyspnea, hemoptysis GI: No nausea, vomiting, hematemesis, abdominal pain, diarrhea, constipation, hematochezia, melena : No irregular bleeding, frequency, urgency, hesitancy, hematuria, flank pain, urinary flow changes, urinary incontinence or retention, +dysuria, +left testicular pain/ swelling MSK: No back pain, neck pain, joint pain, myalgias Skin: No lesions, rashes Neuro: No weakness, numbness, paresthesias, LOC, dizziness, headache Psych: No anxiety/panic, depression, SI/HI, AH/VH All other systems reviewed and are negative. [facility] Past Medical History Attestation statement: The following information was validated with the patient. Source: old records reviewed and nursing notes reviewed Medical History No known health problems Social History Social History Alcohol intake: never Patient Tobacco Use Status: Current everyday Tobacco user Substance Use Type: Marijuana Advance Directives: No Advance Directives Information Provided: Yes Do you have a plan to hurt others: No Plan Physical Exam ED Vital Signs: Vital Signs - 24 hr 08/22/24 11:08 08/22/24 17:07 Temperature 97.2 F 97 F Pulse Rate 62 60 Respiratory Rate 16 20 Blood Pressure 138/91 H 110/64 Pulse Oximetry 98 98 Oxygen Delivery Method Room Air Room Air BMI result Body Mass Index 22.8 Patient is hypertensive, afebrile General: Well appearing, in no acute distress. Skin: Warm, dry, intact. No rashes or lesions. Head: Normocephalic, atraumatic. EENT: Hearing is intact b/l. Conjunctiva clear. PERRLA. EOM intact. Moist mucous membranes.? Cardiac: Chest wall symmetric. RRR Lungs: Normal respiratory effort without accessory muscle use. CTA bilaterally Abdomen: Soft, nondistended, nontender to palpation. No rebound tenderness or guarding. No CVAT bilaterally. no palpable hernia or mass. : +Sensitive exam performed with Lola RN at bedside to natalia. testicles with normal lie. no obvious swelling noted to either right or left testicle. no overlying erythema. ttp of left testicle. no palpable testicular masses. no fluctuance. uncircumcised penis. no discharge noted from urethral meatus. no penile lesions. cremasteric reflex present. no inguinal LAD. Back: No midline spinous or paraspinal tenderness. No step off deformity. Ext: Upper and lower extremities atraumatic, without tenderness, deformity, swelling or erythema. Full ROM throughout. Neuro: AOx3. Normal speech. Ambulating with steady gait. Psych: Appropriate mood and affect. Responds appropriately to questions. Course Course Course Narrative: RME, this is a rapid medical exam performed by Mark Ramirez please refer to primary provider for complete H&P- 29-year-old male presents for evaluation of left testicular pain that radiates to his left abdomen. Reports some difficulty urinating and burning with urination. Left testicle is painful to touch per his report. Plan for labs, UA, ultrasound of the scrotum. 12:27- patient had his labs drawn and had a syncopal episode witnessed by staff. He was sitting down when this happened, there was no fall or injury. This is likely a vasovagal syncope. Plan to repeat vital signs in order EKG. Reevaluation(s) Reevaluation #1: 1510 -- CBC with leukocytosis to 12.9 without left shift. No anemia. H&H stable. chemistry without acute electrolyte abnormality requiring intervention. no PERFECTO. normal liver function. lipase wnl. Urine shows large amount of blood, trace leukocyte esterase, 3-5 urine RBCs. Only 0-5 urine WBCs, 0-2 squamous epithelial cells and no bacteria seen. His vitals are stable. He does not meet SIRS criteria for sepsis. CT NG pending. Scrotal ultrasound and CT abdomen pelvis pending. > patient given a dose of IM Toradol without improvement in pain. He was then treated with IV morphine with effect. 1630: Scrotal ultrasound showing: IMPRESSION: Mildly Increased vascularity of the bilateral testes and epididymides compared to prior exam suggestive of possible bilateral epididymoorchitis. There is no hydrocele. Echotexture of testes and epididymis is normal. CT a/p showing: IMPRESSION: Cluster of 1.5 mm obstructing calculi, distal left ureter near the vesicoureteral junction resulting in mild to moderate left hydroureteronephrosis. 1 mm calculus, left kidney. Probable ileus. I reached out to Dr. Allen (urologist) regarding findings. Recommending discharge home with antibiotics, prednisone, flomax, and pain control. Advises outpatient follow up. Referral provided. Levofloxacin sent to pharmacy. CT/NG pending. He does not wish to be prophylactically treated at this time. informed him that provider will contact him with any positive results which may warrant treatment at that time. Patient has remained stable throughout ED visit today. Discussed worrisome signs and symptoms and when to return to the ED. All questions answered at this time. Patient is agreeable with disposition and stable for discharge. Medications Administered Discontinued Medications Generic Name Dose Route Start Last Admin Trade Name Freq PRN Reason Stop Dose Admin Ketorolac Tromethamine 30 mg 08/22/24 12:54 08/22/24 13:09 Ketorolac Tromethamine 30 Mg/Ml Vial IM 08/22/24 12:55 30 mg ONCE ONE Administration Morphine Sulfate 4 mg 08/22/24 13:37 08/22/24 13:48 Morphine Sulfate 4 Mg/Ml Cartridge IVPUSH 08/22/24 13:38 4 mg ONCE ONE Administration Protocol Medical Decision Making Medical Decision Making [facility] Narrative: 29 year old male with pmhx significant for epididumo-orchitis and nephrolithiasis presents to the ED today for evaluation of intermittent left testicular pain and swelling x1 week. Patient is hypertensive to 138/91. he is afebrile. he is uncomfortable appearing, ambulating hunched over, guarding his abdomen. His ambdominal exam is benign. Sensitive exam performed with Lola RN at bedside to natalia. testicles with normal lie. no obvious swelling noted to either right or left testicle. no overlying erythema. ttp of left testicle. no palpable testicular masses. no fluctuance. uncircumcised penis. no discharge noted from urethral meatus. no penile lesions. cremasteric reflex present. no inguinal LAD. no palpable hernia. Basic blood work ordered to assess for anemia, infection, electrolyte abnormality, dehydration, kidney injury. Urinalysis ordered to rule out urinary tract infection. CT/NG ordered to assess for STIs. Scrotal ultrasound with Doppler ordered to rule out orchitis, testicular torsion. CT A/P ordered to assess for renal stone, hydronephrosis, pyelonephritis, hernia. Toradol ordered for pain control. Differential Diagnosis Differential Diagnoses: The differential diagnosis associated with the presentation includes As above Admission/Observation Consideration of admission/observation: Escalation of care including admission/observation considered Admission considered on presentation Consult Healthcare Provider Management of the patient was discussed with: Traffic Ii Manager Urologist Dr. Allen Lab Data [facility] Lab Attestation statement: I reviewed the patient's lab results. As above 08/22/24 12:24 08/22/24 12:24 Labs: Lab Results 08/22/24 Range/Units 12:24 WBC 12.9 H (4.8-10.8) X10*3/uL RBC 4.97 (4.60-5.80) X10*6/uL Hgb 15.0 (14.0-18.0) g/dl Hct 43.2 (42.0-52.0) % MCV 86.9 (80.0-98.0) fL MCH 30.2 (27.0-33.0) pg MCHC 34.7 (31.0-36.0) g/dl RDW 12.8 (11.0-16.0) % Plt Count 281 (160-400) X10*3/uL MPV 10.4 (9.4-12.4) fL Immature Gran % (Auto) 0.5 H (0.0-0.4) % Neut % (Auto) 68.3 (45-73) % Lymph % (Auto) 22.7 (20-40) % Cass % (Auto) 7.3 (2-11) % Eos % (Auto) 1.0 (0-4) % Baso % (Auto) 0.2 (0-2) % Lymph # (Auto) 2.9 (1.2-4.9) X10*3/uL Cass # (Auto) 0.9 (0.1-1.2) X10*3/uL Eos # (Auto) 0.1 (0.0-0.4) X10*3/uL Baso # (Auto) 0.0 (0.0-0.2) X10*3/uL Abs Immat Gran (auto) 0.06 H (0.00-0.03) X10*3/uL Absolute Neuts (auto) 8.8 H (2.0-8.3) x10*3/uL Absolute Nucleated RBC 0.000 (0.0-0.012) X10*3/uL Nucleated RBC % (auto) 0.0 (0.0-0.2) /100WBC Sodium 140 (135-145) mmol/L Potassium 4.0 (3.3-5.1) mmol/L Chloride 110 H (96-108) mmol/L Carbon Dioxide 23 (22-29) mmol/L Anion Gap 11 L (12-20) BUN 13 (9-16) mg/dL Creatinine 1.21 (0.5-1.4) mg/dL Estim Creat Clear Calc 85.1 Estimated GFR > 60 Random Glucose 106 (60-115) mg/dL Calcium 9.7 (8.4-10.2) mg/dL Total Bilirubin 0.4 (0.0-1.0) mg/dL AST 32 (5-37) U/L ALT 26 (0-40) U/L Alkaline Phosphatase 72 (39-117) U/L Total Protein 7.5 (6.5-8.0) g/dL Albumin 4.7 (3.5-5.0) g/dL Lipase 20 (8-78) U/L Urine Color Yellow Urine Appearance Clear Urine pH 5.5 (5.0-9.0) Ur Specific [place] <= 1.005 (1.005-1.025) Urine Protein Negative (Neg-Trace) mg/dL Urine Glucose (UA) Negative (Negative) mg/dL Urine Ketones Negative (Negative) mg/dL Urine Blood Large (3+) H (Negative) Urine Nitrite Negative (Negative) Ur Leukocyte Esterase Trace H (Negative) Urine RBC 3-5 H (0-2) /HPF Urine WBC 0-5 (0-5) /HPF Ur Squamous Epith Cells 0-2 (0-2) /HPF Urine Bacteria None Seen (None Seen) Hyaline Casts 0-2 (0-2) /LPF Independent Interpretation I performed an independent interpretation of an: Ultrasound and CT Scan Interpretation: Scrotal ultrasound showing increased flow bilaterally CT abdomen/pelvis with stone to left ureter Radiology Impression Discussion of test interpretation with radiology: I have reviewed the radiologist's reading. Radiologist Impression: EXAMINATION: US SCROTUM CLINICAL INFORMATION: Acute left-sided testicular pain.. COMPARISON: Scrotal ultrasound January 26, 2023 TECHNIQUE: A sonogram of the scrotum was performed assessing hawthorne-scale appearance and color Doppler flow. Spectral Doppler analysis of the arterial and venous flow were performed in the testes bilaterally. FINDINGS: RIGHT: Right testicle measures 4.8 x 2.2 x 2.8 cm, volume 15.3 mL. No focal testicular parenchymal lesions are visualized. Spectral Doppler analysis of the arterial and venous flow is mildly increased in the right testis. Right epididymal head is normal in size. No right hydrocele or varicocele is seen. Right epididymal Doppler flow is mildly increased. LEFT: Left testicle measures 4.6 x 2.2 x 2.4 cm, volume 12.8 mL. No focal testicular parenchymal lesions are visualized. Spectral Doppler analysis of the arterial and venous flow is mildly increased in the left testis. Left epididymal head is normal in size. No left hydrocele or varicocele is seen. Left epididymal Doppler flow is mildly increased. US/US scrotum IMPRESSION: Mildly Increased vascularity of the bilateral testes and epididymides compared to prior exam suggestive of possible bilateral epididymoorchitis. There is no hydrocele. Echotexture of testes and epididymis is normal. Electronically signed by: Virgilio Miller MD 08/22/2024 03:39 PM [facility] EXAMINATION: CT ABDOMEN AND PELVIS WITHOUT CONTRAST CLINICAL INFORMATION: Left flank pain. COMPARISON: CT dated January 26, 2023. TECHNIQUE: Multidetector volumetric imaging was performed from the superior aspect of the liver through the pubic symphysis. Sagittal and coronal reformatted images were obtained on the technologist's workstation. This CT examination was performed using dose optimization techniques as appropriate, variously including the following: *Automated exposure control *Adjustment of mA and/or kV according to patient size (this includes techniques or standardized protocols for targeted exams where dose is matched to indication/reason for exam; i.e. extremities or head) *Use of iterative reconstruction technique DLP: 376 mGy-cm FINDINGS: Inadequate evaluation of the intra-abdominal organs and vascular structures due to lack of IV contrast. LUNG BASES: No acute airspace disease or gross alignment nodules in the included lungs. LIVER, GALLBLADDER, AND BILIARY TREE: Liver measures 15 cm. No pericholecystic fluid collection or gallbladder wall thickening. No intrahepatic or extrahepatic biliary ductal dilatation. PANCREAS: No peripancreatic fluid collections or edema pattern. No main pancreatic ductal dilatation. SPLEEN: 10 cm. Small accessory spleen. ADRENAL GLANDS: No nodular lesions. KIDNEYS AND URETERS: Right kidney: Slightly increased density in the medullary pelvicalyceal region. No hydronephrosis. Left kidney: There is a cluster of 1.5 mm calculus in the distal left ureter near the vesicoureteral junction. There is mild to moderate dilatation of the left pelvicalyceal system and the left ureter. 1 mm calcification in the lower pole, pelvicalyceal system. . BLADDER: Collapsed. GASTROINTESTINAL TRACT: Gas and fluid-filled mildly prominent small bowel loops. Collapsed appearance of the left hemicolon. No intestinal obstruction pattern. No ascites. No pneumoperitoneum. No pneumatosis intestinalis. Appendix is normal. ABDOMINAL WALL: Small tiny fat-containing umbilical hernia. LYMPH NODES: Prominent less than 1 cm lymph nodes, mesenteric and retroperitoneal. VASCULAR: No aneurysm, aorta. PELVIC VISCERA: The prostate gland is not enlarged. OSSEOUS STRUCTURES: No acute fracture or listhesis. Decreased intervertebral disc height at L5-S1. Probable bony island in the acetabulum. CT/CT abdomen pelvis wo IV con IMPRESSION: Cluster of 1.5 mm obstructing calculi, distal left ureter near the vesicoureteral junction resulting in mild to moderate left hydroureteronephrosis. 1 mm calculus, left kidney. Probable ileus. Fleischner guidelines were followed. Electronically signed by: Keegan Cannon MD 08/22/2024 03:20 PM [facility] External Record Review External record reviewed: Inpatient record, Office record, Outpatient record, Prior outpatient labs, Prior outpatient radiology, Primary care record and Outside ED record Prescription Management I considered prescription management with: Pain Medication (toradol), Antibiotic (levofloxacin) and Other (prednisone, flomax) Chronic Conditions Patient?s care impacted by: Other Social Determinants Patient?s care significantly limited by Social Determinants of Health including: Other Social Determinant of Health Critical Care Time Critical Care Time Critical Care Time: Yes Total Critical Care Time: 31 Attestation: Critical care time in the amount of 31 minutes has been provided to the patient in terms of direct patient care, frequent reevaluation on IV morphine, consultation with urology, review and interpretation of medical data and results, and management of potentially life-threatening conditions. This is all outside of any medical procedures. Discharge Plan Discharge Clinical Impression: Hydroureteronephrosis, Calculus of distal left ureter, Urinary tract infection Patient Disposition: Home, Self-Care Instructions: Hydronephrosis (ED), Ureteral Stones (ED) Additional Instructions: You were evaluated in the ED today for testicular pain. Your blood work is reassuring. Your urine shows mild infection. Your urine has also been sent to assess for chlamydia/gonorrhea. You will be contacted with any positive results. The CT scan of your abdomen shows: Cluster of 1.5 mm obstructing calculi, distal left ureter near the vesicoureteral junction resulting in mild to moderate left hydroureteronephrosis. 1 mm calculus, left kidney. The ultrasound of your scrotum shows: Mildly Increased vascularity of the bilateral testes and epididymides compared to prior exam suggestive of possible bilateral epididymoorchitis. There is no hydrocele. Echotexture of testes and epididymis is normal. Urology is recommending treatment with: Levofloxacin (an antibiotic) to treat infection. Prednisone (steroid) to help with inflammation. Flomax to help flush the stones out. Take this right before bedtime as this can affect her blood pressure. I recommend you take Tylenol as needed for pain control. I have also sent Toradol to your pharmacy for you to take for pain. Do not take this with other NSAIDs such as Motrin as this can increase risk of GI bleeding. Urology would like you to follow-up with their office this week. You have been provided with a referral. Call them to establish care. They will not call you. Prescriptions: New levofloxacin 500 mg tablet 500 mg PO DAILY 5 Days Qty: 5 0RF prednisone 20 mg tablet 20 mg PO DAILY 5 Days Qty: 5 0RF tamsulosin [Flomax] 0.4 mg capsule 0.4 mg PO BEDTIME 7 Days Qty: 7 0RF ketorolac 10 mg tablet 10 mg PO Q8H 5 Days Qty: 15 0RF No Action tamsulosin [Flomax] 0.4 mg capsule 0.4 mg PO DAILY Qty: 7 0RF ondansetron 4 mg tablet,disintegrating 4 mg PO Q6-8H PRN (Reason: nausea and vomiting) Qty: 7 0RF oxycodone 5 mg tablet 5 mg PO Q6H PRN (Reason: Moderate Pain (Scale Score 5-6)) Qty: 20 0RF Rx Instructions: Partial Fill upon patient request. tamsulosin [Flomax] 0.4 mg capsule 0.4 mg PO BEDTIME Qty: 4 0RF prednisone 20 mg tablet 20 mg PO DAILY 4 Days Qty: 4 0RF polyethylene glycol 3350 [Miralax] 17 gram/dose powder 17 g PO DAILY PRN (Reason: constipation) Qty: 238 0RF hydrocortisone acetate [Anusol-HC] 25 mg suppository 25 mg PA BID 5 Days Qty: 12 0RF cephalexin 500 mg capsule 500 mg PO BID Qty: 28 0RF cyclobenzaprine 10 mg tablet 10 mg PO TID PRN (Reason: muscle spasm) Qty: 10 0RF cefuroxime axetil 250 mg tablet 250 mg PO BID Qty: 14 0RF tamsulosin [Flomax] 0.4 mg capsule 0.4 mg PO DAILY Qty: 30 0RF ketorolac 10 mg tablet 10 mg PO Q6H PRN (Reason: pain) 5 Days Qty: 20 0RF oxycodone 5 mg tablet 5 mg PO Q4H PRN (Reason: pain) Qty: 14 0RF Rx Instructions: Patient may request partial fill; Partial Fill upon patient request. Referrals: [facility] [place] [facility] [Provider Group] - 3 days (Cluster of 1.5 mm obstructing calculi, distal left ureter near the vesicoureteral junction resulting in mild to moderate left hydroureteronephrosis. 1 mm calculus, left kidney. ) Discharge Date/Time: 08/22/24 17:07 Print Language: Chinese
--- NOTE | 2024-08-22 12:25 | ECG_ITS ---
Test Reason : abd pain Blood Pressure : / mmHG Vent. Rate : 050 BPM Atrial Rate : 050 BPM P-R Int : 100 ms QRS Dur : 092 ms QT Int : 432 ms P-R-T Axes : 043 072 062 degrees QTc Int : 393 ms Sinus bradycardia with marked sinus arrhythmia with short MT Otherwise normal ECG When compared with ECG of 05-APR-2023 07:20, No significant change was found Referred By: Bear Ramirez Electronically Signed By:DENI CHING
[2024-08-22 12:46] LABS: MANUAL DIFF FLAG NO
[2024-08-22 12:47] LABS: Basophils Percent Auto 0.2 % (0-2); Eosinophils Absolute Auto 0.1 X10*3/uL (0.0-0.4); Hematocrit 43.2 % (42.0-52.0); Imm Gran Abs Auto 0.06 X10*3/uL (0.00-0.03); Imm Gran Pct Auto 0.5 % (0.0-0.4); Lymphocytes Absolute Auto 2.9 X10*3/uL (1.2-4.9); Lymphocytes Percent Auto 22.7 % (20-40); Mean Corpuscular HGB Conc 34.7 g/dl (31.0-36.0); Mean Corpuscular Hemoglobin 30.2 pg (27.0-33.0); Mean Corpuscular Volume 86.9 fL (80.0-98.0); Mean Platelet Volume 10.4 fL (9.4-12.4); Monocytes Absolute Auto 0.9 X10*3/uL (0.1-1.2); Monocytes Percent Auto 7.3 % (2-11); Neutrophils Absolute Auto 8.8 x10*3/uL (2.0-8.3); Neutrophils Percent Auto 68.3 % (45-73); Platelet Count 281 X10*3/uL (160-400); Red Blood Count 4.97 X10*6/uL (4.60-5.80); Red Cell Distribution Width 12.8 % (11.0-16.0); White Blood Count 12.9 X10*3/uL (4.8-10.8)
[2024-08-22 12:49] LABS: Appearance Urine Clear; Color Urine Yellow; Glucose Urine UA Negative (Negative); Leukocyte Esterase Urine Trace (Negative); Nitrite Urine Negative (Negative); PH 5.5 (5.0-9.0); Specific Gravity - Urine <= 1.005 (1.005-1.025); UMIC TRIGGER UACC YES; Urine Blood Large (3+) (Negative); Urine Ketones Negative (Negative); Urine Protein Negative (Neg-Trace)
--- OUTSIDE RECORDS SUMMARY | 2024-08-22 13:03 | XMS_ITS | Continuity of Care Document ---
Author Organization [facility] Address [address] [place] [address] Phone Care Team Providers Care Field Staff Manager Name Role Phone MarcelinoAyo ordonez Unavailable Unavailable Procedures Procedure Date EMERGENCY DEPT VISIT X-RAY EXAM OF HAND EMERGENCY DEPT VISIT Advance Directives Directive Yes / No Effective Date File Name No Information Encounters Encounter Description Practice Location Reason(s) For Visit Diagnoses Date Provider Providers Copied on Encounter EMERGENCY DEPT VISIT [facility] , [address] [place], [id number], [place] tel:[phone] [facility] Open wound of hand except fingers alone, without mention of complicationAcciden ts caused by other specified cutting and piercing instruments or objects 2 Ryland Rollins. [address] [place], [id number] , [place]. tel: [phone] [facility] , [address] [place], [id number], [place] tel:[phone] [facility] RAD[facility]OLOGY [facility] ER Open wound of hand except fingers alone, without mention of complication 2 Alf Machado. [address] [place], [id number] , [place]. tel: [phone] EMERGENCY DEPT VISIT [facility] , [address] [place], [id number], [place] tel:[phone] [facility] Emergency Dept Migraine, unspecified without mention of intractable migraine 1 Daphne Ball. [address] [place], [id number] , [place]. tel: [phone] Family History Family Member Type Diagnosis Age At Onset No Information Payers Payer name Insurance type Covered libertarian ID Authoriza arlin(s) [employer] [id number] Social History Type Description Quantity Date Captured [...]
[2024-08-22 13:09] LABS: Bacteria Urine None Seen (None Seen); Hyaline Casts Urine 0-2 /LPF (0-2); Squamous Epithelial Cell Urine 0-2 /HPF (0-2); WBC Urine 0-5 /HPF (0-5)
[2024-08-22] MEDS: Ketorolac Tromethamine 30 MG/ML VIAL IM (13:09)
[2024-08-22 13:18] LABS: Albumin Level 4.7 g/dL (3.5-5.0); Anion Gap 11 (12-20); Aspartate Amino Transferase 32 U/L (5-37); Bilirubin Total 0.4 mg/dL (0.0-1.0); Blood Urea Nitrogen 13 mg/dL (9-16); Calcium 9.7 mg/dL (8.4-10.2); Carbon Dioxide 23 mmol/L (22-29); Chloride 110 mmol/L (96-108); Creatinine Clr Calc Pharmacy 85.1; Estimated Glomerular Filt Rate > 60; Glucose Random 106 mg/dL (60-115); Sodium 140 mmol/L (135-145); Total Protein 7.5 g/dL (6.5-8.0)
[2024-08-22 13:24] LABS: Alanine Aminotransferase 26 U/L (0-40); Alkaline Phosphatase 72 U/L (39-117); Lipase 20 U/L (8-78)
[2024-08-22] MEDS: Morphine Sulfate 4 MG/ML CARTRIDGE IVPUSH (13:48)
[2024-08-22 17:07] VITALS: BP 110/64; PULSE 60; RESP 20; TEMP 36.1; O2SAT 98
[2024-08-23 12:04] LABS: CT PCR NOT DETECTED (Not Detect.); NG PCR NOT DETECTED (Not Detect.)
== END 2024-08-22 17:07 | disposition home or self-care (01) ==
PROVIDERS: Physician Assistant; Emergency Provider Emergency Medicine Emergency Medical Services
DX: N13.2 Hydronephrosis with renal and ureteral calculous obstruction (principal); N39.0 Urinary tract infection, site not specified; R00.1 Bradycardia, unspecified; N50.812 Left testicular pain; R10.2 Pelvic and perineal pain; Z79.899 Other long term (current) drug therapy
CPT/HCPCS: 36415; 74176; 76870; 80053; 81001; 83690; 85025; 87491; 87591; 93005; 93975; 96372; 96374; 99284; 99285; J1885; J2270

== ENCOUNTER → 2024-08-22 12:25 | Outpatient (BNV) | payer MEDICAID, SELFPAY | PROVIDERS: Emergency Provider Emergency Medicine Emergency Medical Services; Visit Provider Internal Medicine | DX: R00.1 Bradycardia, unspecified (principal) | CPT/HCPCS: 93010 ==

== ENCOUNTER → 2024-08-22 12:28 | Outpatient (BNV) | payer MEDICAID, SELFPAY | PROVIDERS: Emergency Provider Emergency Medicine Emergency Medical Services; Visit Provider Radiology Diagnostic Radiology | DX: R10.9 Unspecified abdominal pain (principal) | CPT/HCPCS: 74176 ==

== ENCOUNTER 2024-12-30 18:15 | Emergency (ER) | payer MEDICAID, SELFPAY ==
--- NOTE | ~2024-12-30 | XR_ITS ---
CLINICAL HISTORY: shortness of breath 2 view chest x-ray Comparison: None Findings: Lungs are clear without acute infiltrates. No pneumothorax. Heart size normal. No acute bony abnormalities. Impression: No acute processes This document has been electronically signed by: Adam Mejia MD on 12/30/2024 18:44:12
[2024-12-30 18:24] VITALS: BP 133/45; PULSE 97; RESP 18; TEMP 36.9; O2SAT 96; BMI 22.1
--- NOTE | 2024-12-30 18:24 | ED_ITS ---
HPI - General Adult General Chief complaint: Upper Respiratory Symptoms Stated complaint: SOB pt says sick w/ flu like symp x 5dys Time Seen by Provider: 12/30/24 19:47 Source: patient Mode of arrival: ambulatory Limitations: no limitations History of Present Illness ED Provider: Nano Martinez APRN HPI narrative: 29 year old male without significant medical history presents to the ED due to 4 days of vomiting and body aches. He states 4 days ago he began to experience subjective at home fevers with weakness, cough, body aches and vomiting. He states his chest feels tight and becomes mildly short of breath during bouts of coughing. He reports having poor oral intake over the past 4 days but is feeling somewhat better today, eating chips and drinking apple juice during exam. He denies hemoptysis, headache, sore throat, visual changes, diarrhea, black or bloody stool, bilious or bloody vomiting. MD complaint: vomiting, body aches Related Data Previous Rx's ?Medication ?Instructions ?Recorded prednisone 20 mg tablet 20 mg PO DAILY 4 days #4 tabs 06/09/21 tamsulosin 0.4 mg capsule (Flomax) 0.4 mg PO BEDTIME #4 caps 06/09/21 ondansetron 4 mg disintegrating 4 mg PO Q6-8H PRN nausea and 05/13/22 tablet vomiting #7 tabs oxycodone 5 mg tablet 5 mg PO Q6H PRN Moderate Pain 05/13/22 (Scale Score 5-6) #20 tabs tamsulosin 0.4 mg capsule (Flomax) 0.4 mg PO DAILY #7 caps 05/13/22 hydrocortisone acetate 25 mg 25 mg [place] BID 5 days #12 ea 01/01/23 rectal suppository (Anusol-HC) polyethylene glycol 3350 17 17 g PO DAILY PRN constipation 01/01/23 gram/dose oral powder (Miralax) #238 grams cefuroxime axetil 250 mg tablet 250 mg PO BID #14 tabs 01/26/23 ketorolac 10 mg tablet 10 mg PO Q6H PRN pain 5 days #20 01/27/23 tabs oxycodone 5 mg tablet 5 mg PO Q4H PRN pain #14 tabs 01/27/23 tamsulosin 0.4 mg capsule (Flomax) 0.4 mg PO DAILY #30 caps 01/27/23 cephalexin 500 mg capsule 500 mg PO BID #28 caps 02/11/23 cyclobenzaprine 10 mg tablet 10 mg PO TID PRN muscle spasm #10 02/11/23 tabs ketorolac 10 mg tablet 10 mg PO Q8H 5 days #15 tabs 08/22/24 levofloxacin 500 mg tablet 500 mg PO DAILY 5 days #5 tabs 08/22/24 prednisone 20 mg tablet 20 mg PO DAILY 5 days #5 tabs 08/22/24 tamsulosin 0.4 mg capsule (Flomax) 0.4 mg PO BEDTIME 7 days #7 caps 08/22/24 Allergies Allergy/AdvReac Type Severity Reaction Status Date / Time No Known Allergies Allergy Verified 12/30/24 18:26 Review of Systems 2 Review of Systems: Yes all other systems are reviewed and are negative Constitutional: Constitutional: Reports no additional constitutional complaints, Reports body ache(s), Denies chills, Reports fever(s), Denies headache(s) and Denies weakness Eyes: Eyes: Reports no additional eye complaints and Denies change in vision ENT: Reports system reviewed and no additional complaints, except as documented, Denies dizziness, Denies headache(s), Denies nasal congestion, Denies nasal discharge and Denies neck pain Cardiovascular: Cardiovascular: Reports no additional cardiovascular complaints, Denies chest pain, Denies leg edema and Reports dyspnea Respiratory: Respiratory: Reports no additional respiratory complaints, Reports cough and Reports dyspnea Gastrointestinal: Gastrointestinal: Reports no additional gastrointestinal complaints, Denies abdominal pain, Denies diarrhea, Denies nausea and Reports vomiting Genitourinary: Genitourinary: Denies urinary incontinence Musculoskeletal: Musculoskeletal: Reports no additional musculoskeletal complaints, Denies back pain, Denies arthralgias, Denies joint swelling, Denies neck pain, Denies numbness and Denies tingling Integumentary/Breasts: Skin/Breast: Reports system reviewed and no additional complaints, except as docu and Denies rash Neurologic: Reports system reviewed and no additional complaints, except as documented, Denies Abnormal speech present, Denies dizziness, Denies headache(s), Denies numbness, Denies tingling and Denies weakness [facility] Past Medical History Attestation statement: The following information was validated with the patient. Source: old records reviewed Medical History No known health problems Social History Social History Alcohol intake: never Patient Tobacco Use Status: Current everyday Tobacco user Substance Use Type: Marijuana Advance Directives: No Advance Directives Information Provided: No Physical Exam ED Vital Signs: Vital Signs - 24 hr 12/30/24 18:24 12/30/24 20:08 Temperature 98.4 F 98.4 F Pulse Rate 97 97 Respiratory Rate 18 18 Blood Pressure 133/45 L 133/45 L Pulse Oximetry 96 96 Oxygen Delivery Method Room Air Room Air BMI result Body Mass Index 22.1 Const General: cooperative, healthy appearing, comfortable and no acute distress Orientation/consciousness: patient oriented x3 Limitations: no limitations HENMT Head: Yes normal to inspection Ears: hearing grossly normal bilaterally General nose exam: Normal external nose present Face and sinus: Yes normal facial exam Mouth: Normal oral and palatal mucosa present Throat: Yes posterior oropharynx normal Eyes General: appearance normal, both eyes and all related structures Pupils: Equal, round and reactive pupils present Neck Neck: Yes normal visual inspection Chest Chest palpation & inspection: normal inspection of the chest Resp Effort & Inspection: normal respiratory effort and audible wheezes (mild expiratory wheeze on right side) Auscultation: wheezes (right side ) expiratory wheezes Cardio Rate: regular rate Rhythm: regular rhythm Peripheral pulses: Peripheral pulses 2+ throughout GI Inspection: Yes normal to inspection Palpation (GI): Soft to palpation and nontender Auscultation: normal bowel sounds Back/Spine/Pelvis Thoracic/Lumbar Spine: thoracic and lumbar spine normal to inspection Skin General skin exam: no rashes or lesions noted Neuro General: patient oriented x3, no focal motor deficits and normal sensation to monofilament Cranial nerves: Yes Equal, round and reactive pupils present Cognition (Neuro): normal cognition Speech: No Abnormal speech present Gait exam (Neuro): Normal gait present Motor exam (neuro): 5/5 motor strength present throughout Extrem General: Yes normal to inspection Course Course Course Narrative: RME, this is a rapid medical exam performed by Mark Ramirez please refer to primary provider for complete H&P- 29 year old male presents for evaluation of cough, shortness of breath and chest pain. He has been sick for the last 5 days. He felt as though his symptoms were improving but then began to worsen again today. Medications Administered Discontinued Medications Generic Name Dose Route Start Last Admin Trade Name Davonte PRN Reason Stop Dose Admin Albuterol Sulfate 2 puff 12/30/24 19:53 12/30/24 20:08 Albuterol Sulfate 90 Mcg 8 Gm Inhaler INHALE 12/30/24 19:54 2 puff ONCE ONE Administration Medical Decision Making Medical Decision Making MDM Narrative: 29 year old male without significant medical history presents to the ED due to 4 days of vomiting and body aches. He states 4 days ago he began to experience subjective at home fevers with weakness, cough, body aches and vomiting. He states his chest feels tight and becomes mildly short of breath during bouts of coughing. He reports having poor oral intake over the past 4 days but is feeling somewhat better today, eating chips and drinking apple juice during exam. He denies hemoptysis, headache, sore throat, visual changes, diarrhea, black or bloody stool, bilious or bloody vomiting. Patients vital signs are stable, is in no acute distress and is appears non- toxic. Physical exam benign. Patient is eating and drinking during exam. Viral swabs positive for Flu B Differential Diagnosis Differential Diagnoses: The differential diagnosis associated with the presentation includes viral illness, pneumonia- low suspicion due to benign physical exam, gastritis, low suspicion for acute abdomen due to benign physical exam Admission/Observation Consideration of admission/observation: Escalation of care including admission/observation considered Flu B positive without hypoxia no need for supplemental oxygen. Patient is tolerating PO, non-toxic appearing. Lab Data [facility] Lab Attestation statement: I reviewed the patient's lab results. 12/30/24 18:54 12/30/24 18:54 Labs: Lab Results 12/30/24 Range/Units 18:54 WBC 5.6 (4.8-10.8) X10*3/uL RBC 5.08 (4.60-5.80) X10*6/uL Hgb 15.1 (14.0-18.0) g/dl Hct 42.5 (42.0-52.0) % MCV 83.7 (80.0-98.0) fL MCH 29.7 (27.0-33.0) pg MCHC 35.5 (31.0-36.0) g/dl RDW 12.4 (11.0-16.0) % Plt Count 159 L D (160-400) X10*3/uL MPV 10.0 (9.4-12.4) fL Immature Gran % (Auto) Cancelled Neut % (Auto) Cancelled Lymph % (Auto) Cancelled [place] % (Auto) Cancelled Eos % (Auto) Cancelled Baso % (Auto) Cancelled Lymph # (Auto) Cancelled [place] # (Auto) Cancelled Eos # (Auto) Cancelled Baso # (Auto) Cancelled Abs Immat Gran (auto) Cancelled Absolute Neuts (auto) Cancelled Absolute Nucleated RBC 0.000 (0.0-0.012) X10*3/uL Nucleated RBC % (auto) 0.0 (0.0-0.2) /100WBC Neutrophils % (Manual) 41 L (45-73) % Lymphocytes % (Manual) 48 H (20-40) % Monocytes % (Manual) 11 (2-11) % Abs Neuts (Manual) 2.3 (2.0-8.3) X10*3/uL Lymphocytes # (Manual) 2.7 (1.2-4.9) X10*3/uL Monocytes # (Manual) 0.6 (0.1-1.2) X10*3/uL [place] Cells PRESENT Platelet Estimate NORMAL (NORMAL) Plt Morphology Comment NORMAL RBC Morphology NOTED [place] Cells 2+ (3-5) /OIF Sodium 138 (135-145) mmol/L Potassium 3.3 (3.3-5.1) mmol/L Chloride 106 (96-108) mmol/L Carbon Dioxide 24 (22-29) mmol/L Anion Gap 11 L (12-20) BUN 18 H (9-16) mg/dL Creatinine 0.87 (0.5-1.4) mg/dL Estim Creat Clear Calc 114.4 Estimated GFR > 60 Random Glucose 76 (60-115) mg/dL Calcium 9.0 D (8.4-10.2) mg/dL Total Bilirubin 0.6 (0.0-1.0) mg/dL AST 44 H (5-37) U/L ALT 22 (0-40) U/L Alkaline Phosphatase 63 (39-117) U/L Total Protein 7.3 (6.5-8.0) g/dL Albumin 4.4 (3.5-5.0) g/dL Lipase 29 (8-78) U/L Influenza Type A (PCR) NEGATIVE (Negative) Influenza Type B (PCR) POSITIVE A (Negative) RSV RNA Qual (PCR) NEGATIVE (Negative) SARS-CoV-2 RNA (RT-PCR) NEGATIVE (Negative) S. pyogenes GrpA JEFFRY Negative (Negative) Independent Interpretation I performed an independent interpretation of an: EKG and Plain X-Ray Interpretation: I independently reviewed EKG which reveals normal rate at 73 BPM and normal rhythm. Short [place] interval at 108, normal QT/QTC, no ischemia noted. I independently reviewed chest X-ray and agree with radiologists impression Radiology Impression Discussion of test interpretation with radiology: I have reviewed the radiologist's reading. Radiologist Impression: CLINICAL HISTORY: shortness of breath 2 view chest x-ray Comparison: None Findings: Lungs are clear without acute infiltrates. No pneumothorax. Heart size normal. No acute bony abnormalities. Impression: No acute processes This document has been electronically signed by: Adam Mejia MD on 12/30/2024 18:44:12 External Record Review External record reviewed: Inpatient record, Office record and Outpatient record Prescription Management I considered prescription management with: Antiviral Considered treatment with tamiflu. Discussed with patient the side effects of GI upset and diarrhea with shared decision making decided against treatment. Counseled patient on bland diet, rest and hydration. Discharge Plan Discharge Clinical Impression: Influenza Patient Disposition: Home, Self-Care Instructions: Influenza (ED) Additional Instructions: Testing for COVID and RSV are negative. You do have the flu. Your lab work, EKG and chest x-ray are all reassuring Alternate Motrin and Tylenol for any pain or fever Increase fluids, rest Use the albuterol inhaler 2 puffs every 4 hours as needed for cough, wheezing or chest tightness Return for worsening symptoms Prescriptions: No Action tamsulosin [Flomax] 0.4 mg capsule 0.4 mg PO DAILY Qty: 7 0RF ondansetron 4 mg tablet,disintegrating 4 mg PO Q6-8H PRN (Reason: nausea and vomiting) Qty: 7 0RF oxycodone 5 mg tablet 5 mg PO Q6H PRN (Reason: Moderate Pain (Scale Score 5-6)) Qty: 20 0RF Rx Instructions: Partial Fill upon patient request. tamsulosin [Flomax] 0.4 mg capsule 0.4 mg PO BEDTIME Qty: 4 0RF prednisone 20 mg tablet 20 mg PO DAILY 4 Days Qty: 4 0RF polyethylene glycol 3350 [Miralax] 17 gram/dose powder 17 g PO DAILY PRN (Reason: constipation) Qty: 238 0RF hydrocortisone acetate [Anusol-HC] 25 mg suppository 25 mg [place] BID 5 Days Qty: 12 0RF cephalexin 500 mg capsule 500 mg PO BID Qty: 28 0RF cyclobenzaprine 10 mg tablet 10 mg PO TID PRN (Reason: muscle spasm) Qty: 10 0RF cefuroxime axetil 250 mg tablet 250 mg PO BID Qty: 14 0RF tamsulosin [Flomax] 0.4 mg capsule 0.4 mg PO DAILY Qty: 30 0RF ketorolac 10 mg tablet 10 mg PO Q6H PRN (Reason: pain) 5 Days Qty: 20 0RF oxycodone 5 mg tablet 5 mg PO Q4H PRN (Reason: pain) Qty: 14 0RF Rx Instructions: Patient may request partial fill; Partial Fill upon patient request. levofloxacin 500 mg tablet 500 mg PO DAILY 5 Days Qty: 5 0RF prednisone 20 mg tablet 20 mg PO DAILY 5 Days Qty: 5 0RF tamsulosin [Flomax] 0.4 mg capsule 0.4 mg PO BEDTIME 7 Days Qty: 7 0RF ketorolac 10 mg tablet 10 mg PO Q8H 5 Days Qty: 15 0RF Referrals: [facility] [Primary Care Provider] - 1 week Interventions: ED Discharge Assessment Last Done: 12/30/24 20:08 Discharge Date/Time: 12/30/24 20:08 Print Language: Setswana
--- NOTE | 2024-12-30 18:25 | ECG_ITS ---
Test Reason : PAIN Blood Pressure : */* mmHG Vent. Rate : 73 BPM Atrial Rate : 73 BPM P-R Int : 108 ms QRS Dur : 82 ms QT Int : 366 ms P-R-T Axes : 60 47 35 degrees QTcB Int : 403 ms Sinus rhythm with short SD Otherwise normal ECG When compared with ECG of 22-Aug-2024 13:11, No significant change was found Referred By: Bear Ramirez Electronically Signed By: DENI CHING
[2024-12-30 19:05] LABS: Hematocrit 42.5 % (42.0-52.0); Hemoglobin 15.1 g/dl (14.0-18.0); Mean Corpuscular HGB Conc 35.5 g/dl (31.0-36.0); Mean Corpuscular Hemoglobin 29.7 pg (27.0-33.0); Mean Corpuscular Volume 83.7 fL (80.0-98.0); Platelet Count 159 X10*3/uL (160-400); Red Blood Count 5.08 X10*6/uL (4.60-5.80); Red Cell Distribution Width 12.4 % (11.0-16.0); White Blood Count 5.6 X10*3/uL (4.8-10.8)
[2024-12-30 19:10] LABS: IDNOW Serial# 6674DD1D; Strep A Nucleic Acid Negative (Negative)
[2024-12-30 19:18] LABS: Alanine Aminotransferase 22 U/L (0-40); Albumin Level 4.4 g/dL (3.5-5.0); Alkaline Phosphatase 63 U/L (39-117); Anion Gap 11 (12-20); Aspartate Amino Transferase 44 U/L (5-37); Bilirubin Total 0.6 mg/dL (0.0-1.0); Blood Urea Nitrogen 18 mg/dL (9-16); Carbon Dioxide 24 mmol/L (22-29); Chloride 106 mmol/L (96-108); Creatinine Clr Calc Pharmacy 114.4; Estimated Glomerular Filt Rate > 60; Glucose Random 76 mg/dL (60-115); Lipase 29 U/L (8-78); Potassium 3.3 mmol/L (3.3-5.1); Sodium 138 mmol/L (135-145); Total Protein 7.3 g/dL (6.5-8.0)
[2024-12-30 19:26] LABS: Lymphocytes Absolute Manual 2.7 X10*3/uL (1.2-4.9); Lymphocytes Percent Manual 48 % (20-40); Monocytes Absolute Manual 0.6 X10*3/uL (0.1-1.2); Monocytes Percent Manual 11 % (2-11); Neutrophils Percent Manual 41 % (45-73)
[2024-12-30 19:27] LABS: Burr Cells 2+ (3-5) /OIF; RBC Morphology NOTED; Smudge Cells PRESENT
[2024-12-30 19:28] LABS: Neutrophils Absolute Manual 2.3 X10*3/uL (2.0-8.3); Platelet Estimate NORMAL (NORMAL); Platelet Morphology Comment NORMAL
[2024-12-30 19:41] LABS: Influenza A PCR NEGATIVE (Negative); Influenza B PCR POSITIVE (Negative); Resp Syncy Virus RNA Qual PCR NEGATIVE (Negative); SARS COV2 PCR INHOUSE NEGATIVE (Negative)
[2024-12-30 20:08] VITALS: BP 133/45; PULSE 97; RESP 18; TEMP 36.9; O2SAT 96
[2024-12-30] MEDS: Albuterol Sulfate 90 MCG 8 GM INHALER 2 PUFF INHALE (20:08)
== END 2024-12-30 20:08 | disposition home or self-care (01) ==
PROVIDERS: Physician Assistant; Emergency Provider Emergency Medicine
DX: J10.1 Influenza due to other identified influenza virus with other respiratory manifestations (principal); R06.02 Shortness of breath; R11.10 Vomiting, unspecified; R50.9 Fever, unspecified; M79.10 Myalgia, unspecified site; R07.89 Other chest pain; Z03.818 Encounter for observation for suspected exposure to other biological agents ruled out
CPT/HCPCS: 0241U; 36415; 71046; 80053; 83690; 85007; 85027; 87651; 93005; 99283; 99284

== ENCOUNTER → 2024-12-30 18:25 | Outpatient (BNV) | payer MEDICAID, SELFPAY | PROVIDERS: Emergency Provider Emergency Medicine; Visit Provider Internal Medicine | DX: R52 Pain, unspecified (principal) | CPT/HCPCS: 93010 ==

== ENCOUNTER → 2024-12-30 18:25 | Outpatient (BNV) | payer MEDICAID, SELFPAY | PROVIDERS: Visit Provider Radiology Diagnostic Radiology | DX: R06.02 Shortness of breath (principal) | CPT/HCPCS: 71046 ==

== ENCOUNTER 2025-02-01 18:46 | Emergency (ER) | payer MEDICAID, SELFPAY ==
--- NOTE | ~2025-02-01 | XR_ITS ---
CLINICAL HISTORY: pain 3 view right shoulder Comparison: None Findings: Mild osteoarthritis of the right AC joint without dislocation. No displaced fracture or dislocation of the right glenohumeral joint. Atelectasis partially imaged in the [id number]. IMPRESSION: Mild osteoarthritis of the right AC joint. This document has been electronically signed by: Bryce Agudelo MD on 02/01/2025 20:08:32
--- NOTE | ~2025-02-01 | XR_ITS ---
CLINICAL HISTORY: CP 2 view chest x-ray Comparison: Chest x-ray from 12/30/2024 Findings: No consolidation, pneumothorax, or pleural effusion. Borderline elevation of the left hemidiaphragm. Imaged mediastinum and imaged osseous structures appear unchanged. IMPRESSION: No consolidation This document has been electronically signed by: Bryce Agudelo MD on 02/01/2025 20:11:01
--- NOTE | 2025-02-01 18:48 | ECG_ITS ---
Test Reason : CHEST PAIN Blood Pressure : */* mmHG Vent. Rate : 69 BPM Atrial Rate : 69 BPM P-R Int : 120 ms QRS Dur : 86 ms QT Int : 392 ms P-R-T Axes : 5 54 28 degrees QTcB Int : 420 ms Normal sinus rhythm Normal ECG When compared with ECG of 30-Dec-2024 18:48, No significant change was found Referred By: Generic ED Physician Electronically Signed By: MAIKOL LANDON MD
[2025-02-01 19:09] VITALS: BP 129/72; PULSE 63; RESP 20; TEMP 36.3; O2SAT 99; BMI 22.0
--- NOTE | 2025-02-01 19:09 | ED.GENADULT ---
HPI - General Adult General Chief complaint: Chest Pain Stated complaint: chest pain, sob Time Seen by Provider: 02/01/25 19:35 Source: patient Mode of arrival: ambulatory Limitations: no limitations History of Present Illness ED Provider: HPI narrative: Patient apparently bumped into other person shoulder while playing basketball 2 days ago since then has pain in the right anterior chest wall increases on palpation and taking deep breath no other injuries Related Data Previous Rx's ?Medication ?Instructions ?Recorded prednisone 20 mg tablet 20 mg PO DAILY 4 days #4 tabs 06/09/21 tamsulosin 0.4 mg capsule (Flomax) 0.4 mg PO BEDTIME #4 caps 06/09/21 ondansetron 4 mg disintegrating 4 mg PO Q6-8H PRN nausea and 05/13/22 tablet vomiting #7 tabs oxycodone 5 mg tablet 5 mg PO Q6H PRN Moderate Pain 05/13/22 (Scale Score 5-6) #20 tabs tamsulosin 0.4 mg capsule (Flomax) 0.4 mg PO DAILY #7 caps 05/13/22 hydrocortisone acetate 25 mg 25 mg OR BID 5 days #12 ea 01/01/23 rectal suppository (Anusol-HC) polyethylene glycol 3350 17 17 g PO DAILY PRN constipation 01/01/23 gram/dose oral powder (Miralax) #238 grams cefuroxime axetil 250 mg tablet 250 mg PO BID #14 tabs 01/26/23 ketorolac 10 mg tablet 10 mg PO Q6H PRN pain 5 days #20 01/27/23 tabs oxycodone 5 mg tablet 5 mg PO Q4H PRN pain #14 tabs 01/27/23 tamsulosin 0.4 mg capsule (Flomax) 0.4 mg PO DAILY #30 caps 01/27/23 cephalexin 500 mg capsule 500 mg PO BID #28 caps 02/11/23 cyclobenzaprine 10 mg tablet 10 mg PO TID PRN muscle spasm #10 02/11/23 tabs ketorolac 10 mg tablet 10 mg PO Q8H 5 days #15 tabs 08/22/24 levofloxacin 500 mg tablet 500 mg PO DAILY 5 days #5 tabs 08/22/24 prednisone 20 mg tablet 20 mg PO DAILY 5 days #5 tabs 12/17/24 tamsulosin 0.4 mg capsule (Flomax) 0.4 mg PO BEDTIME 7 days #7 caps 08/22/24 ibuprofen 600 mg tablet 600 mg PO Q6H PRN fever or pain 02/01/25 #30 tabs Allergies Allergy/AdvReac Type Severity Reaction Status Date / Time No Known Allergies Allergy Verified 02/01/25 19:11 Review of Systems Review of Systems: Yes all other systems are reviewed and are negative [facility] Past Medical History Medical History No known health problems Social History Social History Alcohol intake: never Patient Tobacco Use Status: Current everyday Tobacco user Smoked in Last 30 Days: Yes Use of substances other than those prescribed or required for medical reasons: No Substance Use Type: Marijuana Advance Directives: No Advance Directives Information Provided: No Physical Exam ED Vital Signs: Vital Signs - 24 hr 02/01/25 19:09 02/01/25 21:18 Temperature 97.4 F 97.4 F Pulse Rate 63 63 Respiratory Rate 20 20 Blood Pressure 129/72 129/72 Pulse Oximetry 99 99 Oxygen Delivery Method Room Air Room Air BMI result Body Mass Index 22.0 Appearance: Alert. Oriented X3. No acute distress. Eyes: No pallor or icterus ENT: Pharynx normal. Oral Mucosa moist Neck: Normal inspection. Neck supple. CVS: Normal heart rate and rhythm. Pulses normal. Respiratory: No respiratory distress. Equal air entry bilateral, no wheezing/rales/rhonchi superficial tenderness right chest wall Abdomen: Soft and nontender. Bowel sounds are present, no mass palpable, no CVA tenderness Skin: Skin warm and dry. Normal skin color. Normal skin turgor. Extremities: No lower extremity edema. No calf tenderness Neuro: Oriented X 3. No motor deficit. Course Course Course Narrative: This is an RME: Additional HPI, ROS, PE not included below will be deferred to primary provider. RME assessment and note performed by: Maria R Rg PA-C This is a [id number], with no known medical problems, who presents to the ER with concerns for right shoulder pain and right sided CP. Reports that he was playing basketball yesterday and his 200lb brother bumped into him and he felt a pop in his right chest. He states that at work he was lifting at work today and developed r shoulder pain. Reporting some mild SOB. Plan: xray Medications Administered Discontinued Medications Generic Name Dose Route Start Last Admin Trade Name Freq PRN Reason Stop Dose Admin Ibuprofen 600 mg 02/01/25 20:50 02/01/25 20:58 Ibuprofen 600 Mg Tablet PO 02/01/25 20:51 600 mg ONCE ONE Administration Oxycodone HCl 10 mg 02/01/25 20:50 02/01/25 20:57 Oxycodone Hcl Immed Release 5 Mg Tablet PO 02/01/25 20:51 10 mg ONCE ONE Administration Medical Decision Making Medical Decision Making MDM Narrative: Patient's right chest wall pain off the left injury chest x-ray negative for rib fracture will prescribe ibuprofen for musculoskeletal pain Differential Diagnosis Differential Diagnoses: The differential diagnosis associated with the presentation includes Pneumothorax/rib fracture/musculoskeletal pain Independent Interpretation I performed an independent interpretation of an: EKG and Plain X-Ray Interpretation: No acute Normal sinus rhythm heart rate 69 beats per minute normal interval normal axis no acute ST-T no acute ischemia impression normal EKG Discharge Plan Discharge Clinical Impression: Anterior chest wall pain Patient Disposition: Home, Self-Care Instructions: Chest Wall Pain (ED) Additional Instructions: Take pain medication as prescribed Your chest x-ray is normal Chest pain is likely musculoskeletal Prescriptions: New ibuprofen 600 mg tablet 600 mg PO Q6H PRN (Reason: fever or pain) Qty: 30 0RF No Action tamsulosin [Flomax] 0.4 mg capsule 0.4 mg PO DAILY Qty: 7 0RF ondansetron 4 mg tablet,disintegrating 4 mg PO Q6-8H PRN (Reason: nausea and vomiting) Qty: 7 0RF oxycodone 5 mg tablet 5 mg PO Q6H PRN (Reason: Moderate Pain (Scale Score 5-6)) Qty: 20 0RF Rx Instructions: Partial Fill upon patient request. tamsulosin [Flomax] 0.4 mg capsule 0.4 mg PO BEDTIME Qty: 4 0RF prednisone 20 mg tablet 20 mg PO DAILY 4 Days Qty: 4 0RF polyethylene glycol 3350 [Miralax] 17 gram/dose powder 17 g PO DAILY PRN (Reason: constipation) Qty: 238 0RF hydrocortisone acetate [Anusol-HC] 25 mg suppository 25 mg OR BID 5 Days Qty: 12 0RF cephalexin 500 mg capsule 500 mg PO BID Qty: 28 0RF cyclobenzaprine 10 mg tablet 10 mg PO TID PRN (Reason: muscle spasm) Qty: 10 0RF cefuroxime axetil 250 mg tablet 250 mg PO BID Qty: 14 0RF tamsulosin [Flomax] 0.4 mg capsule 0.4 mg PO DAILY Qty: 30 0RF ketorolac 10 mg tablet 10 mg PO Q6H PRN (Reason: pain) 5 Days Qty: 20 0RF oxycodone 5 mg tablet 5 mg PO Q4H PRN (Reason: pain) Qty: 14 0RF Rx Instructions: Patient may request partial fill; Partial Fill upon patient request. levofloxacin 500 mg tablet 500 mg PO DAILY 5 Days Qty: 5 0RF prednisone 20 mg tablet 20 mg PO DAILY 5 Days Qty: 5 0RF tamsulosin [Flomax] 0.4 mg capsule 0.4 mg PO BEDTIME 7 Days Qty: 7 0RF ketorolac 10 mg tablet 10 mg PO Q8H 5 Days Qty: 15 0RF Stand Alone Forms: Work/School Release Interventions: ED Discharge Assessment Last Done: 02/01/25 21:18 Print Language: Somali
[2025-02-01] MEDS: oxyCODONE HCl Immed Release 5 MG TABLET 10 MG PO (20:57)
[2025-02-01] MEDS: Ibuprofen 600 MG TABLET PO (20:58)
[2025-02-01 21:18] VITALS: BP 129/72; PULSE 63; RESP 20; TEMP 36.3; O2SAT 99
== END 2025-02-01 21:37 | disposition home or self-care (01) ==
PROVIDERS: Emergency Provider Internal Medicine
DX: R07.89 Other chest pain (principal); M25.511 Pain in right shoulder; R06.02 Shortness of breath; F12.90 Cannabis use, unspecified, uncomplicated; F17.210 Nicotine dependence, cigarettes, uncomplicated
CPT/HCPCS: 71046; 73030; 93005; 99283; 99285

== ENCOUNTER → 2025-02-01 18:48 | Outpatient (BNV) | payer MEDICAID, SELFPAY | PROVIDERS: Emergency Provider Internal Medicine; Visit Provider Internal Medicine Cardiovascular Disease | DX: R07.9 Chest pain, unspecified (principal) | CPT/HCPCS: 93010 ==

== ENCOUNTER → 2025-02-01 19:21 | Outpatient (BNV) | payer MEDICAID, SELFPAY | PROVIDERS: Emergency Provider Internal Medicine; Visit Provider Radiology Neuroradiology | DX: R07.9 Chest pain, unspecified (principal); M25.511 Pain in right shoulder | CPT/HCPCS: 71046; 73030 ==